=== PATIENT | female | born 1960 | race Caucasian/White ===

== ENCOUNTER → 2018-03-19 11:12 | Outpatient (CLI) | payer OTHER, SELFPAY ==
--- NOTE | 2018-03-19 11:16 | BI_ITS ---
MAMMOGRAPHY - BILATERAL SCREENING REASON FOR EXAM: Female, 57 years old. Routine annual screening examination. PERTINENT HISTORY: Sister with breast cancer. TECHNIQUE: Digital bilateral breast livia (3D mammographic acquisition) in the CC and MLO projections. 2-D mediolateral oblique (MLO) and craniocaudad (CC) views of both breasts were obtained. CAD: Full Field Digital Mammography with Computer Added Detection was performed. COMPARISON: Comparison is made with prior study dated January 26, 2017. FINDINGS: Breast Composition: The breasts are almost entirely fatty. There are no dominant masses or suspicious calcifications. No other significant abnormalities are identified. There has been no significant change since the prior study. BI/SCREENING MAMM (CAD), BILAT IMPRESSION: Stable bilateral screening mammogram. Yearly follow-up mammogram recommended. (A) ASSESSMENT CATEGORY: BIRADS Category 1: Negative. A letter regarding these results will be sent to the patient by the facility within 30 days. Approximately 10% of breast cancers are not detected by mammography. A normal mammogram should not delay biopsy of a clinically suspicious abnormality. [id number] Electronically Signed: Jose Calderon MD at 14:15 EDT Tel [phone], Service support ,
[2018-03-22 08:49] LABS: HPV APTIMA, High Risk Negative (Negative)
== END ==
PROVIDERS: Family Provider Family Medicine; PCP Family Medicine; Visit Provider Obstetrics & Gynecology
DX: Z12.31 Encounter for screening mammogram for malignant neoplasm of breast (principal); Z12.4 Encounter for screening for malignant neoplasm of cervix; Z80.3 Family history of malignant neoplasm of breast
CPT/HCPCS: 77063; 77067; 88175; G0145

== ENCOUNTER → 2021-04-25 10:16 | Outpatient (CLI) | payer OTHER, SELFPAY ==
[2021-04-25 09:36] VITALS: BMI 22.6
--- NOTE | 2021-04-25 10:18 | BI_ITS ---
MAMMOGRAPHY - BILATERAL SCREENING 3-D TOMOSYNTHESIS REASON FOR EXAM: Female, 61 years old. Annual screening. PERTINENT HISTORY: No significant family history. TECHNIQUE: 2-D mammograms and 3-D Tomosynthesis of the breast (s) were performed. CAD was performed. COMPARISON: 03/19/2018. FINDINGS: The breast composition is almost entirely fat. Scattered benign calcifications are seen. No dense spiculated masses or suspicious microcalcifications are identified. No architectural distortion is identified. There is no skin thickening or retraction. Normal lymph nodes in both axillae. There has been no significant change since the prior study. BI/SCRN MAMM (CAD)W/LIZBETH BILAT IMPRESSION: No mammographic signs of malignancy. Routine yearly mammograms recommended. ASSESSMENT CATEGORY: BIRADS Category 2: Benign. A letter regarding these results will be sent to the patient by the facility within 30 days. FOLLOW UP RECOMMENDATION: Yearly follow up mammogram recommended. (A) Approximately 10% of breast cancers are not detected by mammography. A normal mammogram should not delay biopsy of a clinically suspicious abnormality. Electronically Signed: Angel Aguayo MD at 10:58 EDT , Service support ,
[2021-04-27 22:04] LABS: HPV APTIMA, High Risk Negative (Negative)
== END ==
PROVIDERS: PCP Family Medicine; Referring Provider Obstetrics & Gynecology; Visit Provider Obstetrics & Gynecology
DX: Z12.31 Encounter for screening mammogram for malignant neoplasm of breast (principal); Z12.4 Encounter for screening for malignant neoplasm of cervix
CPT/HCPCS: 77063; 77067; 87624; 88175; G0145

== ENCOUNTER → 2023-04-26 | Outpatient (CLI) | payer MEDICARE, SELFPAY ==
--- NOTE | 2023-04-26 10:26 | BI_ITS ---
MAMMOGRAPHY - BILATERAL SCREENING REASON FOR EXAM: Female, 63 years old. Routine annual screening examination. PERTINENT HISTORY: Sister with breast cancer. TECHNIQUE: Digital bilateral breast lizbeth (3D mammographic acquisition) in the CC and MLO projections. 2-D mediolateral oblique (MLO) and craniocaudad (CC) views of both breasts were obtained. CAD: Full Field Digital Mammography with Computer Added Detection was performed. COMPARISON: Mammogram from 04/25/2021, 03/19/2018. FINDINGS: Breast Composition: There are scattered areas of fibroglandular density. There are no dominant masses or suspicious calcifications. Stable benign-appearing bilateral scattered calcifications. Stable small bilateral benign-appearing axillary lymph nodes. No other significant abnormalities are identified. There has been no significant change since the prior study. BI/SCRN MAMM (CAD)W/LIZBETH BILAT IMPRESSION: Stable bilateral screening mammogram. Yearly follow-up mammogram recommended. (A) ASSESSMENT CATEGORY: BIRADS Category 2: Benign. A letter regarding these results will be sent to the patient by the facility within 30 days. Approximately 10% of breast cancers are not detected by mammography. A normal mammogram should not delay biopsy of a clinically suspicious abnormality. Electronically Signed: Isaac Guevara DO at 8:41 EDT ,
== END | disposition home or self-care (01) ==
PROVIDERS: PCP Family Medicine; Referring Provider Nurse Practitioner Women's Health; Visit Provider Nurse Practitioner Women's Health
DX: Z12.31 Encounter for screening mammogram for malignant neoplasm of breast (principal); Z80.3 Family history of malignant neoplasm of breast
CPT/HCPCS: 77063; 77067

== ENCOUNTER → 2024-04-28 | Outpatient (CLI) | payer MEDICARE, SELFPAY ==
--- NOTE | 2024-04-28 08:11 | BI_ITS ---
MAMMOGRAPHY - BILATERAL SCREENING REASON FOR EXAM: Female, 64 years old. Routine annual screening examination. PERTINENT HISTORY: Sister with breast cancer. TECHNIQUE: Digital bilateral breast lizbeth (3D mammographic acquisition) in the CC and MLO projections. 2-D mediolateral oblique (MLO) and craniocaudad (CC) views of both breasts were obtained. CAD: Full Field Digital Mammography with Computer Added Detection was performed. COMPARISON: Comparison is made with prior study dated April 26, 2023 and April 25, 2021. FINDINGS: Breast Composition: The breasts are almost entirely fatty. There are no dominant masses or suspicious calcifications. No other significant abnormalities are identified. There has been no significant change since the prior study. BI/SCRN MAMM (CAD)W/LIZBETH BILAT IMPRESSION: Stable bilateral screening mammogram. Yearly follow-up mammogram recommended. (A) ASSESSMENT CATEGORY: BIRADS Category 1: Negative. A letter regarding these results will be sent to the patient by the facility within 30 days. Approximately 10% of breast cancers are not detected by mammography. A normal mammogram should not delay biopsy of a clinically suspicious abnormality. [id number] Electronically Signed: Jose Calderon MD at 9:33 EDT ,
== END | disposition home or self-care (01) ==
LOC: OPBI 08:11
PROVIDERS: PCP Family Medicine; Referring Provider Nurse Practitioner Women's Health; Visit Provider Nurse Practitioner Women's Health
DX: Z12.31 Encounter for screening mammogram for malignant neoplasm of breast (principal)
CPT/HCPCS: 77063; 77067

== ENCOUNTER → 2025-05-26 | Outpatient (CLI) | payer MEDICARE, SELFPAY ==
--- NOTE | 2025-05-26 12:21 | BI_ITS ---
EXAM: SCRN MAMM (CAD)W/LIZBETH BILAT DATE: 05/26/2025 CLINICAL HISTORY: F, Age 65 y/o , SCREENING FOR BREAST CANCER TECHNIQUE: SCRN MAMM (CAD)W/LIZBETH BILAT COMPARISON: Prior exam(s) were compared FINDINGS: TISSUE DENSITY: There are scattered areas of fibroglandular density. Bilateral Breast Mammographic Findings: No suspicious masses, calcifications or other abnormalities are identified. BI/SCRN MAMM (CAD)W/LIZBETH BILAT IMPRESSION: No mammographic evidence of malignancy in either breast OVERALL FINAL ASSESSMENT BI-RADS 1: NEGATIVE. RECOMMENDATION: Routine annual follow-up in 1 Year A letter with findings and recommendations will be mailed to the patient. Reading Location: [id number]
--- OUTSIDE RECORDS SUMMARY | 2025-05-26 20:34 | XMS RPT_ITS | CCD ---
Author Organization [facility] Inform ion Partnership [facility] Care Team Providers Care Inside Tester Name Role Phone Dr. Eduardo Shook Primary Care Provider Dr. Eduardo Shook Referring Provider [phone] Mau ALIGNER, RAMBOC Monie Attending Provider Eduardo Shook MD Unavailable Sanjay DOUGLAS, Carlota Dominique Unavailable Ángel COMPUTER SYSTEMS MANAGER, Nichol Unavailable Vishnu DOUGLAS, Abbe Gamboa Unavailable James SIMMONS, Rajani Villa Unavailable [phone] Beverly Pang Unavailable Unavailable Eliot SHAHN, Maru Unavailable Unavailable Nia GONZALEZ, Rajani Gamboa Unavailable Unavaila ble Angie GONZALEZ, Coco Sewell Unavailable Unavailable Josiah SIMMONS, Miriam Masters Unavailable Laura Proctor Unavailable Rea COMPUTER SYSTEMS MANAGER, Kimber Unavailable Unavailab le Vess COMPUTER SYSTEMS MANAGER, Carolyn L Unavailable Unavailable [place] COMPUTER SYSTEMS MANAGER, Pastora Unavailable Unavailabl maria Desir COMPUTER SYSTEMS MANAGER, Debra Lainez Unavailable Unavaila ble Unavailable Unavailable EDUARDO SHOOK MD Primary Care Physician [phone] EDUARDO SHOOK MD Primary Care Unavailable DOMINGA DOUGLAS, DR EDILBERTO Warren Admitting Pop CARTER MD, DR BILLINGS Consulting Unavailab jo CARTER MD, DR BILLINGS Attending Unavailab oj ADKINS MD, JANNIE PEACOCK Consulting Unavailable Dong COMPUTER SYSTEMS MANAGER, Eitan Unavailable Unavailable Young COMPUTER SYSTEMS MANAGER, Natalia Unavailable UnavailRadha Chow MA Unavailable Unavailable Abbott, Ne R Unavailable Unavailable AWA CARTER MD Primary Care Unavailable AWA CARTER MD Admitting Unavailable AWA CARTER MD Attending Unavailable WELDON, MIRIAM J Consulting Unavailable PROVIDER, UNKNOWN Consulting Unavailable AWA CARTER MD Attending Unavailable AWA CARTER MD Primary Care Unavailable AWA CARTER MD Admitting Unavailable WELDON, MIRIAM J Consulting Unavailable PROVIDER, UNKNOWN Consulting Unavailable JOSIAH, MIRIAM J Consulting Unavailable EDUARDO SHOOK Attending Unavailable EDUARDO SHOOK Primary Care Unavailable EDUARDO SHOOK Admitting Unavailable PROVIDER, UNKNOWN Consulting Unavailable AWA CARTER MD Attending Unavailable AWA CARTER MD Primary Care Unavailable AWA CARTER MD Admitting Unavailable WELDON, MIRIAM J Consulting Unavailable PROVIDER, UNKNOWN Consulting Unavailable AWA CARTER MD Attending Unavailable AWA CARTER MD Primary Care Unavailable AWA CARTER MD Admitting Unavailable WELDON, MIRIAM J Consulting Unavailable PROVIDER, UNKNOWN Consulting Unavailable Griselda Ward Attending Unavailable Eduardo Shook Referring Unavailable Eduardo Shook Primary Care Unavailable Eduardo Shook Primary Care Unavailable Griselda Ward Referring Unavailable Griselda Ward Attending Unavailable Boone DOUGLAS, Dr. Clark Primary Care Provider Dr. Griselda Ward MD Attending Provider Dr. Griselda Ward MD Referring Provider Dr. Eduardo Shook MD Referring Provider Allergies Allergy Classification Reported Allergen(s) Allergy Type Date of Onset Reaction(s) Facility Amoxicillin / Clavulanate (2 sources) Amoxicillin / Clavulanate Drug Allergy [facility], [employer] [facility], [employer]. (2 sources) Amoxicillin Drug Allergy 3 [facility] Comment on above: broke out in sweat (2 sources) Clavulanate Drug Allergy 3 [facility] Comment on above: broke out in sweat (20 sources) Amoxicillin / Clavulanate Drug Allergy [facility], [employer] (1 source) Amoxicillin / Clavulanate; Translations: [amoxicillin-cl avulanate] Drug Allergy [facility] (1 source) Amoxicillin Drug Allergy [address] [place] [address] Repository (1 source) Clavulanate Drug Allergy [facility] Repository Medications Current Medications Medication Drug Class(es) Dates Sig (Normalized) Sig (Original) aspirin 81 mg delayed release oral tablet (20 sources) Platelet Aggregation Inhibitor, Nonsteroidal Anti-inflammatory Drug Start: 02-06-2024 Aspirin (Adult Low Dose Aspirin) 81 mg tablet,delayed release (DR/EC) Active 81 mg PO DAILY April 28, 2024 12:00am Start: 04-25-2021 End: 04-26-2023 take 1 tablet by mouth once daily Aspirin 325 mg tablet Discontinued 325 mg PO DAILY April 25, 2021 12:00am April 26, 2023 9:53am atorvastatin 40 mg oral tablet (20 sources) HMG-CoA Reductase Inhibitor Start: 02-06-2024 take 1 tablet by mouth once daily Atorvastatin 40 mg tablet Active 40 mg PO DAILY April 28, 2024 12:00am 24 hr metoprolol succinate 25 mg extended release oral tablet (20 sources) beta-Adrenergic Dick Start: 04-28-2024 take 2 tablets by mouth once daily Metoprolol Succinate 25 mg tablet extended release 24 hr Active 12.5 mg PO DAILY April 28, 2024 12:00am Start: 02-06-2024 metoprolol suc cinate 25 mg oral TABLET extended release Dose : 12.5 mg = 0.5 tab(s), Oral, qDay, # 15 tab(s), 11 Refill(s), Pharmacy: [facility], 165.1, cm, 02/03/24 10:41:00 EDT, Height, kg, 02/03/24 10:41:00 EDT, Dosing Weight Start Date: 02/06/24 Status: Ordered Start: 02-06-2024 End: 02-06-2024 metoprolol succinate 25 mg o ral TABLET extended release Start: 02/06/24 8:00:00 AM EDT, Dose = 12.5 mg, = 0.5 tab(s), Oral, give with food, 0, 02/03/24 12:08:00 EDT Start Date: 02/06/24 Stop Date: 02/06/24 Status: Completed Start: 02-05-2024 End: 02-05-2024 metoprolol succinate 25 mg o ral TABLET extended release Start: 02/05/24 8:00:00 AM EDT, Dose = 12.5 mg, = 0.5 tab(s), Oral, give with food, 0, 02/03/24 12:08:00 EDT Start Date: 02/05/24 Stop Date: 02/05/24 Status: Completed Start: 02-04-2024 End: 02-04-2024 metoprolol succinate 25 mg o ral TABLET extended release Start: 02/04/24 8:00:00 AM EDT, Dose = 12.5 mg, = 0.5 tab(s), Oral, give with food, 0, 02/03/24 12:08:00 EDT Start Date: 02/04/24 Stop Date: 02/04/24 Status: Completed Toprol XL 25 mg tablet,extended release ; daily (25 mg) Comments: take half tab Comment on above: take half tab Multivitamin preparation (20 sources) Start: 03-19-2018 take 1 tablet by mouth once daily Multivitamin Active 1 TABLET PO daily March 19, 2018 12:00am take 1 tablet by mouth once meg y MULTIVITAMIN (PO Tab) ; 1 daily Status: Inactive take 1 tablet by mouth once meg y MULTIVITAMIN (PO Tab) ; 1 daily Completed/Discontinued Medications Medication Drug Class(es) Dates Sig (Normalized) Sig (Original) amoxicillin 875 mg / clavulanate 125 mg oral tablet (20 sources) Penicillin-class Antibacterial Start: 09-13-2020 End: 09-23-2020 take 1 tablet by mouth twice daily Amoxicillin-Pot Clavulanate 875-125 MG Oral Tablet ; 1 (one) Tablet bid for 10 days Quantity: 20 {Tablet} Refills: 0 Ordered: 13-Sep-2020 MD Eduardo Shook Start: 13-Sep-2020 End: 23-Sep-2020 Status: Inactive Comments: take w food Comment on above: take w food azithromycin 250 mg oral tablet (20 sources) Macrolide Antimicrobial Start: 03-09-2025 End: 03-14-2025 azithromycin 250 mg tablet ; 2 (two) tablet today then 1 qd x 4 days for 5 days Quantity: 6 {Tablet} Refills: 0 Ordered: 09-Mar-2025 MD Eduardo Shook Start: 09-Mar-2025 End: 14-Mar-2025 Status: Inactive Start: 11-14-2023 End: 11-19-2023 azithromycin 250 mg tablet ; 2 (two) tablet today then 1 qd x 4 days for 5 days Quantity: 6 {Tablet} Refills: 0 Ordered: 14-Nov-2023 MD Eduardo Shook Start: 14-Nov-2023 End: 19-Nov-2023 Status: Inactive Start: 01-01-2017 End: 02-08-2017 Zithromax Z-Gino 250 MG Oral Tablet ; 2 (two) Tabs day one, then one daily for 4 days for 0 days Quantity: 1 {Package} Refills: 0 Ordered: 08-Feb-2017 JENNIFER Wallis Pastora Start: 01-Jan-2017 End: 08-Feb-2017 Status: Inactive cephalexin 500 mg oral capsule (20 sources) Cephalosporin Antibacterial Start: 09-14-2020 End: 09-24-2020 take 2 capsules by mouth twice daily Cephalexin 500 MG Oral Capsule ; 2 (two) Capsule bid for 10 days Quantity: 40 {Capsule} Refills: 0 Ordered: 14-Sep-2020 MD Eduardo Shook Start: 14-Sep-2020 End: 24-Sep-2020 Status: Inactive estrogens, conjugated (chcf) 0.625 mg/ml vaginal cream (20 sources) Estrogen Start: 02-09-2017 End: 09-24-2023 Premarin 0.625 mg/gram vaginal cream ; 0.5 gram gram daily x 2 weeks and then twice a week for 0 days Quantity: 30 {Gram} Refills: 0 Ordered: 24-Sep-2023 JENNIFER Rincon Bernadette Recinos Start: 09-Feb-2017 End: 24-Sep-2023 Status: Inactive famciclovir 500 mg oral tablet (20 sources) Herpes Simplex Virus Nucleoside Analog DNA Polymerase Inhibitor Start: 12-11-2017 End: 12-18-2017 take 1 tablet by mouth every eight hours Famvir 500 MG Oral Tablet ; 1 (one) Tablet Every 8 hours for shingles for 7 days Quantity: 21 {Tablet} Refills: 0 Ordered: 11-Dec-2017 MD Eduardo Shook Start: 11-Dec-2017 End: 18-Dec-2017 Status: Inactive fluticasone propionate 0.05 mg/actuat metered dose nasal spray (20 sources) Corticosteroid Start: 06-17-2013 End: 02-03-2014 take 2 spray(s) nasal route once daily FLUTICASONE PROPIONATE, 50MCG/ACT (Nasal Suspension) ; 2 (two) spray(s) two puffs each nostril once daily for 0 days Quantity: 1 {bottle(s)} Refills: 2 Ordered: 03-Feb-2014 JENNIFER Neal Start: 17-Jun-2013 End: 03-Feb-2014 Status: Inactive gabapentin 300 mg oral capsule (20 sources) Anti-epileptic Agent Start: 12-11-2017 End: 09-24-2023 gabapentin 300 mg capsule ; 1 (one) Capsule Capsule tid prn for 0 days Quantity: 60 {Capsule} Refills: 2 Ordered: 24-Sep-2023 Mckenzie, JENNIFER Bernadette Recinos Start: 11-Dec-2017 End: 24-Sep-2023 Status: Inactive meclizine hydrochloride 25 mg oral tablet (20 sources) Antiemetic Start: 08-20-2019 End: 09-24-2023 meclizine 25 mg tablet ; 1 (one) Tablet q 6hrs prn vertigo for 0 days Quantity: 30 {Tablet} Refills: 0 Ordered: 24-Sep-2023 Rea, JENNIFER Bernadette Recinos Start: 20-Aug-2019 End: 24-Sep-2023 Status: Inactive Multivitamin tablet (1 source) Start: 03-19-2018 End: 04-28-2024 Multivitamin tablet Discontinued 1 {tbl} PO daily March 19, 2018 12:00am April 28, 2024 9:35am oxymetazoline hydrochloride 0.5 mg/ml nasal spray (20 sources) Start: 06-17-2013 End: 02-03-2014 take 1-2 spray(s) nasal route once daily at bedtime OXYMETAZOLINE HCL, 0.05% (Nasal Solution) ; 1-2 spray(s) each nostril daily at bedtime for 0 days Quantity: 1 {bottle(s)} Refills: 0 Ordered: 03-Feb-2014 JENNIFER Neal Start: 17-Jun-2013 End: 03-Feb-2014 Status: Inactive Comments: OTC Comment on above: OTC ticagrelor 90 mg oral tablet (20 sources) Start: 02-06-2024 End: 05-26-2025 take 1 tablet by mouth twice daily Ticagrelor (Brilinta) 90 mg tablet Discontinued 90 mg PO TWICE A DAY April 28, 2024 12:00am May 26, 2025 1:17pm Problems Active Problems Problem Classification Problem Date Documented Date Episodic/Chronic Acute myocardial infarction (20 sources) Non-ST elevation (NSTEMI) myocardial infarction; Translations: [Myocardial infarction] Chronic Chronic obstructive pulmonary disease and bronchiectasis (20 sources) Bronchitis; Translations: [Bronchitis, not specified as acute or chronic] 11-08-2023 Episodic Conditions associated with dizziness or vertigo (20 sources) Vertigo; Translations: [Dizziness and giddiness] 08-20-2019 Episodic Coronary atherosclerosis and other heart disease (20 sources) Coronary atherosclerosis; Translations: [Atherosclerotic heart disease of saxman coronary artery without angina pectoris] Onset: 08-27-2024 Chronic Comment on above: February 2024 2 stents Diabetes or abnormal glucose tolerance complicating ; childbirth; or the puerperium (20 sources) H/O: diabetes mellitus; Translations: [Personal history of gestational diabetes] 11-08-2023 Episodic Comment on above: late in second pregn abby Disorders of lipid metabolism (20 sources) Hyperlipidemia; Translations: [Hyperlipidemia, unspecified] 11-08-2023 Chronic Esophageal disorders (20 sources) Gastroesophageal reflux disease; Translations: [Gastro-esophageal reflux disease without esophagitis] 11-08-2023 Chronic Essential hypertension (20 sources) Hypertensive disorder; Translations: [Essential (primary) hypertension] 11-11-2024 Chronic Menopausal disorders (20 sources) Atrophic vaginitis; Translations: [Postmenopausal atrophic vaginitis] 11-08-2023 Chronic Other lower respiratory disease (20 sources) Cough; Translations: [Cough] 03-09-2025 Episodic Other screening for suspected conditions (not mental disorders or infectious disease) (20 sources) Special screening for malignant neoplasms of colon; Translations: [Patient encounter status] Onset: 05-22-2025 01-01-2017 Episodic Other skin disorders (20 sources) Skin lesion; Translations: [Disorder of the skin and subcutaneous tissue, unspecified] 11-08-2023 Episodic Other skin disorders (20 sources) Skin tag; Translations: [Other hypertrophic disorders of the skin] 11-08-2023 Episodic Other upper respiratory infections (20 sources) Sinusitis; Translations: [Chronic sinusitis, unspecified] 11-08-2023 Chronic Other upper respiratory infections (20 sources) Acute sinusitis, unspecified 01-01-2017 Episodic Otitis media and related conditions (20 sources) Dysfunction of Eustachian tube 06-17-2013 Episodic Niya-; endo-; and myocarditis; cardiomyopathy (except that caused by tuberculosis or sexually transmitted disease) (20 sources) Cardiomyopathy; Translations: [Cardiomyopathy, unspecified] 11-11-2024 Chronic Residual codes; unclassified (3 sources) Family history of breast cancer; Translations: [Family history of malignant neoplasm of breast] 04-26-2023 Episodic Comment on above: declines tino empo wer, family history of breast(sister) and ovarian(mother) cancer Residual codes; unclassified (1 source) Family history of malignant neoplasm of breast; Translations: [Family history of malignant neoplasm of breast] 04-26-2023 Episodic Residual codes; unclassified (20 sources) Body mass index 20-24 - normal; Translations: [Body mass index (BMI) 22.0-22.9, adult] 11-08-2023 Episodic Residual codes; unclassified (20 sources) Influenza vaccination declined; Translations: [Immunization not carried out because of patient refusal] 11-08-2023 Episodic Residual codes; unclassified (20 sources) Colon cancer screening declined; Translations: [Procedure and treatment not carried out because of patient's decision for unspecified reasons] 05-05-2024 Episodic Residual codes; unclassified (20 sources) Pneumococcal vaccination declined; Translations: [Immunization not carried out because of patient refusal] 05-05-2024 Episodic Residual codes; unclassified (2 sources) Patient encounter status; Translations: [Other specified personal risk factors, not elsewhere classified] 04-28-2024 Episodic Comment on above: family history ovari an and breast cancer, recommend annual exams. Unclassified (20 sources) Number of Children 02-09-2017 Comment on above: 2. Unclassified (20 sources) Number of Pregnancies 02-09-2017 Comment on above: 2. Unclassified (20 sources) Vaginal deliveries 02-09-2017 Comment on above: 2. Unclassified (15 sources) Follow up for multiple chronic conditions - The patient is here for follow-up of coronary artery disease, GERD and hyperlipidemia. The patient always takes the prescribed medications. No side effects noted. The patient engages in regular exercise program 3-5 times per week. The patient's out of office blood pressure checks occur rarely. The patient states that they do not have headaches. Note for Multiple chronic conditions follow-up: reviewed by [facility] 11-11-2024 Viral infection (20 sources) Herpes zoster; Translations: [Zoster without complications] 11-08-2023 Episodic Past or Other Problems Problem Classification Problem Date Documented Da te Episodic/Chronic Unclassified (20 sources) MCR Well Adult - In general the patient feels well with no complaints, has good energy level and is sleeping well. The patient has a balanced diet. The patient exercises 3 - 4 times per week (walk 5 x a week) and sleeps 7 (8) hours per night. The patient denies having trouble with bathing, dressing/grooming, toileting, preparing meals and ambulating. The patient denies having trouble with grocery shopping, driving, use of telephone, housework, laundry, preparing/taking medications and finances. The patient performs monthly self breast exam. The patient has a Healthcare Power of Button Broacher and a Living Will. Note for MCR Well Adult: pt had an eye exam within the last year reviewed by [facility] 11-08-2023 Unclassified (20 sources) Cold Symptoms - Symptoms include nasal congestion, ear pain (right side pressure) and facial pain, but do not include sneezing, runny nose, sore throat, dry cough, productive cough, fever, chills, general malaise or headache. The onset was sudden 6 day(s) ago. The symptoms occur constantly. The patient describes this as moderate in severity and worsening. Current treatment includes non-prescription cold medication. Note for Upper respiratory infection: reviewed by [facility] 09-13-2020 Unclassified (20 sources) Dizziness - The onset of the dizziness has been acute and has been occurring in an intermittent pattern for 2 days. The course has been recurrent. The dizziness is characterized as lightheadedness and spinning of the environment. The dizziness is precipitated by position change. There has been associated headache and ear pain (right ear painful last week.), while there has been no associated nausea. The dizziness is relieved by avoiding head movements. 08-20-2019 Unclassified (20 sources) Rash - The onset of the rash has been acute and has been occurring in a persistent pattern for 1 week. The course has been increasing. The rash is characterized as red. The rash was first seen on the trunk. There has been no progression. There has been associated itching and pain. Note for Rash: reviewed by [facility] 12-11-2017 Unclassified (20 sources) Well adult female - The patient feels well with no complaints, has good energy level and is sleeping well. The first day of the last menstrual period was : (2010). The current method of contraception is: tubal ligation. The patient has a balanced diet and takes supplemental vitamins. The patient does not exercise. The patient sleeps 8 hours per night. Note for Well adult female: Does labs yearly through her work - in the fall. 02-12-2017 Unclassified (20 sources) Cold Symptoms - Symptoms include sore throat (), dry cough and productive cough, but do not include nasal congestion, runny nose, ear pain, fever, chills or headache. The onset was gradual 4 day(s) ago. The symptoms occur constantly. The patient describes this as moderate in severity and worsening. Current treatment includes non-prescription cold medication (an expectorant). The patient has not been exposed to an individual with similar symptoms. Medical history includes tonsillectomy, but patient denies history of seasonal allergies, recurrent sinusitis, recurrent strep pharyngitis, asthma or recurrent ear infections. Note for Upper respiratory infection: alot of chest congestion. 01-01-2017 Unclassified (20 sources) Skin lesion - The skin lesion appeared gradually and has been occurring for 2 weeks. The lesion is characterized as red. The lesion is located on the trunk (the upper chest). Note for Skin lesion: no recent sun exposure 09-09-2015 Unclassified (20 sources) Well adult female - The patient feels well with minor complaints, has decreased energy level (some) and is sleeping well. The patient has a balanced diet and takes supplemental vitamins. The patient does not exercise. The patient sleeps 8 hours per night. Note for Well adult female: Reports that she has had worsened hot flashes and would like to discuss a medication to help with the hot flashes. 07-16-2015 Unclassified (20 sources) Well adult female - The patient feels well with no complaints, has good energy level and is sleeping well. The first day of the last menstrual period was : (2010). The patient takes supplemental vitamins. The patient does not exercise. The patient sleeps 7 hours per night. 03-16-2014 Unclassified (20 sources) Ear pain - The onset of the pain has been acute and has been occurring in an intermittent pattern for 1 week. The course has been increasing. The pain is described as a moderate plugged. The pain is described as being located in the inner ear. The pain is felt in both ears. The symptoms have been associated with decreased hearing. 06-17-2013 Unclassified (20 sources) Cold Symptoms - Symptoms include nasal congestion, runny nose, purulent discharge, ear fullness, productive cough (c/o chest discomfort at times), general malaise and headache, but do not include sneezing, ear pain, sore throat, scratchy throat, fever or chills. The onset was gradual 6 day(s) ago. The symptoms occur constantly. The patient describes this as moderate in severity and worsening. Current treatment includes non-prescription cold medication (mucinex). Risk factors do not include smoking. The patient has been exposed to an individual with an upper respiratory infection. Medical history includes tonsillectomy, but patient denies history of seasonal allergies, recurrent sinusitis, recurrent strep pharyngitis, asthma or recurrent ear infections. 12-25-2012 Unclassified (20 sources) Well Adult, female - The patient feels well with no complaints, has good energy level and is sleeping well. The first day of the last menstrual period was : (03/2011). The patient has a balanced diet and takes supplemental vitamins. The patient exercises weekly. Note for Well Adult, female: Patient has a skin tag under her left breast she would like checked and possibly removed. Patient declines a flu shot. 09-30-2012 Unclassified (20 sources) Cold Symptoms - Symptoms include nasal congestion, runny nose, ear pain, ear fullness, dry cough, general malaise, headache and facial pain. The onset was gradual 5 day(s) ago. The symptoms occur constantly. The patient describes this as mild and unchanged. Current treatment includes increased fluid intake and cough suppressants. Risk factors do not include child in daycare or smoking. The patient has been exposed to an individual with similar symptoms. Patient denies history of seasonal allergies, recurrent sinusitis, recurrent strep pharyngitis, asthma, tonsillectomy or recurrent ear infections. Note for Upper respiratory infection: reviewed by [facility] 11-14-2023 Unclassified (18 sources) Transition into care - The patient is transitioning into care from a hospital and a summary of care was reviewed. 02-13-2024 Unclassified (18 sources) [ADDITIONAL REASON] Follow up from hospital stay - Name of Hospital: [facility]. Date of Admission: 02/03/24. Date of Discharge: 02/06/24. The patient was hospitalized for Stent placement. New medications include Added to med list. Patient was discharged to home. Current Symptoms: no symptoms. Note for Follow up from hospital stay: reviewed by [facility] 02-13-2024 Unclassified (7 sources) Follow up from hospital stay - Name of Hospital: [facility]. Date of Admission: 02/03/24. Date of Discharge: 02/06/24. The patient was hospitalized for Stent placement. New medications include Added to med list. Patient was discharged to home. Current Symptoms: no symptoms. Note for Follow up from hospital stay: reviewed by [facility] 02-14-2024 Unclassified (7 sources) [ADDITIONAL REASON] Transition into care - The patient is transitioning into care from a hospital and a summary of care was reviewed. 02-14-2024 Unclassified (19 sources) MCR Well Adult - In general the patient feels well with no complaints, has good energy level and is sleeping well. The patient has a balanced diet and takes no supplemental vitamins & iron. The patient exercises 3 - 4 times per week (walks) and sleeps 8 hours per night. The patient denies having trouble with bathing, dressing/grooming, toileting, preparing meals and ambulating. The patient denies having trouble with grocery shopping, driving, use of telephone, housework, laundry, preparing/taking medications and finances. The patient performs monthly self breast exam (Last mammogram 04-28-24). The patient has a Healthcare Power of Button Broacher and a Living Will. 05-05-2024 Unclassified (11 sources) Cold Symptoms - Symptoms include nasal congestion, hoarseness, dry cough and general malaise, but do not include fever or headache. The onset was 5 day(s) ago. The patient is not currently being treated for this problem. Note for Upper respiratory infection: Spouse is also similarly ill 03-09-2025 Unclassified (5 sources) MCR Well Adult - In general the patient feels well with no complaints, has good energy level and is sleeping well. The patient has a balanced diet. The patient exercises 3 - 4 times per week and sleeps 7 (8) hours per night. The patient denies having trouble with bathing, dressing/grooming, toileting, preparing meals and ambulating. The patient denies having trouble with grocery shopping, driving, use of telephone, housework, laundry, preparing/taking medications and finances. The patient does not perform monthly breast self exam. The patient has a Healthcare Power of Button Broacher and a Living Will. Note for [facility] Well Adult: Metoprolol does make her tired sometimes reviewed by [facility] 04-21-2025 Results Test Name Value Interpretation Reference Range Facility LIPOPROTEIN (A) [CCL]on 05-05 Lipoprotein a [Mass/Vol] 82 mg/dL High <30 [facility] Comment on above: Result Comment: [facility] [address] [place] [address] Dakota Garcia III, M.D. [id number] Performed By: #### 2 50413 #### [address] [address] LIPID PROFILEon 05-13-2025 Cholesterol [Mass/Vol] 141 mg/dL Normal 0 - 240 [facility] Comment on above: Performed By: #### 2 12003 #### [facility],[address] [place] [address] Cholesterol in HDL [Mass/Vol] 59 mg/dL Normal 40 - 60 [facility] Comment on above: Performed By: #### 2 18988 #### [facility],[address] [place] [address] Cholesterol in LDL [Mass/Vol] 67 mg/dL Normal 0 - 129 [facility] Comment on above: Performed By: #### 2 47382 #### [facility],[address] [place] [address] Cholesterol.total/Cho lesterol in HDL [Mass ratio] 2.4 {ratio} Normal 0.0 - 5.0 [facility] Comment on above: Performed By: #### 2 77400 #### [address] [address] Lipid 1996 panel Normal [facility] Comment on above: Result Comment: LIPI D PROFILE Performed By: #### 2 39976 #### [facility],[address] [place] [address] Triglyceride [Mass/Vol] 74 mg/dL Normal 0 - 150 [facility] Comment on above: Performed By: #### 2 25325 #### [facility],[address] [place] [address] CMP with eGFRon 04-13-2025 AGE 65 years Normal [facility] Comment on above: Performed By: #### 2 85552 #### [address] [address] Albumin [Mass/Vol] 3.7 g/dL Normal 3.4 - 5.0 [facility], [facility].; [facility] Comment on above: Performed By: #### 2 75311 #### [facility],[address] [place] [address] Albumin/Globulin [Mass ratio] 1.1 {ratio} Normal 0.9 - 1.6 [facility] Comment on above: Performed By: #### 2 31766 #### [facility],[address] [place] [address] ALK PHOS 97 U/L Normal 46 - 116 [facility] Comment on above: Performed By: #### 2 59579 #### [address] [address] ALT [Catalytic activity/Vol] 39 U/L Normal 16 - 63 [facility] Comment on above: Performed By: #### 2 26545 #### [facility],[address] [place] [address] Anion gap [Moles/Vol] 11 mmol/L Normal 10 - 20 [facility].; [facility] Comment on above: Performed By: #### 2 81513 #### [place] [id number] AST [Catalytic activity/Vol] 20 U/L Normal 13 - 39 [facility], [facility] Comment on above: Performed By: #### 2 48311 #### [place] [address] B/C RATIO 18 ratio Normal 0 - 30 [facility] Comment on above: Performed By: #### 2 56878 #### [place] [id number] Bilirubin [Mass/Vol] 0.4 mg/dL Normal 0.2 - 1.0 [facility].; [facility], [facility] Comment on above: Performed By: #### 2 85316 #### [address] [address] Calcium [Mass/Vol] 9.0 mg/dL Normal 8.5 - 10.1 [facility]; [facility] Comment on above: Performed By: #### 2 13871 #### [address] [address] Chloride [Moles/Vol] 104 mmol/L Normal 98 - 107 [facility]; [facility] Comment on above: Performed By: #### 2 77139 #### [address] [address] CMP with eGFR Normal [facility] Comment on above: Result Comment: COMP REHENSIVE METABOLIC PANEL Performed By: #### 2 80259 #### [address] [address] CO2 [Moles/Vol] 31.5 mmol/L Normal 21.0 - 32.0 [facility], [facility].; [facility], [employer]. Comment on above: Performed By: #### 2 51001 #### [place] [address] Creatinine [Mass/Vol] 0.79 mg/dL Normal 0.55 - 1.02 [facility], [facility].; [facility], [employer]. Comment on above: Performed By: #### 2 11267 #### [place] [address] GFR/1.73 sq M.predicted among non-blacks MDRD (S/P/Bld) [Vol rate/Area] mL/min/{1.73_m2} Normal 60 - 999 [facility] Comment on above: Performed By: #### 2 19345 #### [place] [address] Result Comment: ACCO RDING TO THE NATIONAL KIDNEY DISEASE EDUCATION PROGRAM(NKDE), A NORMAL eGFR IS A VALUE GREATER THAN OR EQUAL TO 60 ML/MIN/1.73 SQ METERS. CHRONIC KIDNEY DISEASE: <60mL/MIN/1.73 SQ METERS KIDNEY FAILURE: <15mL/MIN/1.73 SQ METERS THIS TEST SHOULD ONLY BE USED FOR PATIENTS 18 YEARS OF AGE AND OLDER. Globulin (S) [Mass/Vol] 3.4 g/dL Normal 1.5 - 3.8 [facility], [facility].; [facility], [employer]. Comment on above: Performed By: #### 2 18036 #### [place] [id number] Glucose [Mass/Vol] 103 mg/dL Normal 74 - 106 [facility], [facility].; [facility] [place] [facility], [employer]. Comment on above: Performed By: #### 2 55073 #### [place] [id number] Potassium [Moles/Vol] 4.0 mmol/L Normal 3.5 - 5.1 [facility].; [facility] Comment on above: Performed By: #### 2 92987 #### [place] [address] Protein [Mass/Vol] 7.1 g/dL Normal 6.4 - 8.2 [facility], [facility].; [facility]. Comment on above: Performed By: #### 2 09009 #### [place] [address] Sodium [Moles/Vol] 142 mmol/L Normal 136 - 145 [facility], [employer]. Comment on above: Performed By: #### 2 23603 #### [place] [address] Urea nitrogen [Mass/Vol] 14 mg/dL Normal 7 - 18 [facility] Comment on above: Performed By: #### 2 58858 #### [place] [id number] HEMOGLOBIN A1C (POM)on 04-13 Glucose [Mass/Vol] 119.8 mg/dL High 0.0 - 0.0 [facility] Comment on above: Result Comment: Do HEMOGLOBIN A1C REFERENCE RANGESBLDo Suggested Diagnosis HbA1c(%) HbA1C (mmol/mol Diabetic >/=6.5 >/=48 Prediabetes 5.7 - 6.4 39 - 47 Normal <5.7 <39 Performed By: #### 2 61773 #### [place] [id number] HbA1c (Bld) [Mass fraction] 5.8 % Normal 0.0 - 6.5 [facility].; [place] [facility]. Comment on above: Performed By: #### 2 26698 #### [place] [id number] LIPID PROFILEon 04-13-2025 Cholesterol [Mass/Vol] 118 mg/dL Normal 0 - 240 [facility].; [place] [facility]. Comment on above: Performed By: #### 2 02324 #### [facility],[address] [place] [address] Cholesterol in HDL [Mass/Vol] 53 mg/dL Normal 40 - 60 [facility] Comment on above: Performed By: #### 2 77302 #### [facility],[address] [place] [address] Cholesterol in LDL [Mass/Vol] 57 mg/dL Normal 0 - 129 [facility], [facility]. Comment on above: Performed By: #### 2 40791 #### [address] [address] Cholesterol.total/Cho lesterol in HDL [Mass ratio] 2.2 {ratio} Normal 0.0 - 5.0 [facility], [facility].; [facility] Comment on above: Performed By: #### 2 07388 #### [address] [address] Lipid 1996 panel Normal [facility] Comment on above: Result Comment: LIPI D PROFILE Performed By: #### 2 76028 #### [address] [address] Triglyceride [Mass/Vol] 39 mg/dL Normal 0 - 150 [facility], [employer]. Comment on above: Performed By: #### 2 61655 #### [address] [address] Laboratory - Chemistry and C hemistry - challengeon 04-13-2025 Albumin [Mass/Vol] 1.1 g/dL Normal 0.9 - 1.6 [facility], [facility].; [facility] ALP [Catalytic activity/Vol] 97 U/L Normal 46 - 116 U/L [facility], [facility].; [facility], [facility]. Average glucose Estimated from glycated hemoglobin (Bld) [Mass/Vol] 119.8 mg/dL Abnormal 0.0 - 0.0 mg/dL [facility].; [facility], [facility]. Cholesterol in HDL [Mass or moles/Vol] 53 mg/dL Normal 40 - 60 mg/dL [facility].; [facility], [facility]. Comprehensive metabolic 2000 panel CMP with eGFR Normal [facility]; [facility] GFR/1.73 sq M.predicted among blacks MDRD (S/P/Bld) [Vol rate/Area] mL/min/{1.73_m2} Normal 60 - 999 {ML/MINUTE} [facility], [facility]. GFR/1.73 sq M.predicted MDRD (S/P/Bld) [Vol rate/Area] mL/min/{1.73_m2} Normal 60 - 999 {ML/MINUTE} [facility], [facility]. Lipid 1996 panel LIPID PROFILE Normal [facility]; [facility] Urea nitrogen/Creatinine [Mass ratio] 18 {ratio} Normal 0 - 30 {ratio} [facility], [facility] No Panel Informationon 04-13 AGE 65 {years} Normal [facility]; [facility] CV ECHO COMPLETEon CV ECHO COMPLETE [place] [address] Patient: LAWSONCARMENREINALDO Phone#: : 1960 Age: 64 Gender: F Pt. Type: Out Account: [id number] Location: Ordering: [facility] Exam Date: 09/15/2024/11:55 Family Phys: Charge Code: [id number] Physician: Stanislaus Order #: [id number] Dose#: PROCEDURE: ECHOCARDIOGRAM WITH DOPPLER AND COLOR FLOW HISTORY: Coronary disease INDICATIONS: CAD COMPARISON: None. TECHNIQUE: A 2-D ultrasound, color spectral Doppler and M-mode evaluation of the heart and great vessels. PATIENT MEASUREMENTS: Height (in.): 65 BSA: 1.58 Weight (lbs.): 118 BP: 149/90 Real Estate Agent/Broker: JOHANA M MODE 2D MEASUREMENTS AND CALCULATIONS: LVIDd: 3.17 cm LVIDs: 2.30 cm IVSd: 1.07 cm LVPWd: 0.98 cm LVOT diam: 1.94 cm FS: 27.50 % Ao Root diam: 2.62 cm LA diam: LA Volume Index: LA A4 Area: 14.40 cm2 RA A4 Area: RVDd: TAPSE: DOPPLER MEASUREMENTS AND CALCULATIONS MITRAL MV E MAX fabián: 0.78 m/s MV A MAX fabián: 0.55 m/s MV E-A ratio: 1.41 MVA VTI 2.43 cm2 MV V2 max: 0.88 m/s MV max P.10 mm[Hg] MV V2 mean: 0.51 m/s Continued Report - Page 2 of 3 Patient: REINALDO MIRANDA Phone#: : 1960 Age: 64 Gender: F Pt. Type: Out Account: [id number] Location: Ordering: [facility] Exam Date: 09/15/2024/11:55 Family Phys: Charge Code: [id number] Physician: Stanislaus Order #: [id number] Dose#: MV mean P.18 mm[Hg] MV V2 VTI: 24.48 cm MV PHT: 78.30 ms MVA PHT 2.81 cm2 ERO: Reg Vol Lat Peak E' Fabián Septal Peak E' FABIÁN AORTIC Ao V2 max: 1.20 m/s Ao max P.79 mm[Hg] Ao V2 mean: 0.95 m/s Ao mean P.84 mm[Hg] Ao V2 VTI: 29.96 cm KARINE (V Max): 2.12 cm2 KARINE (VTI): 1.98 cm2 AI max fabián AI max PG AI dec Kimball AI PHT LV V1 Max 0.86 m/s LV V1 Max PG 2.96 mm[Hg] LV V1 Mean PG 1.59 mm[Hg] LV V1 mean 0.59 m/s LV V1 VTI 20.02 cm PULMONIC PA V2 Max 0.85 m/s PA Max PG 2.90 mm[Hg] TRICUSPID TR Max Fabián 2.36 m/s TR max PG 22.36 mm[Hg] RVSP 2D/M-MODE AND COLOR FLOW LEFT VENTRICLE: Normal left ventricular systolic function. There is mild left ventricular hypertrophy. The estimated left ventricular ejection fraction is 55-60%. There appears to be normal diastolic function WALL MOTION: 1 - Basal anterior: Normal. 7 - Mid anterior: Normal. 13 - Apical anterior: Normal. 2 - Basal anteroseptal: Normal. 8 - Mid anteroseptal: Normal. 14 - Apical septal: Normal. 3 - Basal inferoseptal: Normal. 9 - Mid inferoseptal: Normal. 15 - Apical inferior: Normal. 4 - Basal inferior: Normal. 10-Mid inferior: Normal. 16 - Apical lateral: Normal. Continued Report - Page 3 of 3 Patient: REINALDO MIRANDA Phone#: : 1960 Age: 64 Gender: F Pt. Type: Out Account: [id number] Location: Ordering: [facility] Exam Date: 09/15/2024/11:55 Family Phys: Charge Code: [id number] Physician: Stanislaus Order #: [id number] Dose#: 5 - Basal inferolateral: Normal. 11-Mid inferolateral: Normal. 6 - Basal anterolateral: Normal. 12-Mid anterolateral: Normal. RIGHT VENTRICLE: Normal right ventricular size and systolic function LEFT ATRIUM: Mild left atrial enlargement RIGHT ATRIUM: Grossly normal size ATRIAL SEPTUM: Intact MITRAL VALVE: Zbfh-[id number] mitral annular calcification. There is mild mitral regurgitation TRICUSPID VALVE: Short structurally normal. Mild tricuspid regurgitation AORTIC VALVE: Aortic valve appears to be sclerotic. There is trivial aortic insufficiency PULMONIC VALVE: There is mild pulmonic insufficiency AORTIC ROOT: Grossly normal size AORTIC ARCH: DESC THORACIC AORTA: IVC/SVC: IVC normal with greater than 50% decrease in diameter with respiratory cycle PULMONARY ARTERY: PULMONARY VEINS: PERICARDIUM: No pericardial effusion PLEURA: CONCLUSION: 1. Normal left ventricular size and systolic function. There is mild left ventricular hypertrophy. The estimated left ventricular ejection fraction is 55-60% 2. Aortic valve sclerosis. There is trivial aortic insufficiency. 3. Utsq-tv-ohmjplwy mitral annular calcification 4. Mild mitral regurgitation 5. Mild tricuspid regurgitation 6. Mild pulmonic insufficiency 7. Mild left atrial enlargement Dictated by: Elliott Thrasher MD on 09/16/2024 at 16:57 Approved by: Elliott Thrasher MD on 09/16/2024 at 17:18 Normal [facility] LIPID PROFILEon 08-27-2024 Cholesterol [Mass/Vol] 133 mg/dL Normal 0 - 240 [facility] Comment on above: Performed By: #### 2 68029 #### [facility],[address] [place] [address] Cholesterol in HDL [Mass/Vol] 59 mg/dL Normal 40 - 60 [facility] Comment on above: Performed By: #### 2 01604 #### [facility],[address] [place] [address] Cholesterol in LDL [Mass/Vol] 55 mg/dL Normal 0 - 129 [facility] Comment on above: Performed By: #### 2 51290 #### [facility],[address] [place] [address] Cholesterol.total/Cho lesterol in HDL [Mass ratio] 2.3 {ratio} Normal 0.0 - 5.0 [facility] Comment on above: Performed By: #### 2 31439 #### [facility],[address] [place] [address] Lipid 1996 panel Normal [facility] Comment on above: Result Comment: LIPI D PROFILE Performed By: #### 2 99351 #### [facility],[address] [place] [address] Triglyceride [Mass/Vol] 94 mg/dL Normal 0 - 150 [facility] Comment on above: Performed By: #### 2 80026 #### [facility],[address] [place] [address] COMPREHENSIVE METABOLIC PANE [place] 05-01-2024 Albumin [Mass/Vol] 4.7 g/dL Normal 3.6-5.1 [facility] Comment on above: Performed By: #### 1 1721, 8160 #### [facility] [address], [address] [place] [id number] [employer]ister Winder: Cosmo Childers MD Albumin/Globulin [Mass ratio] 2.0 {ratio} Normal 1.0-2.5 [facility] Comment on above: Performed By: #### 1 023, 7600 #### [facility] of [place] [address] [employer] Twister Winder: Cosmo Childers MD ALP [Catalytic activity/Vol] 103 U/L Normal 37-153 [facility] Comment on above: Performed By: #### 1 230, 7600 #### [facility] of [address], [address] [place] [address] [employer]ister Winder: Cosmo Childers MD ALT [Catalytic activity/Vol] 31 U/L High 6-29 [facility] Comment on above: Performed By: #### 1 023, 7600 #### [facility] [place] [address] [employer] Twister Winder: Cosmo Childers MD AST [Catalytic activity/Vol] 25 U/L Normal 10-35 [facility] Comment on above: Performed By: #### 1 230, 7600 #### [facility] of [place] [address] [employer] Twister Winder: Cosmo Childers MD Bilirubin [Mass/Vol] 0.6 mg/dL Normal 0.2-1.2 [facility] Comment on above: Performed By: #### 1 230, 7600 #### [facility] of [place] [address] [employer]ister Winder: Cosmo Childers MD BUN/CREATININE RATIO SEE NOTE: Normal 6-22 [facility] Comment on above: Result Comment: Not Reported: BUN and Creatinine are within reference range. Performed By: #### 1 023, 7600 #### [facility] of [place] [address] [employer]ister Winder: Cosmo Childers MD Calcium [Mass/Vol] 9.8 mg/dL Normal 8.6-10.4 [facility] Comment on above: Performed By: #### 1 023, 7600 #### [facility] of [address], [address] [place] [address] [employer]ister Winder: Cosmo Childers MD Chloride [Moles/Vol] 103 mmol/L Normal 98-110 [facility] Comment on above: Performed By: #### 1 0231, 7600 #### [facility] of [address], [address] [place] [address] [employer]ister Winder: Cosmo Childers MD CO2 [Moles/Vol] 29 mmol/L Normal 20-32 [facility] Comment on above: Performed By: #### 1 0231, 7600 #### [facility] of [place] [address] [employer] Twister Winder: Cosmo Childers MD Creatinine [Mass/Vol] 0.72 mg/dL Normal 0.50-1.[address] [facility] Comment on above: Performed By: #### 1 023, 7600 #### [facility] [place] [address] [employer]ister Winder: Cosmo Childers MD GFR/1.73 sq M.predicted among non-blacks MDRD (S/P/Bld) [Vol rate/Area] 92 mL/min/{1.73_m2} Normal > OR = 60 [facility] Comment on above: Performed By: #### 1 0231, 7600 #### [facility] [place] [address] [employer] Winder: Cosmo Childers MD Globulin (S) [Mass/Vol] 2.4 g/dL Normal 1.9-3.7 [facility] Comment on above: Performed By: #### 1 0231, 7600 #### [facility] of [place] [address] [employer] Twister Winder: Cosmo Childers MD Glucose [Mass/Vol] 111 mg/dL High 65-99 [facility] Comment on above: Result Comment: Fasting reference interval For someone without known diabetes, a glucose value between 100 and 125 mg/dL is consistent with prediabetes and should be confirmed with a follow-up test. Performed By: #### 1 0231, 7600 #### [facility] of [address], [address] [place] [address] [employer] Winder: Cosmo Childers MD Potassium [Moles/Vol] 4.7 mmol/L Normal 3.5-5.[address] [facility] Comment on above: Performed By: #### 1 0231, 7600 #### [facility] of [address], [address] [place] [address] [employer]ister Winder: Cosmo Childers MD Protein [Mass/Vol] 7.1 g/dL Normal 6.1-8.1 [facility] Comment on above: Performed By: #### 1 0231, 7600 #### [facility] of [address], [address] [place] [address] [employer]ister Winder: Cosmo Childers MD Sodium [Moles/Vol] 141 mmol/L Normal 135-146 [facility] Comment on above: Performed By: #### 1 0231, 7600 #### [facility] of [address], [address] [place] [address] [employer]ister Winder: Cosmo Childers MD Urea nitrogen [Mass/Vol] 10 mg/dL Normal 7-25 [facility] Comment on above: Performed By: #### 1 0231, 7600 #### [facility] of [address], [address] [place] [address] [employer]ister Winder: Cosmo Childers MD LIPID PANEL, [facility] 04-06 Cholesterol [Mass/Vol] 124 mg/dL Normal <200 [facility] Comment on above: Performed By: #### 1 0231, 7600 #### [facility] of [address], [address] [place] [address] [employer]ister Winder: Cosmo Childers MD Cholesterol in HDL [Mass/Vol] 46 mg/dL Low > OR = 50 [facility] Comment on above: Performed By: #### 1 0231, 7600 #### [facility] of [address], [address] [place] [address] [employer] Twister Winder: Cosmo Childers MD Cholesterol in LDL [Mass/Vol] 61 mg/dL Normal [facility] Comment on above: Result Comment: Refe rence range: <100 Desirable range <100 mg/dL for primary prevention; <70 mg/dL for patients with CHD or diabetic patients with > or = 2 CHD risk factors. LDL-C is now calculated using the Wes calculation, which is a validated novel method providing better accuracy than the Friedewald equation in the estimation of LDL-C. Efrain SS et al. VIVIANA. 2013;310(19): 1422-0811 (http://education.authorSTREAM.com/faq/OKF925) Performed By: #### 1 0231, 7190 #### [facility] [place] [address] [employer] Winder: Cosmo Childers MD Cholesterol.total/Cho lesterol in HDL [Mass ratio] 2.7 {ratio} Normal <5.0 [facility] Comment on above: Performed By: #### 1 023, 0 #### [facility] [place] [address] [employer]ister Winder: Cosmo Childers MD NON HDL CHOLESTEROL 78 mg/dL (calc) Normal <130 [facility] Comment on above: Result Comment: For patients with diabetes plus 1 major ASCVD risk factor, treating to a non-HDL-C goal of <100 mg/dL (LDL-C of <70 mg/dL) is considered a therapeutic option. Performed By: #### 1 023, 1170 #### [facility] [place] [address] [employer] Winder: Cosmo Childers MD Triglyceride [Mass/Vol] 91 mg/dL Normal <150 [facility] Comment on above: Performed By: #### 1 0231, 8640 #### [facility] [place] [address] [employer] Winder: Cosmo Childers MD Laboratory - Chemistry and C hemistry - challengeon 04-30-2024 Albumin [Mass/Vol] 4.7 g/dL Normal 3.6 - 5.1 g/dL [facility], [facility]. Albumin/Globulin [Mass ratio] 2.0 {ratio} Normal 1.0 - 2.5 [facility], [facility]. ALP [Catalytic activity/Vol] 103 U/L Normal 37 - 153 U/L [facility], [facility].; [facility], [facility]. ALT [Catalytic activity/Vol] 31 U/L Abnormal 6 - 29 U/L [facility], [facility]. AST [Catalytic activity/Vol] 25 U/L Normal 10 - 35 U/L [facility], [facility].; [facility], [facility]. Bilirubin [Mass/Vol] 0.6 mg/dL Normal 0.2 - 1 .2 mg/dL [facility], [facility].; [facility], [facility]. Calcium [Mass/Vol] 9.8 mg/dL Normal 8.6 - 10. 4 mg/dL [facility], [facility].; [facility], [facility]. Chloride [Moles/Vol] 103 mmol/L Normal 98 - 11 0 mmol/L [facility], [facility]. Cholesterol [Mass/Vol] 124 mg/dL Normal [facility], [facility].; [facility], [facility]. Cholesterol in HDL [Mass/Vol] 46 mg/dL Abnormal [facility], [facility]. Cholesterol in LDL [Mass/Vol] 61 mg/dL Normal [facility], [facility].; [facility], [facility]. CO2 [Moles/Vol] 29 mmol/L Normal 20 - 32 mmol/L [facility] [facility].; [place] [employer] [facility], [facility]. Creatinine [Mass/Vol] 0.72 mg/dL Normal 0.50 - 1.05 mg/dL [facility], [facility].; [place] [employer] [facility], [facility]. GFR/1.73 sq M.predicted among non-blacks MDRD (S/P/Bld) [Vol rate/Area] 92 mL/min/{1.73_m2} Normal [facility], [facility].; [place] [employer] Glucose [Mass/Vol] 111 mg/dL Abnormal 65 - 99 mg/dL [facility].; [place] [employer] [facility], [facility]. Potassium [Moles/Vol] 4.7 mmol/L Normal 3.5 - 5.3 mmol/L [facility].; [place] [facility] [employer] [facility], [facility]. Protein [Mass/Vol] 7.1 g/dL Normal 6.1 - 8.1 g/dL [facility] [place] [facility], [facility].; [place] [employer]. Sodium [Moles/Vol] 141 mmol/L Normal 135 - 146 mmol/L [facility].; [place] [employer], [facility]. Triglyceride [Mass/Vol] 91 mg/dL Normal [facility].; [place] [employer], [facility]. Urea nitrogen [Mass/Vol] 10 mg/dL Normal 7 - 25 mg/dL [facility].; [place] [employer] [facility], [facility]. No Panel Informationon 04-30 BUN/CREATININE RATIO SEE NOTE: Normal 6 - 22 [facility].; [place] [employer]. CHOL/HDLC RATIO 2.7 Normal [facility].; [place] [employer]. GLOBULIN 2.4 Normal 1.9 - 3.7 [facility].; [place] [employer]. NON HDL CHOLESTEROL 78 Normal [facility].; [place] [employer]. .Auto Diffon 02-06-2024 Basophil, Absolute 0.0 10 3/mcL Normal 0.0-0.3 [facility] ([place] Comment on above: Performed By: #### A CARL, ADIFF, CBC, GFR, BMP, MG #### [address] [address] Basophils/100 WBC (Bld) 0.6 % Normal 0.0-2.5 [facility] ([place] Comment on above: Performed By: #### A CARL, ADIFF, CBC, GFR, BMP, MG #### [address] [address] Eosinophil, Absolute 0.1 10 3/mcL Normal 0.0-0.7 [facility] ([place]) Comment on above: Performed By: #### A CARL, ADIFF, CBC, GFR, BMP, MG #### [address] [address] Eosinophils/100 WBC (Bld) 2.1 % Normal 0.0-6.0 [facility] ([place] Comment on above: Performed By: #### A CARL, ADIFF, CBC, GFR, BMP, MG #### [address] [address] Lymphocyte, Absolute 1.1 10 3/mcL Normal 0.9-4.3 [facility] ([place] Comment on above: Performed By: #### A CARL, ADIFF, CBC, GFR, BMP, MG #### [address] [address] Lymphocytes/100 WBC (Bld) 16.0 % Low 20.0-40.0 [facility] ([place] Comment on above: Performed By: #### A CARL, ADIFF, CBC, GFR, BMP, MG #### [address] [address] Monocyte, Absolute 0.6 10 3/mcL Normal 0.1-1.4 [facility] ([place] Comment on above: Performed By: #### A CARL, ADIFF, CBC, GFR, BMP, MG #### [address] [address] Monocytes/100 WBC (Bld) 8.3 % Normal 2.0-13.0 [facility] ([place] Comment on above: Performed By: #### A CARL, ADIFF, CBC, GFR, BMP, MG #### [address] [address] Neutrophils/100 WBC (Bld) 73.0 % Normal 50.0-75.0 [facility] ([place] Comment on above: Performed By: #### A CARL, ADIFF, CBC, GFR, BMP, MG #### [address] [address] .GFRon 02-06-2024 GFR >60 Normal [facility] ([place] Comment on above: Result Comment: GFR Population mean for , Non- Americans Ages 20-29 = 116 mL/min/1.73 sq.m. Ages 30-39 = 107 mL/min/1.73 sq.m. Ages 40-49 = 99 mL/min/1.73 sq.m. Ages 50-59 = 93 mL/min/1.73 sq.m. Ages 60-69 = 85 mL/min/1.73 sq.m. Ages 70+ = 75 mL/min/1.73 sq.m. Chronic Kidney Disease: Less than 60 mL/min/1.73 square meters End Stage Renal Disease: Less than 15 mL/min/1.73 square meters Performed By: #### A CARL, ADIFF, CBC, GFR, BMP, MG #### [address] [address] GFR Non- >60 Normal [facility] ([place] Comment on above: Result Comment: GFR Population mean for , Non- Americans Ages 20-29 = 116 mL/min/1.73 sq.m. Ages 30-39 = 107 mL/min/1.73 sq.m. Ages 40-49 = 99 mL/min/1.73 sq.m. Ages 50-59 = 93 mL/min/1.73 sq.m. Ages 60-69 = 85 mL/min/1.73 sq.m. Ages 70+ = 75 mL/min/1.73 sq.m. Chronic Kidney Disease: Less than 60 mL/min/1.73 square meters End Stage Renal Disease: Less than 15 mL/min/1.73 square meters Performed By: #### A CARL, ADIFF, CBC, GFR, BMP, MG #### [address] [address] .NEUABSon 02-06-2024 Neutrophil, Absolute 5.1 10 3/mcL Normal 2.3-8.1 [facility] ([place] Comment on above: Performed By: #### A CARL, ADIFF, CBC, GFR, BMP, MG #### [address] [address] APTTon 02-06-2024 aPTT Coag (Bld) [Time] 49.1 s High 25.0-35.0 [facility] ([place] Comment on above: Result Comment: For Heparin anticoagulation therapy, the recommended therapeutic range is: 54-77 seconds (APTT Correlation with Anti-Xa therapeutic range of 0.3-0.7 units/ml). PLEASE REFERENCE THE PHARMACY PROTOCOL FOR DOSING. Performed By: #### A CARL, ADIFF, CBC, GFR, BMP, MG #### [address] [address] Heparin dose (APTT) Heparin IV Normal [facility] ([place] Comment on above: Performed By: #### A CARL, ADIFF, CBC, GFR, BMP, MG #### [address] [address] BMPon 02-06-2024 BUN/Creatinine Ratio 15.6 ratio Normal 10.0-22.0 [facility] ([place] Comment on above: Performed By: #### A CARL, ADIFF, CBC, GFR, BMP, MG #### [place] [address] Calcium [Mass/Vol] 9.0 mg/dL Normal 8.7-10.4 [facility], [facility] ([place] Comment on above: Performed By: #### A CARL, ADIFF, CBC, GFR, BMP, MG #### [place] [address] Chloride [Moles/Vol] 104 mmol/L Normal 98-110 [facility] ([place] Comment on above: Performed By: #### A CARL, ADIFF, CBC, GFR, BMP, MG #### [place] [address] CO2 [Moles/Vol] 28 mmol/L Normal 22-32 [facility] ([place] Comment on above: Performed By: #### A CARL, ADIFF, CBC, GFR, BMP, MG #### [place] [address] Creatinine [Mass/Vol] 0.64 mg/dL Normal 0.50-1.20 [facility] ([place]) Comment on above: Performed By: #### A CARL, ADIFF, CBC, GFR, BMP, MG #### [place] [id number] Electrolyte Balance 6.0 mEq/L Normal 4.0-15.0 [facility] ([place] Comment on above: Performed By: #### A CARL, ADIFF, CBC, GFR, BMP, MG #### [place] [id number] Glucose [Mass/Vol] 175 mg/dL High 82-115 [facility], [facility] ([place] Comment on above: Performed By: #### A CARL, ADIFF, CBC, GFR, BMP, MG #### [place] [id number] Potassium [Moles/Vol] 3.6 mmol/L Normal 3.5-5.0 [facility] ([place] Comment on above: Performed By: #### A CARL, ADIFF, CBC, GFR, BMP, MG #### [place] [id number] Sodium [Moles/Vol] 138 mmol/L Normal 136-145 [facility], [facility] ([place] Comment on above: Performed By: #### A CARL, ADIFF, CBC, GFR, BMP, MG #### [place] [address] Urea nitrogen [Mass/Vol] 10.0 mg/dL Normal 8.0-22.0 [facility] ([place] Comment on above: Performed By: #### A CARL, ADIFF, CBC, GFR, BMP, MG #### [place] [address] CBCon 02-06-2024 Erythrocyte distribution width (RBC) [Ratio] 12.5 % Normal 11.5-15.5 [facility] ([place] Comment on above: Performed By: #### A CARL, ADIFF, CBC, GFR, BMP, MG #### [place] [address] Hematocrit (Bld) [Volume fraction] 37.7 % Normal 34.0-46.0 [facility] ([place] Comment on above: Performed By: #### A CARL, ADIFF, CBC, GFR, BMP, MG #### [place] [address] Hgb 13.2 G/dL Normal 12.0-16.0 [facility] ([place] Comment on above: Performed By: #### A CARL, ADIFF, CBC, GFR, BMP, MG #### [place] [address] MCH (RBC) [Entitic mass] 30.2 pg Normal 27.0-33.0 [facility] ([place] Comment on above: Performed By: #### A CARL, ADIFF, CBC, GFR, BMP, MG #### [place] [address] MCHC 35.1 G/dL Normal 32.0-36.0 [facility] ([place] Comment on above: Performed By: #### A CARL, ADIFF, CBC, GFR, BMP, MG #### [place] [address] MCV (RBC) [Entitic vol] 86.1 fL Normal 80.0-99.0 [facility] ([place] Comment on above: Performed By: #### A CARL, ADIFF, CBC, GFR, BMP, MG #### [place] [address] Platelet 267 10 3/mcL Normal 150-450 [facility] ([place] Comment on above: Performed By: #### A CARL, ADIFF, CBC, GFR, BMP, MG #### [place] [address] Platelet mean volume (Bld) [Entitic vol] 7.4 fL Normal 6.6-10.5 [facility] ([place] Comment on above: Performed By: #### A CARL, ADIFF, CBC, GFR, BMP, MG #### [place] [address] RBC 4.38 10 6/mcL Normal 4.10-5.30 [facility] ([place] Comment on above: Performed By: #### A CARL, ADIFF, CBC, GFR, BMP, MG #### [place] [address] WBC 7.0 10 3/mcL Normal 4.5-10.8 [facility] ([place] Comment on above: Performed By: #### A CARL, ADIFF, CBC, GFR, BMP, MG #### [place] [address] LABORATORYOrdered By: Jonny Tomlin on 02-06-2024 aPTT Coag (Bld) [Time] 49.1 s High 25.0 - 35.0 seconds AH [facility] SS Comment on above: Interpretive Data: F or Heparin anticoagulation therapy, the recommended therapeutic range is: 54-77 seconds (APTT Correlation with Anti-Xa therapeutic range of 0.3-0.7 units/ml). PLEASE REFERENCE THE PHARMACY PROTOCOL FOR DOSING. Heparin dose (APTT) Heparin IV (02/06/24 4:05 AM) Normal AH Coagulation S LABORATORYOrdered By: SYSTEM SYSTEM on 02-06-2024 Basophils (Bld) [#/Vol] 0.0 103/mcL Normal 0.0 - 0.3 10^3/mcL AH Workflow SS Basophils/100 WBC (Bld) 0.6 % Normal 0.0 - 2.5 % AH Workflow SS Calcium [Mass/Vol] 9.0 mg/dL Normal 8.7 - 10. 4 mg/dL AH ADM SS Chloride [Moles/Vol] 104 mmol/L Normal 98 - 11 0 mEq/L AH ADM SS CO2 [Moles/Vol] 28 mmol/L Normal 22 - 32 mEq/L AH ADM SS Creatinine [Mass/Vol] 0.64 mg/dL Normal 0.50 - 1.20 mg/dL AH ADM SS Electrolyte Balance 6.0 mEq/L Normal 4.0 - 15 .0 mEq/L AH ADM SS Eosinophils (Bld) [#/Vol] 0.1 103/mcL Normal 0.0 - 0.7 10^3/mcL AH Workflow SS Eosinophils/100 WBC (Bld) 2.1 % Normal 0.0 - 6.0 % AH Workflow SS Erythrocyte distribution width (RBC) [Ratio] 12.5 % Normal 11.5 - 15.5 % AH Workflow SS GFR/1.73 sq M.predicted among blacks MDRD (S/P/Bld) [Vol rate/Area] ml/min/1.73sqm Invalid Interpretation Code AH ADM SS Comment on above: Interpretive Data: GFR Population mean for , Non- Americans Ages 20-29 = 116 mL/min/1.73 sq.m. Ages 30-39 = 107 mL/min/1.73 sq.m. Ages 40-49 = 99 mL/min/1.73 sq.m. Ages 50-59 = 93 mL/min/1.73 sq.m. Ages 60-69 = 85 mL/min/1.73 sq.m. Ages 70+ = 75 mL/min/1.73 sq.m. Chronic Kidney Disease: Less than 60 mL/min/1.73 square meters End Stage Renal Disease: Less than 15 mL/min/1.73 square meters GFR/1.73 sq M.predicted among non-blacks MDRD (S/P/Bld) [Vol rate/Area] ml/min/1.73sqm Invalid Interpretation Code ADM SS Comment on above: Interpretive Data: GFR Population mean for , Non- Americans Ages 20-29 = 116 mL/min/1.73 sq.m. Ages 30-39 = 107 mL/min/1.73 sq.m. Ages 40-49 = 99 mL/min/1.73 sq.m. Ages 50-59 = 93 mL/min/1.73 sq.m. Ages 60-69 = 85 mL/min/1.73 sq.m. Ages 70+ = 75 mL/min/1.73 sq.m. Chronic Kidney Disease: Less than 60 mL/min/1.73 square meters End Stage Renal Disease: Less than 15 mL/min/1.73 square meters Glucose [Mass/Vol] 175 mg/dL High 82 - 115 mg/dL ADM SS Hematocrit (Bld) [Volume fraction] 37.7 % Normal 34.0 - 46.0 % AH Workflow SS Hemoglobin (Bld) [Mass/Vol] 13.2 G/dL Normal 12.0 - 16.0 G/dL AH Workflow SS Lymphocytes (Bld) [#/Vol] 1.1 103/mcL Normal 0.9 - 4.3 10^3/mcL Workflow SS Lymphocytes/100 WBC (Bld) 16.0 % Low 20.0 - 40.0 % Workflow SS Magnesium [Mass/Vol] 1.8 mg/dL Normal 1.6 - 2 .4 mg/dL ADM SS MCH (RBC) [Entitic mass] 30.2 pg Normal 27.0 - 33.0 pg Workflow SS MCHC 35.1 G/dL Normal 32.0 - 36.0 G/dL AH Workflow SS MCV (RBC) [Entitic vol] 86.1 fL Normal 80.0 - 99.0 fL AH Workflow SS Monocytes (Bld) [#/Vol] 0.6 103/mcL Normal 0.1 - 1.4 10^3/mcL AH Workflow SS Monocytes/100 WBC (Bld) 8.3 % Normal 2.0 - 13.0 % AH Workflow SS Neutrophils (Bld) [#/Vol] 5.1 103/mcL Normal 2.3 - 8.1 10^3/mcL AH Workflow SS Neutrophils/100 WBC (Bld) 73.0 % Normal 50.0 - 75.0 % AH Workflow SS Platelet mean volume (Bld) [Entitic vol] 7.4 fL Normal 6.6 - 10.5 fL AH Workflow SS Platelets (Bld) [#/Vol] 267 103/mcL Normal 150 - 450 10^3/mcL AH Workflow SS Potassium [Moles/Vol] 3.6 mmol/L Normal 3.5 - 5.0 mEq/L AH ADM SS RBC (Bld) [#/Vol] 4.38 106/mcL Normal 4.10 - 5.3 0 10^6/mcL AH Workflow SS Sodium [Moles/Vol] 138 mmol/L Normal 136 - 145 mEq/L AH ADM SS Urea nitrogen [Mass/Vol] 10.0 mg/dL Normal 8.0 - 22.0 mg/dL AH ADM SS Urea nitrogen/Creatinine [Mass ratio] 15.6 ratio Normal 10.0 - 22.0 ratio AH ADM SS WBC (Bld) [#/Vol] 7.0 103/mcL Normal 4.5 - 10.8 10^3/mcL AH Workflow SS MGon 02-06-2024 Magnesium [Mass/Vol] 1.8 mg/dL Normal 1.6-2.4 [facility] ([place] Comment on above: Performed By: #### A CARL, ADIFF, CBC, GFR, BMP, MG #### [address] [address] .Auto Diffon 02-05-2024 Basophil, Absolute 0.1 10 3/mcL Normal 0.0-0.3 [facility] ([place] Comment on above: Performed By: #### A CARL, ADIFF, CBC, GFR, BMP, MG #### [address] [address] Basophils/100 WBC (Bld) 0.7 % Normal 0.0-2.5 [facility] ([place] Comment on above: Performed By: #### A CARL, ADIFF, CBC, GFR, BMP, MG #### [address] [address] Eosinophil, Absolute 0.2 10 3/mcL Normal 0.0-0.7 [facility] ([place] Comment on above: Performed By: #### A CARL, ADIFF, CBC, GFR, BMP, MG #### [address] [address] Eosinophils/100 WBC (Bld) 2.4 % Normal 0.0-6.0 [facility] ([place] Comment on above: Performed By: #### A CARL, ADIFF, CBC, GFR, BMP, MG #### [address] [address] Lymphocyte, Absolute 1.7 10 3/mcL Normal 0.9-4.3 [facility] ([place] Comment on above: Performed By: #### A CARL, ADIFF, CBC, GFR, BMP, MG #### [address] [address] Lymphocytes/100 WBC (Bld) 22.8 % Normal 20.0-40.0 [facility] ([place] Comment on above: Performed By: #### A CARL, ADIFF, CBC, GFR, BMP, MG #### [address] [address] Monocyte, Absolute 0.7 10 3/mcL Normal 0.1-1.4 [facility] ([place] Comment on above: Performed By: #### A CARL, ADIFF, CBC, GFR, BMP, MG #### [address] [address] Monocytes/100 WBC (Bld) 9.4 % Normal 2.0-13.0 [facility] ([place] Comment on above: Performed By: #### A CARL, ADIFF, CBC, GFR, BMP, MG #### [address] [address] Neutrophils/100 WBC (Bld) 64.7 % Normal 50.0-75.0 [facility] ([place] Comment on above: Performed By: #### A CARL, ADIFF, CBC, GFR, BMP, MG #### [address] [address] .GFRon 02-05-2024 GFR Non- >60 Normal [facility] ([place] Comment on above: Result Comment: GFR Population mean for , Non- Americans Ages 20-29 = 116 mL/min/1.73 sq.m. Ages 30-39 = 107 mL/min/1.73 sq.m. Ages 40-49 = 99 mL/min/1.73 sq.m. Ages 50-59 = 93 mL/min/1.73 sq.m. Ages 60-69 = 85 mL/min/1.73 sq.m. Ages 70+ = 75 mL/min/1.73 sq.m. Chronic Kidney Disease: Less than 60 mL/min/1.73 square meters End Stage Renal Disease: Less than 15 mL/min/1.73 square meters Performed By: #### A CARL, ADIFF, CBC, GFR, BMP, MG #### [address] [address] GFR >60 Normal [facility] ([place] Comment on above: Result Comment: GFR Population mean for , Non- Americans Ages 20-29 = 116 mL/min/1.73 sq.m. Ages 30-39 = 107 mL/min/1.73 sq.m. Ages 40-49 = 99 mL/min/1.73 sq.m. Ages 50-59 = 93 mL/min/1.73 sq.m. Ages 60-69 = 85 mL/min/1.73 sq.m. Ages 70+ = 75 mL/min/1.73 sq.m. Chronic Kidney Disease: Less than 60 mL/min/1.73 square meters End Stage Renal Disease: Less than 15 mL/min/1.73 square meters Performed By: #### A CARL, ADIFF, CBC, GFR, BMP, MG #### [address] [address] .NEUABSon 02-05-2024 Neutrophil, Absolute 4.8 10 3/mcL Normal 2.3-8.1 [facility] ([place] Comment on above: Performed By: #### A CARL, ADIFF, CBC, GFR, BMP, MG #### [address] [address] APTTon 02-05-2024 aPTT Coag (Bld) [Time] 51.6 s High 25.0-35.0 [facility] ([place] Comment on above: Result Comment: For Heparin anticoagulation therapy, the recommended therapeutic range is: 54-77 seconds (APTT Correlation with Anti-Xa therapeutic range of 0.3-0.7 units/ml). PLEASE REFERENCE THE PHARMACY PROTOCOL FOR DOSING. Heparin dose (APTT) Heparin IV Normal [facility] ([place]) aPTT Coag (Bld) [Time] 57.0 s High 25.0-35.0 [facility] ([place] Comment on above: Result Comment: For Heparin anticoagulation therapy, the recommended therapeutic range is: 54-77 seconds (APTT Correlation with Anti-Xa therapeutic range of 0.3-0.7 units/ml). PLEASE REFERENCE THE PHARMACY PROTOCOL FOR DOSING. Heparin dose (APTT) Heparin IV Normal [facility] ([place]) BMPon 02-05-2024 BUN/Creatinine Ratio 20.6 ratio Normal 10.0-22.0 [facility] ([place] Comment on above: Performed By: #### A CARL, ADIFF, CBC, GFR, BMP, MG #### [address] [address] Calcium [Mass/Vol] 9.1 mg/dL Normal 8.7-10.4 [facility] ([place] Comment on above: Performed By: #### A CARL, ADIFF, CBC, GFR, BMP, MG #### [address] [address] Chloride [Moles/Vol] 107 mmol/L Normal 98-110 [facility] ([place] Comment on above: Performed By: #### A CARL, ADIFF, CBC, GFR, BMP, MG #### [address] [address] CO2 [Moles/Vol] 18 mmol/L Low 22-32 [facility] ([place] Comment on above: Performed By: #### A CARL, ADIFF, CBC, GFR, BMP, MG #### [place] [id number] Creatinine [Mass/Vol] 0.68 mg/dL Normal 0.50-1.20 [facility] ([place] Comment on above: Performed By: #### A CARL, ADIFF, CBC, GFR, BMP, MG #### [place] [id number] Electrolyte Balance 15.0 mEq/L Normal 4.0-15.0 [facility] ([place] Comment on above: Performed By: #### A CARL, ADIFF, CBC, GFR, BMP, MG #### [place] [address] Glucose [Mass/Vol] 121 mg/dL High 82-115 [facility] ([place] Comment on above: Performed By: #### A CARL, ADIFF, CBC, GFR, BMP, MG #### [place] [address] Potassium [Moles/Vol] 4.2 mmol/L Normal 3.5-5.0 [facility] ([place] Comment on above: Performed By: #### A CARL, ADIFF, CBC, GFR, BMP, MG #### [place] [id number] Sodium [Moles/Vol] 140 mmol/L Normal 136-145 [facility] ([place] Comment on above: Performed By: #### A CARL, ADIFF, CBC, GFR, BMP, MG #### [place] [address] Urea nitrogen [Mass/Vol] 14.0 mg/dL Normal 8.0-22.0 [facility] ([place] Comment on above: Performed By: #### A CARL, ADIFF, CBC, GFR, BMP, MG #### [address] [address] CBCon 02-05-2024 Erythrocyte distribution width (RBC) [Ratio] 12.1 % Normal 11.5-15.5 [facility] ([place] Comment on above: Performed By: #### A CARL, ADIFF, CBC, GFR, BMP, MG #### [place] [address] Hematocrit (Bld) [Volume fraction] 40.4 % Normal 34.0-46.0 [facility] ([place] Comment on above: Performed By: #### A CARL, ADIFF, CBC, GFR, BMP, MG #### [place] [address] Hgb 14.0 G/dL Normal 12.0-16.0 [facility] ([place] Comment on above: Performed By: #### A CARL, ADIFF, CBC, GFR, BMP, MG #### [place] [address] MCH (RBC) [Entitic mass] 29.7 pg Normal 27.0-33.0 [facility] ([place] Comment on above: Performed By: #### A CARL, ADIFF, CBC, GFR, BMP, MG #### [place] [address] MCHC 34.6 G/dL Normal 32.0-36.0 [facility] ([place] Comment on above: Performed By: #### A CARL, ADIFF, CBC, GFR, BMP, MG #### [place] [address] MCV (RBC) [Entitic vol] 85.7 fL Normal 80.0-99.0 [facility] ([place] Comment on above: Performed By: #### A CARL, ADIFF, CBC, GFR, BMP, MG #### [place] [address] Platelet 277 10 3/mcL Normal 150-450 [facility] ([place] Comment on above: Performed By: #### A CARL, ADIFF, CBC, GFR, BMP, MG #### [place] [address] Platelet mean volume (Bld) [Entitic vol] 7.2 fL Normal 6.6-10.5 [facility] ([place]) Comment on above: Performed By: #### A CARL, ADIFF, CBC, GFR, BMP, MG #### [address] [address] RBC 4.71 10 6/mcL Normal 4.10-5.30 [facility] ([place] Comment on above: Performed By: #### A CARL, ADIFF, CBC, GFR, BMP, MG #### [address] [address] WBC 7.4 10 3/mcL Normal 4.5-10.8 [facility] ([place] Comment on above: Performed By: #### A CARL, ADIFF, CBC, GFR, BMP, MG #### [address] [address] LABORATORYOrdered By: Patsy Rowley on 02-05-2024 aPTT Coag (Bld) [Time] 51.6 s High 25.0 - 35.0 seconds [facility] SS Comment on above: Interpretive Data: F or Heparin anticoagulation therapy, the recommended therapeutic range is: 54-77 seconds (APTT Correlation with Anti-Xa therapeutic range of 0.3-0.7 units/ml). PLEASE REFERENCE THE PHARMACY PROTOCOL FOR DOSING. Heparin dose (APTT) Heparin IV (02/05/24 8:24 AM) Normal AH Coagulation S LABORATORYOrdered By: Jessica Lowery on 02-05-2024 aPTT Coag (Bld) [Time] 57.0 s High 25.0 - 35.0 seconds [facility] SS Comment on above: Interpretive Data: F or Heparin anticoagulation therapy, the recommended therapeutic range is: 54-77 seconds (APTT Correlation with Anti-Xa therapeutic range of 0.3-0.7 units/ml). PLEASE REFERENCE THE PHARMACY PROTOCOL FOR DOSING. Heparin dose (APTT) Heparin IV (02/05/24 2:22 AM) Normal AH Coagulation S LABORATORYOrdered By: SYSTEM SYSTEM on 02-05-2024 Basophils (Bld) [#/Vol] 0.1 103/mcL Normal 0.0 - 0.3 10^3/mcL AH Workflow SS Basophils/100 WBC (Bld) 0.7 % Normal 0.0 - 2.5 % AH Workflow SS Calcium [Mass/Vol] 9.1 mg/dL Normal 8.7 - 10. 4 mg/dL AH ADM SS Chloride [Moles/Vol] 107 mmol/L Normal 98 - 11 0 mEq/L AH ADM SS CO2 [Moles/Vol] 18 mmol/L Low 22 - 32 mEq/L AH ADM SS Creatinine [Mass/Vol] 0.68 mg/dL Normal 0.50 - 1.20 mg/dL AH ADM SS Electrolyte Balance 15.0 mEq/L Normal 4.0 - 15 .0 mEq/L ADM SS Eosinophils (Bld) [#/Vol] 0.2 103/mcL Normal 0.0 - 0.7 10^3/mcL Workflow SS Eosinophils/100 WBC (Bld) 2.4 % Normal 0.0 - 6.0 % Workflow SS Erythrocyte distribution width (RBC) [Ratio] 12.1 % Normal 11.5 - 15.5 % Workflow SS GFR/1.73 sq M.predicted among blacks MDRD (S/P/Bld) [Vol rate/Area] ml/min/1.73sqm Invalid Interpretation Code ADM SS Comment on above: Interpretive Data: GFR Population mean for , Non- Americans Ages 20-29 = 116 mL/min/1.73 sq.m. Ages 30-39 = 107 mL/min/1.73 sq.m. Ages 40-49 = 99 mL/min/1.73 sq.m. Ages 50-59 = 93 mL/min/1.73 sq.m. Ages 60-69 = 85 mL/min/1.73 sq.m. Ages 70+ = 75 mL/min/1.73 sq.m. Chronic Kidney Disease: Less than 60 mL/min/1.73 square meters End Stage Renal Disease: Less than 15 mL/min/1.73 square meters GFR/1.73 sq M.predicted among non-blacks MDRD (S/P/Bld) [Vol rate/Area] ml/min/1.73sqm Invalid Interpretation Code AH ADM SS Comment on above: Interpretive Data: GFR Population mean for , Non- Americans Ages 20-29 = 116 mL/min/1.73 sq.m. Ages 30-39 = 107 mL/min/1.73 sq.m. Ages 40-49 = 99 mL/min/1.73 sq.m. Ages 50-59 = 93 mL/min/1.73 sq.m. Ages 60-69 = 85 mL/min/1.73 sq.m. Ages 70+ = 75 mL/min/1.73 sq.m. Chronic Kidney Disease: Less than 60 mL/min/1.73 square meters End Stage Renal Disease: Less than 15 mL/min/1.73 square meters Glucose [Mass/Vol] 121 mg/dL High 82 - 115 mg/dL AH ADM SS Hematocrit (Bld) [Volume fraction] 40.4 % Normal 34.0 - 46.0 % AH Workflow SS Hemoglobin (Bld) [Mass/Vol] 14.0 G/dL Normal 12.0 - 16.0 G/dL AH Workflow SS Lymphocytes (Bld) [#/Vol] 1.7 103/mcL Normal 0.9 - 4.3 10^3/mcL AH Workflow SS Lymphocytes/100 WBC (Bld) 22.8 % Normal 20.0 - 40.0 % AH Workflow SS Magnesium [Mass/Vol] 2.0 mg/dL Normal 1.6 - 2 .4 mg/dL AH ADM SS MCH (RBC) [Entitic mass] 29.7 pg Normal 27.0 - 33.0 pg AH Workflow SS MCHC 34.6 G/dL Normal 32.0 - 36.0 G/dL AH Workflow SS MCV (RBC) [Entitic vol] 85.7 fL Normal 80.0 - 99.0 fL AH Workflow SS Monocytes (Bld) [#/Vol] 0.7 103/mcL Normal 0.1 - 1.4 10^3/mcL AH Workflow SS Monocytes/100 WBC (Bld) 9.4 % Normal 2.0 - 13.0 % AH Workflow SS Neutrophils (Bld) [#/Vol] 4.8 103/mcL Normal 2.3 - 8.1 10^3/mcL AH Workflow SS Neutrophils/100 WBC (Bld) 64.7 % Normal 50.0 - 75.0 % AH Workflow SS Platelet mean volume (Bld) [Entitic vol] 7.2 fL Normal 6.6 - 10.5 fL AH Workflow SS Platelets (Bld) [#/Vol] 277 103/mcL Normal 150 - 450 10^3/mcL AH Workflow SS Potassium [Moles/Vol] 4.2 mmol/L Normal 3.5 - 5.0 mEq/L AH ADM SS RBC (Bld) [#/Vol] 4.71 106/mcL Normal 4.10 - 5.3 0 10^6/mcL AH Workflow SS Sodium [Moles/Vol] 140 mmol/L Normal 136 - 145 mEq/L AH ADM SS Urea nitrogen [Mass/Vol] 14.0 mg/dL Normal 8.0 - 22.0 mg/dL AH ADM SS Urea nitrogen/Creatinine [Mass ratio] 20.6 ratio Normal 10.0 - 22.0 ratio AH ADM SS WBC (Bld) [#/Vol] 7.4 103/mcL Normal 4.5 - 10.8 10^3/mcL Workflow SS MGon 02-05-2024 Magnesium [Mass/Vol] 2.0 mg/dL Normal 1.6-2.4 [facility] ([place] Comment on above: Performed By: #### A CARL, ADIFF, CBC, GFR, BMP, MG #### [address] [address] .Auto Diffon 02-04-2024 Basophil, Absolute 0.1 10 3/mcL Normal 0.0-0.3 [facility] ([place] Comment on above: Performed By: #### B MP, CBC, ANEU, GFR, A1C, MG, ADIFF, LIPID #### [address] [address] Basophils/100 WBC (Bld) 0.7 % Normal 0.0-2.5 [facility] ([place]) Comment on above: Performed By: #### B MP, CBC, ANEU, GFR, A1C, MG, ADIFF, LIPID #### [address] [address] Eosinophil, Absolute 0.2 10 3/mcL Normal 0.0-0.7 [facility] ([place]) Comment on above: Performed By: #### B MP, CBC, ANEU, GFR, A1C, MG, ADIFF, LIPID #### [address] [address] Eosinophils/100 WBC (Bld) 2.5 % Normal 0.0-6.0 [facility] ([place] Comment on above: Performed By: #### B MP, CBC, ANEU, GFR, A1C, MG, ADIFF, LIPID #### [address] [address] Lymphocyte, Absolute 1.9 10 3/mcL Normal 0.9-4.3 [facility] ([place] Comment on above: Performed By: #### B MP, CBC, ANEU, GFR, A1C, MG, ADIFF, LIPID #### [address] [address] Lymphocytes/100 WBC (Bld) 22.7 % Normal 20.0-40.0 [facility] ([place] Comment on above: Performed By: #### B MP, CBC, ANEU, GFR, A1C, MG, ADIFF, LIPID #### [address] [address] Monocyte, Absolute 0.6 10 3/mcL Normal 0.1-1.4 [facility] ([place] Comment on above: Performed By: #### B MP, CBC, ANEU, GFR, A1C, MG, ADIFF, LIPID #### [address] [address] Monocytes/100 WBC (Bld) 7.5 % Normal 2.0-13.0 [facility] ([place] Comment on above: Performed By: #### B MP, CBC, ANEU, GFR, A1C, MG, ADIFF, LIPID #### [address] [address] Neutrophils/100 WBC (Bld) 66.6 % Normal 50.0-75.0 [facility] ([place] Comment on above: Performed By: #### B MP, CBC, ANEU, GFR, A1C, MG, ADIFF, LIPID #### [address] [address] .GFRon 02-04-2024 GFR Non- >60 Normal [facility] ([place] Comment on above: Result Comment: GFR Population mean for , Non- Americans Ages 20-29 = 116 mL/min/1.73 sq.m. Ages 30-39 = 107 mL/min/1.73 sq.m. Ages 40-49 = 99 mL/min/1.73 sq.m. Ages 50-59 = 93 mL/min/1.73 sq.m. Ages 60-69 = 85 mL/min/1.73 sq.m. Ages 70+ = 75 mL/min/1.73 sq.m. Chronic Kidney Disease: Less than 60 mL/min/1.73 square meters End Stage Renal Disease: Less than 15 mL/min/1.73 square meters Performed By: #### T HARI #### [address] [address] GFR >60 Normal [facility] ([place] Comment on above: Result Comment: GFR Population mean for , Non- Americans Ages 20-29 = 116 mL/min/1.73 sq.m. Ages 30-39 = 107 mL/min/1.73 sq.m. Ages 40-49 = 99 mL/min/1.73 sq.m. Ages 50-59 = 93 mL/min/1.73 sq.m. Ages 60-69 = 85 mL/min/1.73 sq.m. Ages 70+ = 75 mL/min/1.73 sq.m. Chronic Kidney Disease: Less than 60 mL/min/1.73 square meters End Stage Renal Disease: Less than 15 mL/min/1.73 square meters Performed By: #### T HARI #### [address] [address] .NEUABSon 02-04-2024 Neutrophil, Absolute 5.4 10 3/mcL Normal 2.3-8.1 [facility] ([place] Comment on above: Performed By: #### T HARI #### [address] [address] A1Con 02-04-2024 HbA1c (Bld) [Mass fraction] 5.4 % Normal 4.0-6.0 [facility] ([place] Comment on above: Performed By: #### T HARI #### [address] [address] APTTon 02-04-2024 aPTT Coag (Bld) [Time] 62.9 s High 25.0-35.0 [facility] ([place] Comment on above: Result Comment: For Heparin anticoagulation therapy, the recommended therapeutic range is: 54-77 seconds (APTT Correlation with Anti-Xa therapeutic range of 0.3-0.7 units/ml). PLEASE REFERENCE THE PHARMACY PROTOCOL FOR DOSING. Heparin dose (APTT) Heparin IV Normal [facility] ([place] aPTT Coag (Bld) [Time] 66.8 s High 25.0-35.0 [facility] ([place] Comment on above: Result Comment: For Heparin anticoagulation therapy, the recommended therapeutic range is: 54-77 seconds (APTT Correlation with Anti-Xa therapeutic range of 0.3-0.7 units/ml). PLEASE REFERENCE THE PHARMACY PROTOCOL FOR DOSING. Heparin dose (APTT) Heparin IV Normal [facility] ([place]) BMPon 02-04-2024 BUN/Creatinine Ratio 16.9 ratio Normal 10.0-22.0 [facility] ([place] Comment on above: Performed By: #### T HARI #### [address] [address] Calcium [Mass/Vol] 9.2 mg/dL Normal 8.7-10.4 [facility] ([place] Comment on above: Performed By: #### T HARI #### [address] [address] Chloride [Moles/Vol] 105 mmol/L Normal 98-110 [facility] ([place] Comment on above: Performed By: #### T HARI #### [address] [address] CO2 [Moles/Vol] 27 mmol/L Normal 22-32 [facility] ([place] Comment on above: Performed By: #### T HARI #### [address] [address] Creatinine [Mass/Vol] 0.65 mg/dL Normal 0.50-1.20 [facility] ([place]) Comment on above: Performed By: #### T HARI #### [address] [address] Electrolyte Balance 5.0 mEq/L Normal 4.0-15.0 [facility] ([place] Comment on above: Performed By: #### T HARI #### [address] [address] Glucose [Mass/Vol] 117 mg/dL High 82-115 [facility] ([place] Comment on above: Performed By: #### T HARI #### [address] [address] Potassium [Moles/Vol] 3.7 mmol/L Normal 3.5-5.0 [facility] ([place] Comment on above: Performed By: #### T HARI #### [address] [address] Sodium [Moles/Vol] 137 mmol/L Normal 136-145 [facility] ([place] Comment on above: Performed By: #### T HARI #### [place] [address] Urea nitrogen [Mass/Vol] 11.0 mg/dL Normal 8.0-22.0 [facility] ([place] Comment on above: Performed By: #### T HARI #### [address] [address] CBCon 02-04-2024 Erythrocyte distribution width (RBC) [Ratio] 12.5 % Normal 11.5-15.5 [facility] ([place] Comment on above: Performed By: #### B MP, CBC, ANEU, GFR, A1C, MG, ADIFF, LIPID #### [address] [address] Hematocrit (Bld) [Volume fraction] 40.7 % Normal 34.0-46.0 [facility] ([place] Comment on above: Performed By: #### B MP, CBC, ANEU, GFR, A1C, MG, ADIFF, LIPID #### [address] [address] Hgb 14.3 G/dL Normal 12.0-16.0 [facility] ([place] Comment on above: Performed By: #### B MP, CBC, ANEU, GFR, A1C, MG, ADIFF, LIPID #### [place] [id number] MCH (RBC) [Entitic mass] 29.8 pg Normal 27.0-33.0 [facility] ([place] Comment on above: Performed By: #### B MP, CBC, ANEU, GFR, A1C, MG, ADIFF, LIPID #### [place] [address] MCHC 35.1 G/dL Normal 32.0-36.0 [facility] ([place] Comment on above: Performed By: #### B MP, CBC, ANEU, GFR, A1C, MG, ADIFF, LIPID #### [place] [address] MCV (RBC) [Entitic vol] 84.9 fL Normal 80.0-99.0 [facility] ([place] Comment on above: Performed By: #### B MP, CBC, ANEU, GFR, A1C, MG, ADIFF, LIPID #### [place] [address] Platelet 267 10 3/mcL Normal 150-450 [facility] ([place]) Comment on above: Performed By: #### B MP, CBC, ANEU, GFR, A1C, MG, ADIFF, LIPID #### [place] [address] Platelet mean volume (Bld) [Entitic vol] 7.6 fL Normal 6.6-10.5 [facility] ([place] Comment on above: Performed By: #### B MP, CBC, ANEU, GFR, A1C, MG, ADIFF, LIPID #### [place] [address] RBC 4.79 10 6/mcL Normal 4.10-5.30 [facility] ([place] Comment on above: Performed By: #### B MP, CBC, ANEU, GFR, A1C, MG, ADIFF, LIPID #### [place] [address] WBC 8.2 10 3/mcL Normal 4.5-10.8 [facility] ([place] Comment on above: Performed By: #### B MP, CBC, ANEU, GFR, A1C, MG, ADIFF, LIPID #### [place] [address] LABORATORYOrdered By: SYSTEM SYSTEM on 02-04-2024 Basophils (Bld) [#/Vol] 0.1 103/mcL Normal 0.0 - 0.3 10^3/mcL AH Workflow SS Basophils/100 WBC (Bld) 0.7 % Normal 0.0 - 2.5 % AH Workflow SS Calcium [Mass/Vol] 9.2 mg/dL Normal 8.7 - 10. 4 mg/dL AH ADM SS Chloride [Moles/Vol] 105 mmol/L Normal 98 - 11 0 mEq/L AH ADM SS CO2 [Moles/Vol] 27 mmol/L Normal 22 - 32 mEq/L AH ADM SS Creatinine [Mass/Vol] 0.65 mg/dL Normal 0.50 - 1.20 mg/dL AH ADM SS Electrolyte Balance 5.0 mEq/L Normal 4.0 - 15 .0 mEq/L AH ADM SS Eosinophils (Bld) [#/Vol] 0.2 103/mcL Normal 0.0 - 0.7 10^3/mcL AH Workflow SS Eosinophils/100 WBC (Bld) 2.5 % Normal 0.0 - 6.0 % AH Workflow SS Erythrocyte distribution width (RBC) [Ratio] 12.5 % Normal 11.5 - 15.5 % AH Workflow SS GFR/1.73 sq M.predicted among blacks MDRD (S/P/Bld) [Vol rate/Area] ml/min/1.73sqm Invalid Interpretation Code ADM SS Comment on above: Interpretive Data: GFR Population mean for , Non- Americans Ages 20-29 = 116 mL/min/1.73 sq.m. Ages 30-39 = 107 mL/min/1.73 sq.m. Ages 40-49 = 99 mL/min/1.73 sq.m. Ages 50-59 = 93 mL/min/1.73 sq.m. Ages 60-69 = 85 mL/min/1.73 sq.m. Ages 70+ = 75 mL/min/1.73 sq.m. Chronic Kidney Disease: Less than 60 mL/min/1.73 square meters End Stage Renal Disease: Less than 15 mL/min/1.73 square meters GFR/1.73 sq M.predicted among non-blacks MDRD (S/P/Bld) [Vol rate/Area] ml/min/1.73sqm Invalid Interpretation Code ADM SS Comment on above: Interpretive Data: GFR Population mean for , Non- Americans Ages 20-29 = 116 mL/min/1.73 sq.m. Ages 30-39 = 107 mL/min/1.73 sq.m. Ages 40-49 = 99 mL/min/1.73 sq.m. Ages 50-59 = 93 mL/min/1.73 sq.m. Ages 60-69 = 85 mL/min/1.73 sq.m. Ages 70+ = 75 mL/min/1.73 sq.m. Chronic Kidney Disease: Less than 60 mL/min/1.73 square meters End Stage Renal Disease: Less than 15 mL/min/1.73 square meters Glucose [Mass/Vol] 117 mg/dL High 82 - 115 mg/dL ADM SS HbA1c (Bld) [Mass fraction] 5.4 % Normal 4.0 - 6.0 % Auto Chem SS Hematocrit (Bld) [Volume fraction] 40.7 % Normal 34.0 - 46.0 % Workflow SS Hemoglobin (Bld) [Mass/Vol] 14.3 G/dL Normal 12.0 - 16.0 G/dL AH Workflow SS Lymphocytes (Bld) [#/Vol] 1.9 103/mcL Normal 0.9 - 4.3 10^3/mcL AH Workflow SS Lymphocytes/100 WBC (Bld) 22.7 % Normal 20.0 - 40.0 % AH Workflow SS Magnesium [Mass/Vol] 2.0 mg/dL Normal 1.6 - 2 .4 mg/dL ADM SS MCH (RBC) [Entitic mass] 29.8 pg Normal 27.0 - 33.0 pg AH Workflow SS MCHC 35.1 G/dL Normal 32.0 - 36.0 G/dL AH Workflow SS MCV (RBC) [Entitic vol] 84.9 fL Normal 80.0 - 99.0 fL AH Workflow SS Monocytes (Bld) [#/Vol] 0.6 103/mcL Normal 0.1 - 1.4 10^3/mcL AH Workflow SS Monocytes/100 WBC (Bld) 7.5 % Normal 2.0 - 13.0 % AH Workflow SS Neutrophils (Bld) [#/Vol] 5.4 103/mcL Normal 2.3 - 8.1 10^3/mcL AH Workflow SS Neutrophils/100 WBC (Bld) 66.6 % Normal 50.0 - 75.0 % AH Workflow SS Platelet mean volume (Bld) [Entitic vol] 7.6 fL Normal 6.6 - 10.5 fL AH Workflow SS Platelets (Bld) [#/Vol] 267 103/mcL Normal 150 - 450 10^3/mcL AH Workflow SS Potassium [Moles/Vol] 3.7 mmol/L Normal 3.5 - 5.0 mEq/L AH ADM SS RBC (Bld) [#/Vol] 4.79 106/mcL Normal 4.10 - 5.3 0 10^6/mcL AH Workflow SS Sodium [Moles/Vol] 137 mmol/L Normal 136 - 145 mEq/L AH ADM SS Urea nitrogen [Mass/Vol] 11.0 mg/dL Normal 8.0 - 22.0 mg/dL AH ADM SS Urea nitrogen/Creatinine [Mass ratio] 16.9 ratio Normal 10.0 - 22.0 ratio AH ADM SS WBC (Bld) [#/Vol] 8.2 103/mcL Normal 4.5 - 10.8 10^3/mcL AH Workflow SS LABORATORYOrdered By: Rosa Bedoya on 02-04-2024 Cholesterol [Mass/Vol] 252 mg/dL High 50 - 199 mg/dL ADM SS Comment on above: Interpretive Data: C holesterol Reference Interval: Less than 200 Desirable 200-239 Borderline high risk 240 and above High risk Cholesterol in HDL [Mass/Vol] 54 mg/dL Normal 40 - 59 mg/dL AH ADM SS Cholesterol in LDL [Mass/Vol] 175 mg/dL High 0 - 129 mg/dL AH ADM SS Triglyceride [Mass/Vol] 114 mg/dL Normal 3 - 149 mg/dL AH ADM SS LIPIDon 02-04-2024 Cholesterol [Mass/Vol] 252 mg/dL High 50-199 [facility] ([place] Comment on above: Result Comment: Chol esterol Reference Interval: Less than 200 Desirable 200-239 Borderline high risk 240 and above High risk Performed By: #### T [facility] #### [place] [address] Cholesterol in HDL [Mass/Vol] 54 mg/dL Normal 40-59 [facility] ([place] Comment on above: Performed By: #### T HARI #### [address] [address] Cholesterol in LDL [Mass/Vol] 175 mg/dL High 0-129 [facility] ([place] Comment on above: Performed By: #### T HARI #### [address] [address] Triglyceride [Mass/Vol] 114 mg/dL Normal 3-149 [facility] ([place] Comment on above: Performed By: #### T HARI #### [address] [address] MGon 02-04-2024 Magnesium [Mass/Vol] 2.0 mg/dL Normal 1.6-2.4 [facility] ([place] Comment on above: Performed By: #### T HARI #### [address] [address] .Auto Diffon 02-03-2024 Basophil, Absolute 0.1 10 3/mcL Normal 0.0-0.3 [facility] ([place] Comment on above: Performed By: #### A CARL, ADIFF, CBC, GFR, BMP, MG #### [address] [address] Basophils/100 WBC (Bld) 1.0 % Normal 0.0-2.5 [facility] ([place] Comment on above: Performed By: #### A CARL, ADIFF, CBC, GFR, BMP, MG #### [address] [address] Eosinophil, Absolute 0.1 10 3/mcL Normal 0.0-0.7 [facility] ([place] Comment on above: Performed By: #### A CARL, ADIFF, CBC, GFR, BMP, MG #### [address] [address] Eosinophils/100 WBC (Bld) 1.8 % Normal 0.0-6.0 [facility] ([place] Comment on above: Performed By: #### A CARL, ADIFF, CBC, GFR, BMP, MG #### [address] [address] Lymphocyte, Absolute 2.0 10 3/mcL Normal 0.9-4.3 [facility] ([place] Comment on above: Performed By: #### A CARL, ADIFF, CBC, GFR, BMP, MG #### [address] [address] Lymphocytes/100 WBC (Bld) 25.6 % Normal 20.0-40.0 [facility] ([place] Comment on above: Performed By: #### A CARL, ADIFF, CBC, GFR, BMP, MG #### [address] [address] Monocyte, Absolute 0.6 10 3/mcL Normal 0.1-1.4 [facility] ([place] Comment on above: Performed By: #### A CARL, ADIFF, CBC, GFR, BMP, MG #### [address] [address] Monocytes/100 WBC (Bld) 7.6 % Normal 2.0-13.0 [facility] ([place] Comment on above: Performed By: #### A CARL, ADIFF, CBC, GFR, BMP, MG #### [address] [address] Neutrophils/100 WBC (Bld) 64.0 % Normal 50.0-75.0 [facility] ([place] Comment on above: Performed By: #### A CARL, ADIFF, CBC, GFR, BMP, MG #### [address] [address] .GFRon 02-03-2024 GFR >60 Normal [facility] ([place] Comment on above: Result Comment: GFR Population mean for , Non- Americans Ages 20-29 = 116 mL/min/1.73 sq.m. Ages 30-39 = 107 mL/min/1.73 sq.m. Ages 40-49 = 99 mL/min/1.73 sq.m. Ages 50-59 = 93 mL/min/1.73 sq.m. Ages 60-69 = 85 mL/min/1.73 sq.m. Ages 70+ = 75 mL/min/1.73 sq.m. Chronic Kidney Disease: Less than 60 mL/min/1.73 square meters End Stage Renal Disease: Less than 15 mL/min/1.73 square meters Performed By: #### T TOMI #### [address] [address] GFR Non- >60 Normal [facility] ([place] Comment on above: Result Comment: GFR Population mean for , Non- Americans Ages 20-29 = 116 mL/min/1.73 sq.m. Ages 30-39 = 107 mL/min/1.73 sq.m. Ages 40-49 = 99 mL/min/1.73 sq.m. Ages 50-59 = 93 mL/min/1.73 sq.m. Ages 60-69 = 85 mL/min/1.73 sq.m. Ages 70+ = 75 mL/min/1.73 sq.m. Chronic Kidney Disease: Less than 60 mL/min/1.73 square meters End Stage Renal Disease: Less than 15 mL/min/1.73 square meters Performed By: #### T [facility] #### [address] [address] .NEUABSon 02-03-2024 Neutrophil, Absolute 5.1 10 3/mcL Normal 2.3-8.1 [facility] ([place] Comment on above: Performed By: #### A CARL, ADIFF, CBC, GFR, BMP, MG #### [address] [address] APTTon 02-03-2024 aPTT Coag (Bld) [Time] 53.1 s High 25.0-35.0 [facility] ([place] Comment on above: Result Comment: For Heparin anticoagulation therapy, the recommended therapeutic range is: 54-77 seconds (APTT Correlation with Anti-Xa therapeutic range of 0.3-0.7 units/ml). PLEASE REFERENCE THE PHARMACY PROTOCOL FOR DOSING. Heparin dose (APTT) Heparin IV Normal [facility] ([place]) aPTT Coag (Bld) [Time] 35.8 s High 25.0-35.0 [facility] ([place] Comment on above: Result Comment: For Heparin anticoagulation therapy, the recommended therapeutic range is: 54-77 seconds (APTT Correlation with Anti-Xa therapeutic range of 0.3-0.7 units/ml). PLEASE REFERENCE THE PHARMACY PROTOCOL FOR DOSING. Performed By: #### A CARL, ADIFF, CBC, GFR, BMP, MG #### [place] [id number] Heparin dose (APTT) Heparin IV Normal [facility] ([place] Comment on above: Performed By: #### A CARL, ADIFF, CBC, GFR, BMP, MG #### [address] [address] CBCon 02-03-2024 Erythrocyte distribution width (RBC) [Ratio] 12.4 % Normal 11.5-15.5 [facility] ([place] Comment on above: Performed By: #### T HARI #### [place] [address] Hematocrit (Bld) [Volume fraction] 42.3 % Normal 34.0-46.0 [facility] ([place] Comment on above: Performed By: #### T HARI #### [place] [id number] Hgb 14.6 G/dL Normal 12.0-16.0 [facility] ([place] Comment on above: Performed By: #### T HARI #### [place] [address] MCH (RBC) [Entitic mass] 29.8 pg Normal 27.0-33.0 [facility] ([place] Comment on above: Performed By: #### T HARI #### [place] [id number] MCHC 34.6 G/dL Normal 32.0-36.0 [facility] ([place] Comment on above: Performed By: #### T HARI #### [place] [id number] MCV (RBC) [Entitic vol] 86.1 fL Normal 80.0-99.0 [facility] ([place] Comment on above: Performed By: #### T HARI #### [place] [id number] Platelet 303 10 3/mcL Normal 150-450 [facility] ([place] Comment on above: Performed By: #### T HARI #### [place] [id number] Platelet mean volume (Bld) [Entitic vol] 7.3 fL Normal 6.6-10.5 [facility] ([place] Comment on above: Performed By: #### T HARI #### [place] [id number] RBC 4.91 10 6/mcL Normal 4.10-5.30 [facility] ([place] Comment on above: Performed By: #### T HARI #### [place] [id number] WBC 8.0 10 3/mcL Normal 4.5-10.8 [facility] ([place] Comment on above: Performed By: #### T HARI #### [place] [address] CMPon 02-03-2024 Albumin Level 4.0 G/dL Normal 3.2-4.8 [facility] ([place] Comment on above: Performed By: #### T HARI #### [place] [id number] ALT [Catalytic activity/Vol] 17 U/L Normal 10-49 [facility] ([place] Comment on above: Performed By: #### T HARI #### [place] [address] Bili Total 0.60 mg/dL Normal 0.20-1.20 [facility] ([place] Comment on above: Result Comment: Use of this assay is not recommended for patients undergoing treatment with eltrombopag due to the potential for falsely elevated results. Performed By: #### T HARI #### [place] [id number] BUN/Creatinine Ratio 15.1 ratio Normal 10.0-22.0 [facility] ([place] Comment on above: Performed By: #### T HARI #### [address] [address] Calcium [Mass/Vol] 9.3 mg/dL Normal 8.7-10.4 [facility] ([place] Comment on above: Performed By: #### T HARI #### [address] [address] Chloride [Moles/Vol] 103 mmol/L Normal 98-110 [facility] ([place] Comment on above: Performed By: #### T HARI #### [address] [address] CO2 [Moles/Vol] 31 mmol/L Normal 22-32 [facility] ([place] Comment on above: Performed By: #### T HARI #### [address] [address] Creatinine [Mass/Vol] 0.73 mg/dL Normal 0.50-1.20 [facility] ([place] Comment on above: Performed By: #### T HARI #### [address] [address] Electrolyte Balance 0.0 mEq/L Low 4.0-15.0 [facility] ([place] Comment on above: Performed By: #### T HARI #### [address] [address] Glucose [Mass/Vol] 130 mg/dL High 82-115 [facility] ([place] Comment on above: Performed By: #### T HARI #### [address] [address] Potassium [Moles/Vol] 4.0 mmol/L Normal 3.5-5.0 [facility] ([place] Comment on above: Performed By: #### T HARI #### [address] [address] Sodium [Moles/Vol] 134 mmol/L Low 136-145 [facility] ([place] Comment on above: Performed By: #### T HARI #### [place] [id number] Total Protein 7.3 G/dL Normal 5.7-8.2 [facility] ([place] Comment on above: Result Comment: No te - New Reference Range in effect 20 Performed By: #### T HARI #### [place] [address] Urea nitrogen [Mass/Vol] 11.0 mg/dL Normal 8.0-22.0 [facility] ([place] Comment on above: Performed By: #### T HARI #### [place] [address] CMPOrdered By: SYSTEM SYSTEM on 02-03-2024 Albumin/Globulin [Mass ratio] 1.2 {ratio} Normal 0.9-1.6 AH ADM SS Comment on above: Performed By: #### T HARI #### [place] [address] ALP [Catalytic activity/Vol] 76 U/L Normal 38-126 AH ADM SS Comment on above: Performed By: #### T HARI #### [place] [address] AST [Catalytic activity/Vol] 51 U/L High 8-34 AH ADM SS Comment on above: Performed By: #### T HARI #### [place] [address] Globulin 3.3 G/dL Normal 1.5-3.8 AH ADM SS Comment on above: Performed By: #### T HARI #### [place] [address] LABORATORYOrdered By: Rachel Glass on 02-03-2024 Appearance (U) Clear (02/03/24 6:47 PM) Normal Clear AH Auto Urine SS Bilirubin Ql (U) Negative (02/03/24 6:47 PM) Normal Neg-Trace AH Auto Urine SS Color (U) Yellow (02/03/24 6:47 PM) Normal AH Auto Urine SS Glucose Test strip (U) [Mass/Vol] Negative Normal Negative AH Auto Urine SS Hemoglobin Auto test strip (U) [Mass/Vol] Negative (02/03/24 6:47 PM) Normal Neg-Trace AH Auto Urine SS Ketones Ql (U) 15 mg/dL Invalid Interpretation Code Neg-Trace AH Auto Urine SS UA Leuk Est Negative (02/03/24 6:47 PM) Normal Negative AH Auto Urine SS UA Nitrite Negative (02/03/24 6:47 PM) Normal Negative AH Auto Urine SS UA pH 8.0 (02/03/24 6:47 PM) Normal 5.0 - 8.0 AH Auto Urine SS UA Protein Negative Normal Negative AH Auto Urine SS UA Spec Grav 1.010 (02/03/24 6:47 PM) Normal 1.006-1.029 AH Auto Urine SS UA Specimen Type Not Given (02/03/24 6:47 PM) Normal Auto Urine SS UA Urobilinogen 0.2 E.U./dL Normal 0.2-1.0 AH Auto Urine SS LABORATORYOrdered By: SYSTEM SYSTEM on 02-03-2024 Albumin BCP dye [Mass/Vol] 4.0 G/dL Normal 3.2 - 4.8 G/dL ADM SS ALT No additional P-5'-P [Catalytic activity/Vol] 17 U/L Normal 10 - 49 U/L ADM SS Bilirubin [Mass/Vol] 0.60 mg/dL Normal 0.20 - 1.20 mg/dL ADM Comment on above: Interpretive Data: U se of this assay is not recommended for patients undergoing treatment with eltrombopag due to the potential for falsely elevated results. Protein [Mass/Vol] 7.3 G/dL Normal 5.7 - 8.2 G/dL ADM Comment on above: Interpretive Data: * *Note - New Reference Range in effect 20 Troponin I.cardiac DL <= 0.01 ng/mL [Mass/Vol] 5247 ng/L High 0 - 34 ng/L ADM Comment on above: Interpretive Data: High Sensitive Troponin I Reference Ranges: Female: 0-34 ng/L Male: 0-54 ng/L Testing performed on [facility] IM analyzer using direct chemiluminescent technology. Troponin I.cardiac DL <= 0.01 ng/mL [Mass/Vol] 4493 ng/L High 0 - 34 ng/L ADM Comment on above: Interpretive Data: High Sensitive Troponin I Reference Ranges: Female: 0-34 ng/L Male: 0-54 ng/L Testing performed on [employer] IM analyzer using direct chemiluminescent technology. Troponin I.cardiac DL <= 0.01 ng/mL [Mass/Vol] 5666 ng/L High 0 - 34 ng/L ADM SS Comment on above: Interpretive Data: High Sensitive Troponin I Reference Ranges: Female: 0-34 ng/L Male: 0-54 ng/L Testing performed on [employer] IM analyzer using direct chemiluminescent technology. TSH Qn 1.709 mIU/mL Normal 0.550 - 4.780 mIU/mL ADM SS Comment on above: Interpretive Data: * *Note - New Reference Range in effect 20 LABORATORYOrdered By: Ramone Meeks on 02-03-2024 Natriuretic peptide.B prohormone N-Terminal [Mass/Vol] 2518 pg/mL High 0 - 900 pg/mL Auto Chem SS Comment on above: Interpretive Data: N T-proBNP results of less than 300 pg/mL effectively rules out acute congestive heart failure with 99% negative predictive value. LABORATORYOrdered By: Patsy Rowley on 02-03-2024 PT Coag (PPP) [Time] 13.1 s Normal 9.0 - 1 4.2 seconds [facility] Comment on above: Interpretive Data: E ffective 05/19/08, Protime results may be affected by some antibiotics (i.e. Ciprofloxacin, Azithromycin, Bactrim) which may potentiate the action of oral anticoagulants, with further increases in Protime/INR. PT International Ratio 1.2 ratio Invalid Interpretation Code [facility] Comment on above: Interpretive Data: T katian [employer] [place] [employer] (CHEST, 1991, 102:312S-25S) recommended therapeutic range for oral anticoagulant therapy is: LOW RISK: Prophylaxis of venous thrombosis INR: 2.0-3.0 Treatment of pulmonary embolism 2.0-3.0 Prevention of systemic embolism 2.0-3.0 HIGH RISK: Mechanical prosthetic valves 2.5-3.5 MGon 02-03-2024 Magnesium [Mass/Vol] 2.0 mg/dL Normal 1.6-2.4 [facility] ([place] Comment on above: Performed By: #### A CARL, ADIFF, CBC, GFR, BMP, MG #### [place] [address] PBNPon 02-03-2024 Natriuretic peptide B (Bld) [Mass/Vol] 2518 pg/mL High 0-900 [facility] ([place]) Comment on above: Result Comment: NT-p roBNP results of less than 300 pg/mL effectively rules out acute congestive heart failure with 99% negative predictive value. Performed By: #### A CARL, ADIFF, CBC, GFR, BMP, MG #### [place] [address] PROon 02-03-2024 INR Coag (PPP) [Relative time] 1.2 {INR} Normal [facility] ([place] Comment on above: Result Comment: The [employer] [place] [employer] (CHEST, 1992, 102:312S-25S) recommended therapeutic range for oral anticoagulant therapy is: LOW RISK: Prophylaxis of venous thrombosis INR: 2.0-3.0 Treatment of pulmonary embolism 2.0-3.0 Prevention of systemic embolism 2.0-3.0 HIGH RISK: Mechanical prosthetic valves 2.5-3.5 Performed By: #### A CARL, ADIFF, CBC, GFR, BMP, MG #### [place] [address] PT Coag (PPP) [Time] 13.1 s Normal 9.0-14.2 [facility] ([place] Comment on above: Result Comment: Effe ctive 05/19/08, Protime results may be affected by some antibiotics (i.e. Ciprofloxacin, Azithromycin, Bactrim) which may potentiate the action of oral anticoagulants, with further increases in Protime/INR. Performed By: #### A CARL, ADIFF, CBC, GFR, BMP, MG #### [place] [id number] TROPHSon 02-03-2024 High Sensitivity Troponin I 5247 ng/L High 0-34 [facility] ([place] Comment on above: Result Comment: High Sensitive Troponin I Reference Ranges: Female: 0-34 ng/L Male: 0-54 ng/L Testing performed on [employer] analyzer using direct chemiluminescent technology. Performed By: #### T ROP #### [place] [address] High Sensitivity Troponin I 4493 ng/L High 0-34 [facility] ([place] Comment on above: Result Comment: High Sensitive Troponin I Reference Ranges: Female: 0-34 ng/L Male: 0-54 ng/L Testing performed on [facility] IM analyzer using direct chemiluminescent technology. Performed By: #### T [facility] #### [address] [address] High Sensitivity Troponin I 5666 ng/L High 0-34 [facility] ([place] Comment on above: Result Comment: High Sensitive Troponin I Reference Ranges: Female: 0-34 ng/L Male: 0-54 ng/L Testing performed on [facility] IM analyzer using direct chemiluminescent technology. Performed By: #### A CARL, ADIFF, CBC, GFR, BMP, MG #### [address] [address] TSHon 02-03-2024 TSH 1.709 mIU/mL Normal 0.550-4.780 [facility] ([place]) Comment on above: Result Comment: No te - New Reference Range in effect 20 Performed By: #### A CARL, ADIFF, CBC, GFR, BMP, MG #### [address] [address] UAon 02-03-2024 Color (U) Yellow Normal [facility] ([place] Comment on above: Order Comment: No sp ecimen rec'd 02/03/2024 17:57:25 EDT Performed By: #### A CARL, ADIFF, CBC, GFR, BMP, MG #### [address] [address] Glucose (U) [Mass/Vol] Negative Normal Negative [facility] ([place] Comment on above: Order Comment: No sp ecimen rec'd 02/03/2024 17:57:25 EDT Performed By: #### A CARL, ADIFF, CBC, GFR, BMP, MG #### [address] [address] Ketones Ql (U) 15 mg/dL Abnormal Neg-Trace [facility] ([place]) Comment on above: Order Comment: No sp ecimen rec'd 02/03/2024 17:57:25 EDT Performed By: #### A CARL, ADIFF, CBC, GFR, BMP, MG #### [address] [address] UA Appear Clear Normal Clear [facility] ([place] Comment on above: Order Comment: No sp ecimen rec'd 02/03/2024 17:57:25 EDT Performed By: #### A CARL, ADIFF, CBC, GFR, BMP, MG #### [address] [address] UA Blood Negative Normal Neg-Trace [facility] ([place] Comment on above: Order Comment: No sp ecimen rec'd 02/03/2024 17:57:25 EDT Performed By: #### A CARL, ADIFF, CBC, GFR, BMP, MG #### [address] [address] UA Leuk Est Negative Normal Negative [facility] ([place]) Comment on above: Order Comment: No sp ecimen rec'd 02/03/2024 17:57:25 EDT Performed By: #### A CARL, ADIFF, CBC, GFR, BMP, MG #### [address] [address] UA Nitrite Negative Normal Negative [facility] ([place] Comment on above: Order Comment: No sp ecimen rec'd 02/03/2024 17:57:25 EDT Performed By: #### A CARL, ADIFF, CBC, GFR, BMP, MG #### [address] [address] UA pH 8.0 Normal 5.0 - 8.0 [facility] ([place] Comment on above: Order Comment: No sp ecimen rec'd 02/03/2024 17:57:25 EDT Performed By: #### A CARL, ADIFF, CBC, GFR, BMP, MG #### [address] [address] UA Protein Negative Normal Negative [facility] ([place] Comment on above: Order Comment: No sp ecimen rec'd 02/03/2024 17:57:25 EDT Performed By: #### A CARL, ADIFF, CBC, GFR, BMP, MG #### [address] [address] UA Spec Grav 1.010 Normal 1.006-1.029 [facility] ([place] Comment on above: Order Comment: No sp ecimen rec'd 02/03/2024 17:57:25 EDT Performed By: #### A CARL, ADIFF, CBC, GFR, BMP, MG #### [address] [address] UA Specimen Type Not Given Normal [facility] ([place] Comment on above: Order Comment: No sp ecimen rec'd 02/03/2024 17:57:25 EDT Performed By: #### A CARL, ADIFF, CBC, GFR, BMP, MG #### [address] [address] UA Urobilinogen 0.2 E.U./dL Normal 0.2-1.0 [facility] ([place] Comment on above: Order Comment: No sp ecimen rec'd 02/03/2024 17:57:25 EDT Performed By: #### A CARL, ADIFF, CBC, GFR, BMP, MG #### [address] [address] Urobilinogen (U) [Mass/Vol] Negative Normal Neg-Trace [facility] ([place] Comment on above: Order Comment: No sp ecimen rec'd 02/03/2024 17:57:25 EDT Performed By: #### A CARL, ADIFF, CBC, GFR, BMP, MG #### [address] [address] COMPREHENSIVE METABOLIC PANE [facility] 10-09-2023 Albumin [Mass/Vol] 4.6 g/dL Normal 3.6-5.1 [facility] Comment on above: Performed By: #### 1 0231, 7600 #### [facility] [address], [address] [place] [id number] [employer]: Cosmo Childers MD Albumin/Globulin [Mass ratio] 1.9 {ratio} Normal 1.0-2.5 [facility] Comment on above: Performed By: #### 1 230, 7600 #### [facility] of [place] [address] [employer] W[employer]: Cosmo Childers MD ALP [Catalytic activity/Vol] 70 U/L Normal 37-153 [facility] Comment on above: Performed By: #### 1 230, 7600 #### [facility] of [address], [address] [place] [address] [employer]: Cosmo Childers MD ALT [Catalytic activity/Vol] 13 U/L Normal 6-29 [facility] Comment on above: Performed By: #### 1 230, 7600 #### [facility] [place] [address] [employer]: Cosmo Childers MD AST [Catalytic activity/Vol] 18 U/L Normal 10-35 [facility] Comment on above: Performed By: #### 1 230, 7600 #### [facility] of [address], [address] [place] [address] [employer]: Cosmo Childers MD Bilirubin [Mass/Vol] 0.6 mg/dL Normal 0.2-1.2 [facility] Comment on above: Performed By: #### 1 230, 7600 #### [facility] [place] [address] [employer] W[employer]: Cosmo Childers MD BUN/CREATININE RATIO SEE NOTE: Normal 6-22 [facility] Comment on above: Result Comment: Not Reported: BUN and Creatinine are within reference range. Performed By: #### 1 023, 7600 #### [facility] of [place] [address] [employer]: Cosmo Childers MD Calcium [Mass/Vol] 9.6 mg/dL Normal 8.6-10.4 [facility] Comment on above: Performed By: #### 1 023, 7600 #### [facility] of [address], [address] [place] [address] [employer]: Cosmo Childers MD Chloride [Moles/Vol] 99 mmol/L Normal 98-110 [facility] Comment on above: Performed By: #### 1 0231, 7600 #### [facility] of [address], [address] [place] [address] [employer]: Cosmo Childers MD CO2 [Moles/Vol] 28 mmol/L Normal 20-32 [facility] Comment on above: Performed By: #### 1 023, 7600 #### [facility] of [place] [address] [employer]: Cosmo Childers MD Creatinine [Mass/Vol] 0.81 mg/dL Normal 0.50-1.[address] [facility] Comment on above: Performed By: #### 1 023, 7600 #### [facility] [address], [address] [place] [address] [employer]: Cosmo Childers MD GFR/1.73 sq M.predicted among non-blacks MDRD (S/P/Bld) [Vol rate/Area] 81 mL/min/{1.73_m2} Normal > OR = 60 [facility] Comment on above: Performed By: #### 1 023, 7600 #### [facility] [place] [address] [employer]: Cosmo Childers MD Globulin (S) [Mass/Vol] 2.4 g/dL Normal 1.9-3.7 [facility] Comment on above: Performed By: #### 1 0231, 7600 #### [facility] of [place] [address] [employer] W[employer]: Cosmo Childers MD Glucose [Mass/Vol] 103 mg/dL High 65-99 [facility] Comment on above: Result Comment: Fasting reference interval For someone without known diabetes, a glucose value between 100 and 125 mg/dL is consistent with prediabetes and should be confirmed with a follow-up test. Performed By: #### 1 0231, 7600 #### [facility] of [address], [address] [place] [address] [employer]: Cosmo Childers MD Potassium [Moles/Vol] 4.4 mmol/L Normal 3.5-5.[address] [facility] [address] [facility] Comment on above: Performed By: #### 1 0231, 7600 #### [facility] of [address], [address] [place] [address] [employer]: Cosmo Childers MD Protein [Mass/Vol] 7.0 g/dL Normal 6.1-8.1 [facility] Comment on above: Performed By: #### 1 0231, 7600 #### [facility] of [address], [address] [place] [address] [employer]: Cosmo Childers MD Sodium [Moles/Vol] 136 mmol/L Normal 135-146 [facility] Comment on above: Performed By: #### 1 023, 7600 #### [facility] of [address], [address] [place] [address] [employer]: Cosmo Childers MD Urea nitrogen [Mass/Vol] 14 mg/dL Normal 7-25 [facility] Comment on above: Performed By: #### 1 0231, 7600 #### [facility] of [address], [address] [place] [address] [employer]: Cosmo Childers MD LIPID PANEL, [facility] 12-0 Cholesterol [Mass/Vol] 265 mg/dL High <200 [facility] Comment on above: Performed By: #### 1 0231, 7600 #### [facility] of [address], [address] [place] [address] [employer]: Cosmo Childers MD Cholesterol in HDL [Mass/Vol] 66 mg/dL Normal > OR = 50 [facility] Comment on above: Performed By: #### 1 0231, 7600 #### [facility] of [address], [address] [place] [address] [employer]: Cosmo Childers MD Cholesterol in LDL [Mass/Vol] 176 mg/dL High [facility] Comment on above: Result Comment: Refe rence range: <100 Desirable range <100 mg/dL for primary prevention; <70 mg/dL for patients with CHD or diabetic patients with > or = 2 CHD risk factors. LDL-C is now calculated using the Wes calculation, which is a validated novel method providing better accuracy than the Friedewald equation in the estimation of LDL-C. Efrain SS et al. VIVIANA. 2013;310(19): 2338-3720 (http://education.[employer].Kur[employer]/faq/SUR630) Performed By: #### 1 0231, 3360 #### [facility] [address], [address] [place] [address] [employer]: Cosmo Childers MD Cholesterol.total/Cho lesterol in HDL [Mass ratio] 4.0 {ratio} Normal <5.0 [facility] Comment on above: Performed By: #### 1 023, 0 #### [facility] [address], [address] [place] [address] [employer]: Cosmo Childers MD NON HDL CHOLESTEROL 199 mg/dL (calc) High <130 [facility] Comment on above: Result Comment: For patients with diabetes plus 1 major ASCVD risk factor, treating to a non-HDL-C goal of <100 mg/dL (LDL-C of <70 mg/dL) is considered a therapeutic option. Performed By: #### 1 023, 0 #### [facility] [address], [address] [place] [address] [employer]: Cosmo Childers MD Triglyceride [Mass/Vol] 107 mg/dL Normal <150 [facility] Comment on above: Performed By: #### 1 0231, 6590 #### [facility] [place] [address] [employer]: Cosmo Childers MD Laboratory - Chemistry and C hemistry - challengeon 10-08-2023 Albumin [Mass/Vol] 4.6 g/dL Normal 3.6 - 5.1 g/dL [facility], [facility].; [place] [employer] [facility], [facility]. Albumin/Globulin [Mass ratio] 1.9 {ratio} Normal 1.0 - 2.5 [facility].; [facility], [facility]. ALP [Catalytic activity/Vol] 70 U/L Normal 37 - 153 U/L [facility], [facility].; [facility], [facility]. ALT [Catalytic activity/Vol] 13 U/L Normal 6 - 29 U/L [facility], [facility].; [facility] AST [Catalytic activity/Vol] 18 U/L Normal 10 - 35 U/L [facility], [facility].; [place] [facility], [facility]. Bilirubin [Mass/Vol] 0.6 mg/dL Normal 0.2 - 1 .2 mg/dL [facility], [facility].; [place] [facility], [facility]. Calcium [Mass/Vol] 9.6 mg/dL Normal 8.6 - 10. 4 mg/dL [facility], [facility].; [place] [facility], [facility]. Chloride [Moles/Vol] 99 mmol/L Normal 98 - 11 0 mmol/L [facility], [facility].; [place] [employer], [facility]. Cholesterol [Mass/Vol] 265 mg/dL Abnormal [facility].; [place] [facility], [facility]. Cholesterol in HDL [Mass/Vol] 66 mg/dL Normal [facility], [facility].; [place] [employer] Cholesterol in LDL [Mass/Vol] 176 mg/dL Abnormal [facility], [facility].; [place] [employer], [facility]. CO2 [Moles/Vol] 28 mmol/L Normal 20 - 32 mmol/L [facility], [facility].; [place] [employer] Creatinine [Mass/Vol] 0.81 mg/dL Normal 0.50 - 1.05 mg/dL [facility], [facility].; [place] [employer], [facility]. GFR/1.73 sq M.predicted among non-blacks MDRD (S/P/Bld) [Vol rate/Area] 81 mL/min/{1.73_m2} Normal [facility], [facility].; [place] [employer] Glucose [Mass/Vol] 103 mg/dL Abnormal 65 - 99 mg/dL [facility].; [employer] Potassium [Moles/Vol] 4.4 mmol/L Normal 3.5 - 5.3 mmol/L [employer], [employer]. Protein [Mass/Vol] 7.0 g/dL Normal 6.1 - 8.1 g/dL [employer], [employer].; [employer], [employer]. Sodium [Moles/Vol] 136 mmol/L Normal 135 - 146 mmol/L [employer], [employer]. Triglyceride [Mass/Vol] 107 mg/dL Normal [employer].; [employer], [employer]. Urea nitrogen [Mass/Vol] 14 mg/dL Normal 7 - 25 mg/dL [employer].; [employer], [employer]. No Panel Informationon 10-08 BUN/CREATININE RATIO SEE NOTE: Normal 6 - 22 [facility] [employer].; [employer], [employer]. CHOL/HDLC RATIO 4.0 Normal [facility], [employer].; [employer], [employer]. GLOBULIN 2.4 Normal 1.9 - 3.7 [employer] [employer], [employer]. NON HDL CHOLESTEROL 199 Abnormal [facility] [employer].; [employer]. .GFRon 08-27-2019 GFR >60 Normal [facility] ([place]) Comment on above: Result Comment: GFR Population mean for , Non- Americans Ages 20-29 = 116 mL/min/1.73 sq.m. Ages 30-39 = 107 mL/min/1.73 sq.m. Ages 40-49 = 99 mL/min/1.73 sq.m. Ages 50-59 = 93 mL/min/1.73 sq.m. Ages 60-69 = 85 mL/min/1.73 sq.m. Ages 70+ = 75 mL/min/1.73 sq.m. Chronic Kidney Disease: Less than 60 mL/min/1.73 square meters End Stage Renal Disease: Less than 15 mL/min/1.73 square meters Performed By: #### C MP, GFR, LIPID #### [place] [address] GFR Non- >60 Normal [facility] ([place] Comment on above: Result Comment: GFR Population mean for , Non- Americans Ages 20-29 = 116 mL/min/1.73 sq.m. Ages 30-39 = 107 mL/min/1.73 sq.m. Ages 40-49 = 99 mL/min/1.73 sq.m. Ages 50-59 = 93 mL/min/1.73 sq.m. Ages 60-69 = 85 mL/min/1.73 sq.m. Ages 70+ = 75 mL/min/1.73 sq.m. Chronic Kidney Disease: Less than 60 mL/min/1.73 square meters End Stage Renal Disease: Less than 15 mL/min/1.73 square meters Performed By: #### C MP, GFR, LIPID #### [address] [address] CMPon 08-27-2019 Albumin/Globulin [Mass ratio] 1.4 {ratio} Normal 0.9-1.6 [facility] ([place] Comment on above: Performed By: #### C MP, GFR, LIPID #### [address] [address] ALP [Catalytic activity/Vol] 88 U/L Normal 38-126 [facility] ([place] Comment on above: Performed By: #### C MP, GFR, LIPID #### [address] [address] ALT [Catalytic activity/Vol] 25 U/L Normal 10-49 [facility] ([place] Comment on above: Performed By: #### C MP, GFR, LIPID #### [address] [address] AST [Catalytic activity/Vol] 23 U/L Normal 8-34 [facility] ([place] Comment on above: Performed By: #### C MP, GFR, LIPID #### [address] [address] Bili Total 0.5 mg/dL Normal 0.2-1.2 [facility] ([place] Comment on above: Performed By: #### C MP, GFR, LIPID #### [address] [address] Creatinine [Mass/Vol] 0.69 mg/dL Normal 0.50-1.20 [facility] ([place]) Comment on above: Performed By: #### C MP, GFR, LIPID #### [address] [address] Globulin (S) [Mass/Vol] 3.1 G/dL Normal 1.5-3.8 [facility] ([place] Comment on above: Performed By: #### C MP, GFR, LIPID #### [address] [address] Protein [Mass/Vol] 7.5 G/dL Normal 6.0-8.5 [facility], [facility] ([place]) Comment on above: Performed By: #### C MP, GFR, LIPID #### [address] [address] Urea nitrogen/Creatinine [Mass ratio] 18.8 ratio Normal 10.0-22.0 [facility] ([place] Comment on above: Performed By: #### C MP, GFR, LIPID #### [address] [address] Albumin [Mass/Vol] 4.4 G/dL Normal 3.2-4.8 [facility], [facility] ([place] Comment on above: Performed By: #### C MP, GFR, LIPID #### [address] [address] Calcium [Mass/Vol] 9.9 mg/dL Normal 8.4-10.1 [facility], [facility] ([place] Comment on above: Performed By: #### C MP, GFR, LIPID #### [address] [address] Chloride [Moles/Vol] 101 mmol/L Normal 98-110 [facility] ([place] Comment on above: Performed By: #### C MP, GFR, LIPID #### [address] [address] CO2 [Moles/Vol] 30 mmol/L Normal 22-32 [facility] ([place]) Comment on above: Performed By: #### C MP, GFR, LIPID #### [address] [address] Electrolyte Balance 4.0 mEq/L Normal 4.0-15.0 [facility] ([place] Comment on above: Performed By: #### C MP, GFR, LIPID #### [address] [address] Glucose [Mass/Vol] 106 mg/dL Normal 82-115 [facility], [facility] ([place]) Comment on above: Performed By: #### C MP, GFR, LIPID #### [address] [address] Potassium [Moles/Vol] 4.5 mmol/L Normal 3.5-5.0 [facility] ([place] Comment on above: Performed By: #### C MP, GFR, LIPID #### [address] [address] Sodium [Moles/Vol] 135 mmol/L Low 136-145 [facility], [facility] ([place] Comment on above: Performed By: #### C MP, GFR, LIPID #### [address] [address] Urea nitrogen [Mass/Vol] 13.0 mg/dL Normal 8.0-22.0 [facility] ([place] Comment on above: Performed By: #### C MP, GFR, LIPID #### [address] [address] LIPIDon 08-27-2019 Cholesterol [Mass/Vol] 262 mg/dL High 50-199 [facility] ([place] Comment on above: Result Comment: Chol esterol Reference Interval: Less than 200 Desirable 200-239 Borderline high risk 240 and above High risk Performed By: #### C MP, GFR, LIPID #### [address] [address] Cholesterol in HDL [Mass/Vol] 55 mg/dL Normal 40-59 [facility] ([place] Comment on above: Result Comment: HDL Reference Interval: Less than 40 Low - high risk 60 or above Optimal/lowers risk Performed By: #### C MP, GFR, LIPID #### [address] [address] Cholesterol in LDL [Mass/Vol] 172 mg/dL High 0-129 [facility] ([place] Comment on above: Result Comment: LDL is a calculated result and requires a 12- hr fast. LDL Reference Interval: Less than 100 Optimal 100-129 Near or above optimal 130-159 Borderline high risk 160-189 High risk 190 and above Very high risk Performed By: #### C MP, GFR, LIPID #### [place] [id number] [address] [place] [address] Triglyceride [Mass/Vol] 176 mg/dL High 3-149 [facility] ([place] Comment on above: Result Comment: Trig lyceride Reference Interval: Less than 150 Normal 150-199 Borderline high risk 200-499 High risk 500 or higher Very high risk Performed By: #### C MP, GFR, LIPID #### [address] [address] Laboratory - Chemistry and C hemistry - challengeon 09-23-2013 Albumin [Mass/Vol] 4.7 g/dL Normal 3.5 - 5.0 g/dL [employer], [employer].; [employer]. Albumin/Globulin [Mass ratio] 1.5 {ratio} Normal [employer] [facility].; [employer], [employer]. ALP [Catalytic activity/Vol] 99 U/L Normal 50 - 136 U/L [employer] [facility].; [employer], [employer]. ALT [Catalytic activity/Vol] 29 mmol/L Normal 12 - 49 mmol/L [employer], [employer].; [employer], [employer]. AST [Catalytic activity/Vol] 20 U/L Normal 15 - 37 U/L [employer], [facility].; [employer], [employer]. Bilirubin [Mass/Vol] 0.4 mg/dL Normal 0.3 - 1 .0 mg/dL [employer], [employer].; [employer], [employer]. Calcium [Mass/Vol] 9.5 mg/dL Normal 8.4 - 10. 6 mg/dL [employer], [employer].; [employer], [employer]. Chloride [Moles/Vol] 101 mmol/L Normal 98 - 11 0 mmol/L [employer], [employer].; [employer], [employer] [employer]. Cholesterol [Mass/Vol] 250 mg/dL Abnormal 0 - 200 mg/dL [facility], [facility]. Cholesterol in HDL [Mass/Vol] 53 mg/dL Normal 40 - 60 mg/dL [facility], [facility]. Cholesterol in LDL [Mass/Vol] 172 mg/dL Abnormal 50.0 - 130.0 mg/dL [facility], [facility].; [facility], [facility]. Cholesterol in VLDL [Mass/Vol] - Normal [facility], [facility]. Cholesterol.total/Cho lesterol in HDL [Mass ratio] - Normal 0 - 5.0 [facility], [facility]. CO2 [Moles/Vol] 31 {tory/L} Normal 22.0 - 32.0 {tory/L} [facility], [facility].; [facility], [facility]. Creatinine [Mass/Vol] 0.82 mg/dL Normal 0.6 - 1.4 mg/dL [facility], [facility].; [facility], [facility]. Globulin (S) [Mass/Vol] 3.1 g/dL Normal 1.5 - 3.8 g/dL [facility], [facility]. Glucose [Mass/Vol] 110 mg/dL Abnormal 75 - 105 mg/dL [facility], [facility].; [facility], [facility]. Potassium [Moles/Vol] 4.2 mmol/L Normal 3.50 - 5.00 meq/L [facility], [facility].; [facility], [facility]. Protein [Mass/Vol] 7.8 g/dL Normal 6.4 - 8.2 g/dL [facility], [facility].; [facility], [facility]. Sodium [Moles/Vol] 140 mmol/L Normal 136 - 145 mmol/L [facility], [facility].; [facility], [facility]. Triglyceride [Mass/Vol] 126 mg/dL Normal 40 - 150 mg/dL [facility], [facility].; [facility], [facility]. Urea nitrogen [Mass/Vol] 16.0 mg/dL Normal 7.0 - 20.0 mg/dL [facility], [facility].; [facility], [facility]. Urea nitrogen/Creatinine [Mass ratio] 19.5 mg/mg Normal 0 - 30 [facility] [employer] No Panel Informationon 09-23 GFR >60 Normal [facility] [employer] [facility].; [employer] GFR2 >60 Normal [place] [facility] [employer] Laboratory - Cytologyon 09-06 Microscopic observation Cyto stain Nom (Cvx) SEE NOTE Normal [place] [employer]. Laboratory - Chemistry and C hemistry - challengeon 09-20-2012 Albumin [Mass/Vol] 4.4 g/dL Normal 3.6 - 5.1 g/dL [facility].; [employer], [employer]. Albumin/Globulin [Mass ratio] 1.7 {ratio} Normal 1.0 - 2.1 [facility].; [employer], [employer]. ALP [Catalytic activity/Vol] 71 U/L Normal 33 - 130 U/L [place] [facility].; [employer], [employer]. ALT [Catalytic activity/Vol] 15 U/L Normal 6 - 40 U/L [place] [employer] [facility].; [employer], [employer]. AST [Catalytic activity/Vol] 19 U/L Normal 10 - 35 U/L [place] [employer], [employer]. Bilirubin [Mass/Vol] 0.5 mg/dL Normal 0.2 - 1 .2 mg/dL [place] [facility].; [employer], [facility]. Calcium [Mass/Vol] 9.5 mg/dL Normal 8.6 - 10. 4 mg/dL [place] [facility].; [employer], [employer]. Chloride [Moles/Vol] 104 mmol/L Normal 98 - 11 0 mmol/L [place] [facility].; [employer], [employer]. Cholesterol [Mass/Vol] 231 mg/dL Abnormal 125 - 200 mg/dL [place] [employer] [facility].; [employer], [facility]. Cholesterol in HDL [Mass/Vol] 49 mg/dL Normal [place] [employer], [facility].; [employer], [employer]. Cholesterol in LDL [Mass/Vol] 163 mg/dL Abnormal [employer] [facility].; [employer], [employer]. Cholesterol non HDL [Mass/Vol] 182 mg/dL Abnormal [facility] Cholesterol.total/Cho lesterol in HDL [Mass ratio] 4.7 {ratio} Normal [facility], [facility] CO2 [Moles/Vol] 32 mmol/L Normal 21 - 33 mmol/L [facility], [facility]. Creatinine [Mass/Vol] 0.87 mg/dL Normal 0.50 - 1.05 mg/dL [facility], [facility]. GFR/1.73 sq M.predicted among blacks MDRD (S/P/Bld) [Vol rate/Area] 88 {ML/MIN/1.73M2} Normal [facility], [facility]. GFR/1.73 sq M.predicted MDRD (S/P/Bld) [Vol rate/Area] 76 {ML/MIN/1.73M2} Normal [facility], [facility].; [facility], [facility]. Globulin (S) [Mass/Vol] 2.5 g/dL Normal 2.2 - 3.9 g/dL [facility], [facility]. Glucose [Mass/Vol] 105 mg/dL Abnormal 65 - 99 mg/dL [facility].; [facility], [facility]. Potassium [Moles/Vol] 4.4 mmol/L Normal 3.5 - 5.3 mmol/L [facility], [facility]. Protein [Mass/Vol] 6.9 g/dL Normal 6.2 - 8.3 g/dL [facility], [facility]. Sodium [Moles/Vol] 140 mmol/L Normal 135 - 146 mmol/L [facility], [facility].; [facility], [facility]. Triglyceride [Mass/Vol] 97 mg/dL Normal [facility], [facility]. Urea nitrogen [Mass/Vol] 20 mg/dL Normal 7 - 25 mg/dL [facility], [facility].; [facility], [facility]. Urea nitrogen/Creatinine [Mass ratio] 22.6 mg/mg Abnormal 6 - 22 [facility] Laboratory - Chemistry and C hemistry - challengeon 09-13-2011 Albumin [Mass/Vol] 4.8 g/dL Normal 3.5 - 5.0 g/dL [facility]; [facility] Albumin/Globulin [Mass ratio] 1.9 {ratio} Abnormal [facility].; [facility] ALP [Catalytic activity/Vol] 76 U/L Normal 50 - 136 U/L [facility].; [facility]. ALT [Catalytic activity/Vol] 19 mmol/L Normal 12 - 49 mmol/L [facility]; [facility]. AST [Catalytic activity/Vol] 25 U/L Normal 15 - 37 U/L [facility].; [place] [facility] Bilirubin [Mass/Vol] 0.5 mg/dL Normal 0.3 - 1 .0 mg/dL [facility].; [place] [facility] Calcium [Mass/Vol] 10.1 mg/dL Normal 8.4 - 10. 6 mg/dL [facility].; [place] [employer] [facility] Chloride [Moles/Vol] 103 mmol/L Normal 98 - 11 0 mmol/L [facility].; [place] [facility] [employer] [facility]. Cholesterol [Mass/Vol] 224 mg/dL Abnormal 0 - 200 mg/dL [facility].; [facility] Cholesterol in HDL [Mass/Vol] 52 mg/dL Normal 40 - 60 mg/dL [facility].; [facility]. Cholesterol in LDL [Mass/Vol] 147 mg/dL Abnormal 50.0 - 130.0 mg/dL [facility].; [place] [facility] Cholesterol.total/Cho lesterol in HDL [Mass ratio] 4.3 {ratio} Normal 0 - 5.0 [facility].; [facility] CO2 [Moles/Vol] 33.0 {tory/L} Abnormal 22.0 - 32.0 {tory/L} [facility].; [place] [employer] [facility] Creatinine [Mass/Vol] 0.8 mg/dL Normal 0.6 - 1.4 mg/dL [facility]. Globulin (S) [Mass/Vol] 1.9 g/dL Normal 1.5 - 3.8 g/dL [facility], [facility]. Glucose [Mass/Vol] 99 mg/dL Normal 75 - 105 mg/dL [facility], [facility] Potassium [Moles/Vol] 4.3 mmol/L Normal 3.50 - 5.00 meq/L [facility], [facility] Protein [Mass/Vol] 7.3 g/dL Normal 6.4 - 8.2 g/dL [facility]; [facility], [facility] Sodium [Moles/Vol] 140 mmol/L Normal 136 - 145 mmol/L [facility], [facility] Triglyceride [Mass/Vol] 125 mg/dL Normal 40 - 150 mg/dL [facility], [facility] Urea nitrogen [Mass/Vol] 12 mg/dL Normal 7.0 - 20.0 mg/dL [facility], [facility] Urea nitrogen/Creatinine [Mass ratio] 15 mg/mg Normal 0 - 30 [facility]; [facility], [facility] Laboratory - Chemistry and C hemistry - challengeon 09-09-2010 Albumin [Mass/Vol] 4.7 g/dL Normal 3.5 - 5.0 g/dL [facility], [facility] Albumin/Globulin [Mass ratio] 1.7 {ratio} Abnormal [facility]; [facility], [facility] ALP [Catalytic activity/Vol] 64 U/L Normal 50 - 136 U/L [facility], [facility]. ALT [Catalytic activity/Vol] 19 mmol/L Normal 12 - 49 mmol/L [facility], [facility]. AST [Catalytic activity/Vol] 20 U/L Normal 15 - 37 U/L [facility], [facility].; [facility], [facility]. Bilirubin [Mass/Vol] 0.6 mg/dL Normal 0.3 - 1 .0 mg/dL [facility], [facility]. Calcium [Mass/Vol] 9.9 mg/dL Normal 8.4 - 10. 6 mg/dL [facility], [facility]. Chloride [Moles/Vol] 100 mmol/L Normal 98 - 11 0 mmol/L [facility], [facility].; [facility], [facility]. Cholesterol [Mass/Vol] 253 mg/dL Abnormal 0 - 200 mg/dL [facility], [facility]. Cholesterol in HDL [Mass/Vol] 52 mg/dL Normal 40 - 60 mg/dL [facility], [facility]. Cholesterol in LDL [Mass/Vol] 176 mg/dL Abnormal 50.0 - 130.0 mg/dL [facility], [facility]. Cholesterol.total/Cho lesterol in HDL [Mass ratio] 4.9 {ratio} Normal 0 - 5.0 [facility], [facility]. CO2 [Moles/Vol] 33.0 {tory/L} Abnormal 22.0 - 32.0 {tory/L} [facility], [facility].; [facility], [facility]. Creatinine [Mass/Vol] 0.9 mg/dL Normal 0.6 - 1.4 mg/dL [facility], [facility].; [facility], [facility]. Globulin (S) [Mass/Vol] 2.8 g/dL Normal 1.5 - 3.8 g/dL [facility], [facility]. Glucose [Mass/Vol] 116 mg/dL Abnormal 75 - 105 mg/dL [facility], [facility].; [facility], [facility]. Potassium [Moles/Vol] 5.6 mmol/L Abnormal 3.50 - 5.00 meq/L [facility].; [facility], [facility]. Protein [Mass/Vol] 7.5 g/dL Normal 6.4 - 8.2 g/dL [facility], [facility].; [facility], [facility]. Sodium [Moles/Vol] 138 mmol/L Normal 136 - 145 mmol/L [facility].; [facility]. Triglyceride [Mass/Vol] 126 mg/dL Normal 40 - 150 mg/dL [facility], [facility].; [facility], [facility]. Urea nitrogen [Mass/Vol] 22 mg/dL Abnormal 7.0 - 20.0 mg/dL [facility], [facility].; [facility], [facility] Urea nitrogen/Creatinine [Mass ratio] 24 mg/mg Normal 0 - 30 [facility], [facility].; [facility], [facility] Vital Signs Date Time Vital Sign Value Performing Clinician Facility 05-26-2025 13:16-0400 Body height 165.[address] Eduardo Shook MD Work Phone: [facility] 05-26-2025 13:16-0400 Body mass index (BMI) [Ratio] 19.6 kg/m2 Dr. Eduardo Shook MD Work Phone: [facility] 05-26-2025 13:16-0400 Body weight 53.[address] Eduardo Shook MD Work Phone: [facility] 05-26-2025 13:16-0400 Diastolic blood pressure 78 mm[Hg] Dr. Eduardo Shook MD Work Phone: [phone] [place] [address] 05-26-2025 13:16-0400 Systolic blood pressure 122 mm[Hg] Dr. Eduardo Shook MD Work Phone: [facility] 04-21-2025 09:08-0400 Body height 165.1 cm Maru Mccabe LPN [facility], [facility]. 04-21-2025 09:08-0400 Body mass index (BMI) [Ratio] 19.64 kg/m2 Maru Mccabe LPN [facility], [facility].; [facility], [facility]. 04-21-2025 09:08-0400 Body surface area Derived from formula 1.58 m2 Maru Mccabe LPN [facility], [facility].; [facility], [facility]. 04-21-2025 09:08-0400 Body weight 53.52 kg Maru Mccabe LPN [facility], [facility].; [facility], [facility]. 04-21-2025 09:08-0400 Diastolic blood pressure 67 mm[Hg] Maru Mccbae LPN [facility], [facility].; [facility], [facility]. Comment on above: Patient Position: Sitting; Cuff Location : Left Arm; Cuff Size: Standard 04-21-2025 09:08-0400 Heart rate 66 /min Maru Mccabe JENNIFER [facility], [facility].; [facility] Comment on above: Pattern: Regular 04-21-2025 09:08-0400 Systolic blood pressure 108 mm[Hg] Maru Mccabe [employer] [facility], [facility].; [facility], [facility]. Comment on above: Patient Position: Sitting; Cuff Location : Left Arm; Cuff Size: Standard 03-09-2025 13:39-0400 Body height 165.1 cm Eitan Umana [employer]ER [employer] MA[employer]GER [facility], [facility].; [facility], [facility]. 03-09-2025 13:39-0400 Body mass index (BMI) [Ratio] 19.8 kg/m2 Eitan Umana [facility], [facility].; [facility], [facility]. 03-09-2025 13:39-0400 Body surface area Derived from formula 1.59 m2 Eitan Umana [facility], [facility].; [facility], [facility]. 03-09-2025 13:39-0400 Body temperature 98.3 [degF] Eitanpatricia Umana [facility], [facility].; [place] [facility], [facility]. 03-09-2025 13:39-0400 Body weight 53.98 kg Eitan Umana [employer]ER [employer]S MANAGER [facility], [facility].; [facility], [facility]. 03-09-2025 13:39-0400 Diastolic blood pressure 70 mm[Hg] Eitan Umana [employer]ER [employer] MANAGER [facility], [facility].; [facility], [facility]. Comment on above: Patient Position: Sitting; Cuff Location : Left Arm; Cuff Size: Standard 03-09-2025 13:39-0400 Heart rate 68 /min Eitanpatricia Umana [employer]ER [employer] MANAGER [facility], [facility].; [place] [facility] Comment on above: Pattern: Regular 03-09-2025 13:39-0400 Inhaled oxygen concentration 21 % Eitanpatricia Umana [facility], [facility].; [facility] Comment on above: Room air 03-09-2025 13:39-0400 SaO2% (BldA) [Mass fraction] 96 % Eitan Umana JENNIFER [facility], [facility].; [facility] 03-09-2025 13:39-0400 Systolic blood pressure 120 mm[Hg] Eitan Umana [employer]ER [employer]S MANAGER [facility] [place] [facility], [employer]. Comment on above: Patient Position: Sitting; Cuff Location : Left Arm; Cuff Size: Standard 11-11-2024 07:59-0500 Body height 165.1 cm Eitan Umana COM[employer]ER SYSTEMS MANAGER [facility], [facility]. 11-11-2024 07:59-0500 Body mass index (BMI) [Ratio] 19.97 kg/m2 Eitan Umana [employer] MA[employer] [facility], [facility].; [facility], [facility]. 11-11-2024 07:59-0500 Body surface area Derived from formula 1.59 m2 Eitanpatricia Umana [employer]ER [employer]S MANAGER [facility], [facility].; [facility], [facility]. 11-11-2024 07:59-0500 Body weight 54.43 kg Eitan Umana [facility], [facility].; [facility], [facility]. 11-11-2024 07:59-0500 Diastolic blood pressure 72 mm[Hg] Eitan Umana [employer]ER [employer]S MANAGER [facility], [facility].; [facility], [employer]. Comment on above: Patient Position: Sitting; Cuff Location : Left Arm; Cuff Size: Standard 11-11-2024 07:59-0500 Heart rate 66 /min Eitan Umana [employer]ER [employer]S MANAGER [facility], [facility].; [place] [employer] [facility], [employer]. Comment on above: Pattern: Regular 11-11-2024 07:59-0500 Systolic blood pressure 118 mm[Hg] Eitan Umana [employer]ER [employer] MANAGER [facility], [facility].; [place] [employer] [facility], [employer]. Comment on above: Patient Position: Sitting; Cuff Location : Left Arm; Cuff Size: Standard 05-05-2024 08:05-0400 Body height 165.1 cm Bernadette Rincon [facility], [facility].; [place] [employer] [facility], [employer]. 05-05-2024 08:05-0400 Body mass index (BMI) [Ratio] 19.97 kg/m2 Bernadette Rincon LPN [facility] 05-05-2024 08:05-0400 Body surface area Derived from formula 1.59 m2 Bernadette Rincon COMPUTER [employer]S MANAGER [facility] 05-05-2024 08:05-0400 Body weight 54.43 kg Bernadette Rincon COMPUTER SYSTEMS MANAGER [facility] 05-05-2024 08:05-0400 Diastolic blood pressure 80 mm[Hg] Bernadette Rincon [facility] [employer] [facility] Comment on above: Patient Position: Sitting; Cuff Location : Left Arm; Cuff Size: Large 05-05-2024 08:05-0400 Heart rate 66 /min Bernadette Rincon COMPUTER SYSTEMS MANAGER [facility] [employer] [facility] Comment on above: Pattern: Regular 05-05-2024 08:05-0400 Systolic blood pressure 121 mm[Hg] Bernadette Rincon COMPUTER SYSTEMS MANAGER [facility] [employer] [facility] Comment on above: Patient Position: Sitting; Cuff Location : Left Arm; Cuff Size: Large 02-13-2024 10:06-0400 Body height 165.1 cm Eitan Umana LPN [facility] [employer] [facility] 02-13-2024 10:06-0400 Body mass index (BMI) [Ratio] 20.97 kg/m2 Eitan Umana LPN [facility] [employer] [facility] 02-13-2024 [id number] Body surface area Derived from formula 1.63 m2 Eitan Umana COMPUTER SYSTEMS MANAGER [facility] [employer] [facility], [facility]. 02-13-2024 10:06-0400 Body weight 57.15 kg Eitan Umana COMPUTER SYSTEMS MANAGER [facility] [employer] 02-13-2024 10:06-0400 Diastolic blood pressure 76 mm[Hg] Eitan Umana LPN [facility] Comment on above: Patient Position: Sitting; Cuff Location : Left Arm; Cuff Size: Standard 02-13-2024 10:06-0400 Heart rate 73 /min Eitan Umana LPN [facility], [facility].; [facility], [facility]. Comment on above: Pattern: Regular 02-13-2024 10:06-0400 Systolic blood pressure 116 mm[Hg] Eitan Umana LPN [facility], [facility]. Comment on above: Patient Position: Sitting; Cuff Location : Left Arm; Cuff Size: Standard 02-06-2024 11:06-0400 Heart rate 89 /min DR EDILBERTO ORR MD [address] [place], [place] [id number] 02-06-2024 11:06-0400 Reason For Taking VItal Signs DR EDILBERTO ORR MD [address] [place] [address] 02-06-2024 11:01-[address] Cuff Size DR EDILBERTO ORR MD [address] [place] [address] 02-06-2024 11:01-[address] EDILBERTO ORR MD [address] [place] [address] 02-06-2024 11:01-[address] EDILBERTO ORR MD [address] 02-06-2024 11:01-0400 Body temperature 97.88 [degF] DR EDILBERTO ORR MD [address] 02-06-2024 11:01-0400 Diastolic Blood Pressure Non-Invasive 72 mm[Hg] DR EDILBERTO ORR MD [address] 02-06-2024 11:01-0400 Heart rate 72 /min DR EDILBERTO ORR MD [address] [place] [address] 02-06-2024 11:01-0400 Reason For Taking VItal Signs DR EDILBERTO ORR MD [address] [place] [address] 02-06-2024 11:01-0400 Respiratory rate 16 /min DR EDILBERTO ORR MD [address] [place] [address] 02-06-2024 11:01-0400 Systolic Blood Pressure Non-Invasive 110 mm[Hg] DR EDILBERTO ORR MD [address] [place] [address] 02-06-2024 07:51-0400 Heart rate 97 /min DR EDILBERTO ORR MD [address] [place] [address] 02-06-2024 07:32-[address] EDILBERTO ORR MD [address] [place] [address] 02-06-2024 07:32-[address] EDILBERTO ORR MD [address] [place] [address] 02-06-2024 07:32-0400 Body temperature 97.7 [degF] DR EDILBERTO ORR MD [address] [place] [address] 02-06-2024 07:32-0400 Diastolic Blood Pressure Non-Invasive 78 mm[Hg] DR EDILBERTO ORR MD [address] [place] [address] 02-06-2024 07:32-0400 Heart rate 96 /min DR EDILBERTO ORR MD [address] [place] [address] 02-06-2024 07:32-0400 Reason For Taking VItal Signs DR EDILBERTO ORR MD [address] [place] [address] 02-06-2024 07:32-0400 Respiratory rate 18 /min DR EDILBERTO ORR MD [address] [place] [address] 02-06-2024 07:32-0400 Systolic Blood Pressure Non-Invasive 110 mm[Hg] DR EDILBERTO ORR MD [address] [place] [address] 02-06-2024 05:03-[address] EDILBERTO ORR MD [address] [place] [address] 02-06-2024 05:03-[address] EDILBERTO ORR MD [address] [place] [address] 02-06-2024 05:03-0400 Body temperature 97.52 [degF] DR EDILBERTO ORR MD [address] [place] [address] 02-06-2024 05:03-0400 Diastolic Blood Pressure Non-Invasive 69 mm[Hg] DR EDILBERTO ORR MD [address] [place] [address] 02-06-2024 05:03-0400 Respiratory rate 18 /min DR EDILBERTO ORR MD [address] [place] [address] 02-06-2024 05:03-0400 Systolic Blood Pressure Non-Invasive 138 mm[Hg] DR EDILBERTO ORR MD [address] [place] [address] 02-05-2024 23:15-0400 Mean blood pressure 83 mm[Hg] DR EDILBERTO ORR MD [address] [place] [address] 02-05-2024 21:59-0400 Mean blood pressure 110 mm[Hg] DR EDILBERTO ORR MD [address] [place] [address] 02-05-2024 20:00-0400 Mean blood pressure 98 mm[Hg] DR EDILBERTO ORR MD [address] [place] [address] 02-05-2024 11:28-04[address] Blood [address] Cuff Size DR EDILBERTO ORR MD [address] [place] [address] 02-05-2024 08:18-0400 Heart rate 81 /min DR EDILBERTO ORR MD [address] [place] [address] 02-04-2024 07:28-0400 Heart rate 88 /min DR EDILBERTO ORR MD [address] [place] [address] 02-03-2024 10:41-0400 Body height 165.[address] EDILBERTO ROR MD [address] [place] [address] 02-03-2024 10:41-0400 Body weight 58.[address] EDILBERTO ORR MD [address] [place] [address] 02-03-2024 10:41-0400 Body weight 21.42 kg/m2 DR EDILBERTO ORR MD [facility] 11-14-2023 10:50-0500 Body height 165.1 cm Radha Vipin LOPEZ [facility] [employer]. 11-14-2023 10:50-0500 Body mass index (BMI) [Ratio] 21.71 kg/m2 Radha [facility] [employer]. 11-14-2023 10:50-0500 Body surface area Derived from formula 1.65 m2 Radha Lew [facility].; [employer]. 11-14-2023 10:50-0500 Body temperature 97.2 [degF] Radhaterry Lew JOHN [employer]. 11-14-2023 10:50-0500 Body weight 59.17 kg Radha Lew MA [employer]. 11-14-2023 10:50-0500 Diastolic blood pressure 90 mm[Hg] Radha Lew [facility] [employer]. Comment on above: Patient Position: Sitting; Cuff Location : Left Arm; Cuff Size: Standard 11-14-2023 10:50-0500 Heart rate 79 /min Radhaterry Lew [facility] [employer]. Comment on above: Pattern: Regular 11-14-2023 10:50-0500 Inhaled oxygen concentration 20 % Eduardo Shook MD Work Phone: [employer]. Comment on above: Room air 11-14-2023 10:50-0500 Inhaled oxygen concentration 21 % Radha Lew [facility] [employer]. Comment on above: Room air 11-14-2023 10:50-0500 SaO2% (BldA) [Mass fraction] 98 % Radha Lew MA [employer]. 11-14-2023 10:50-0500 Systolic blood pressure 150 mm[Hg] Radha Lew MA [facility] Comment on above: Patient Position: Sitting; Cuff Location : Left Arm; Cuff Size: Standard 11-08-2023 13:07-0500 Body height 165.1 cm Maru Mccabe LPN [facility], [facility].; [facility] 11-08-2023 13:07-0500 Body mass index (BMI) [Ratio] 21.97 kg/m2 Maru Mccabe LPN [facility] 11-08-2023 13:07-0500 Body surface area Derived from formula 1.66 m2 Maru Mccabe LPN [facility] 11-08-2023 13:07-0500 Body weight 59.88 kg Maru Mccabe LPN [facility] 11-08-2023 13:07-0500 Diastolic blood pressure 77 mm[Hg] Maru Mccabe LPN [facility] Comment on above: Patient Position: Sitting; Cuff Location : Left Arm; Cuff Size: Standard 11-08-2023 13:07-0500 Heart rate 80 /min Maru Mccabe LPN [facility], [facility]. Comment on above: Pattern: Regular 11-08-2023 13:07-0500 Systolic blood pressure 145 mm[Hg] Maru Mccabe LPN [facility], [facility]. Comment on above: Patient Position: Sitting; Cuff Location : Left Arm; Cuff Size: Standard 04-26-2023 09:54-0400 Body height 165.[address] Eduardo Shook Work Phone: [facility] 04-26-2023 09:41-0400 Body mass index (BMI) [Ratio] 21.2 kg/m2 Dr. Eduardo Shook Work Phone: [facility] 04-26-2023 09:41-0400 Body weight 57.[address] Eduardo Shook Work Phone: [facility] 04-26-2023 09:41-0400 Diastolic blood pressure 82 mm[Hg] Dr. Eduardo Shook Work Phone: [facility] 04-26-2023 09:41-0400 Systolic blood pressure 130 mm[Hg] Dr. Eduardo Shook Work Phone: [facility] 09-13-2020 11:19-0500 Body height 165.1 cm Kimber Rea [facility], [facility] [employer]. 09-13-2020 11:19-0500 Body temperature 99.5 [degF] [facility] [employer]. Comment on above: Method: Tympanic 09-13-2020 11:19-0500 Inhaled oxygen concentration 20 % [facility] [employer]. Comment on above: Room air 09-13-2020 11:19-0500 Inhaled oxygen concentration 21 % [facility] Rea [facility], [employer]. Comment on above: Room air 09-13-2020 11:19-0500 SaO2% (BldA) [Mass fraction] 99 % [facility], [facility].; [employer] 08-20-2019 08:20-0400 Body height 165.1 cm [facility], [facility] [employer]. 08-20-2019 08:20-0400 Body mass index (BMI) [Ratio] 23.3 kg/m2 [facility], [employer]. 08-20-2019 08:20-0400 Body surface area Derived from formula 1.7 m2 [facility], [employer].; [employer] 08-20-2019 08:20-0400 Body temperature 98.4 [degF] [facility] Rea [facility], [employer].; [employer]. Comment on above: Method: Tympanic 08-20-2019 08:20-0400 Body weight 63.5 kg Bernadette Rincon LPN [facility], Inc.; [employer] 08-20-2019 08:20-0400 Diastolic blood pressure 85 mm[Hg] Bernadette Rincon LPN [facility], Inc[employer] Comment on above: Patient Position: Sitting; Cuff Location : Left Arm; Cuff Size: Large 08-20-2019 08:20-0400 Heart rate 79 /min Bernadette Rincon [facility], Inc.; [employer] Comment on above: Pattern: Regular 08-20-2019 08:20-0400 Systolic blood pressure 141 mm[Hg] Bernadette Rincon LPN [facility], Inc[employer] Comment on above: Patient Position: Sitting; Cuff Location : Left Arm; Cuff Size: Large 12-11-2017 09:49-0500 Body height 165.1 cm Bernadette Rincon COMPUTER SYSTEMS MANAGER [facility], Inc[employer] 12-11-2017 09:49-0500 Body mass index (BMI) [Ratio] 22.96 kg/m2 Bernadette Rincon [facility], [facility].; [employer] 12-11-2017 09:49-0500 Body surface area Derived from formula 1.69 m2 Bernadette Rincon COMPUTER SYSTEMS MANAGER [facility], Inc.; [employer] 12-11-2017 09:49-0500 Body weight 62.6 kg Bernadette Rincon LPN [facility], Inc.; [employer] 12-11-2017 09:49-0500 Diastolic blood pressure 90 mm[Hg] Bernadette Rincon COMPUTER SYSTEMS MANAGER [facility], Inc.; [employer] Comment on above: Patient Position: Sitting; Cuff Location : Left Arm; Cuff Size: Large 12-11-2017 09:49-0500 Heart rate 90 /min Bernadette Rincon LPN [employer] [facility], Inc.; [employer] Comment on above: Pattern: Regular 12-11-2017 09:49-0500 Systolic blood pressure 154 mm[Hg] Bernadette Rincon JENNIFER [facility], Inc.; [employer] Comment on above: Patient Position: Sitting; Cuff Location : Left Arm; Cuff Size: Large 02-09-2017 10:28-0400 Body height 165.1 cm Psatora Guzmanmagen RODRIGUEZ [facility], Inc.; [employer] 02-09-2017 10:28-0400 Body mass index (BMI) [Ratio] 24.3 kg/m2 Pastora Wemagen [facility], Inc.; [employer] 02-09-2017 10:28-0400 Body surface area Derived from formula 1.73 m2 Pastora Wemagen RODRIGUEZ [facility], Inc.; [place] [employer] 02-09-2017 10:28-0400 Body weight 66.23 kg Pastora Wemagen [facility], Inc.; [place] [employer] 02-09-2017 10:28-0400 Diastolic blood pressure 86 mm[Hg] Pastora Wemagen [facility], Inc.; [employer] Comment on above: Patient Position: Sitting; Cuff Location : Left Arm; Cuff Size: Standard 02-09-2017 10:28-0400 Heart rate 71 /min Pastora Wemagen RODRIGUEZ [facility], Inc.; [employer] Comment on above: Pattern: Regular 02-09-2017 10:28-0400 Systolic blood pressure 119 mm[Hg] Pastora Guzmanmagen RODRIGUEZ [facility], Inc.; [employer] Comment on above: Patient Position: Sitting; Cuff Location : Left Arm; Cuff Size: Standard 01-01-2017 09:50-0500 Body height 165.1 cm Pastora Wemagen RODRIGUEZ [place] [employer] [facility], Inc.; [place] [employer] 01-01-2017 09:50-0500 Body mass index (BMI) [Ratio] 23.63 kg/m2 Pastora Wemagen RODRIGUEZ [facility], Inc.; [place] [employer] 01-01-2017 09:50-0500 Body surface area Derived from formula 1.71 m2 Pastora Wallis LPN [place] [employer] [facility], Inc.; [employer] 01-01-2017 09:50-0500 Body temperature 99.4 [degF] Pastora Bimal [facility], Inc.; [employer] Comment on above: Method: Tympanic 01-01-2017 09:50-0500 Body weight 64.41 kg Pastora Wallis LPN [place] [employer] [facility], Inc.; [employer] 01-01-2017 09:50-0500 Diastolic blood pressure 87 mm[Hg] [facility]arla [facility]is [facility], Inc.; [employer] Comment on above: Patient Position: Sitting; Cuff Location : Left Arm; Cuff Size: Standard 01-01-2017 09:50-0500 Heart rate 80 /min Pastora Wallis LPN [facility], Inc.; [employer] Comment on above: Pattern: Regular 01-01-2017 09:50-0500 Inhaled oxygen concentration 20 % Pastora Wallis LPN [place] [facility], Inc.; [employer]. Comment on above: Room air 01-01-2017 09:50-0500 Inhaled oxygen concentration 21 % Pastora Wallis LPN [place] [employer] [facility], Inc.; [employer] Comment on above: Room air 01-01-2017 09:50-0500 SaO2% (BldA) [Mass fraction] 98 % Pastora Wallis COMPUTER SYSTEMS MANAGER [place] [facility], Inc.; [employer] 01-01-2017 09:50-0500 Systolic blood pressure 148 mm[Hg] [facility], [employer], [employer]. Comment on above: Patient Position: Sitting; Cuff Location : Left Arm; Cuff Size: Standard 09-09-2015 17:48-0500 Body height 165.1 cm Nichol Neal JENNIFER Work Phone: [place] [facility].; [employer]. 09-09-2015 17:48-0500 Body mass index (BMI) [Ratio] 24.46 kg/m2 Nichol Neal LPN Work Phone: [employer].; [employer]. 09-09-2015 17:48-0500 Body surface area Derived from formula 1.74 m2 Nichol Neal LPN Work Phone: [employer].; [employer]. 09-09-2015 17:48-0500 Body weight 66.68 kg Nichol Neal LPN Work Phone: [employer].; [employer]. 09-09-2015 17:48-0500 Diastolic blood pressure 87 mm[Hg] Nichol Neal LPN Work Phone: [employer]; [employer]. Comment on above: Patient Position: Sitting; Cuff Location : Left Arm; Cuff Size: Standard 09-09-2015 17:48-0500 Heart rate 75 /min Nichol Neal LPN Work Phone: [employer]; [employer]. Comment on above: Pattern: Regular 09-09-2015 17:48-0500 Systolic blood pressure 138 mm[Hg] Nichol Neal LPN Work Phone: [employer]; [employer]. Comment on above: Patient Position: Sitting; Cuff Location : Left Arm; Cuff Size: Standard 07-16-2015 13:51-0400 Body height 165.1 cm Rajani Kramer RN [place] [employer]. 07-16-2015 13:51-0400 Body mass index (BMI) [Ratio] 24.3 kg/m2 Rajani Kramer RN [place] [employer]. 07-16-2015 13:51-0400 Body surface area Derived from formula 1.73 m2 Rajani Kramer RN [place] [employer]. 07-16-2015 13:51-0400 Body weight 66.23 kg Rajani Kramer RN [place] [employer]. 07-16-2015 13:51-0400 Diastolic blood pressure 88 mm[Hg] Rajani Kramer RN [place] [employer]. Comment on above: Patient Position: Sitting; Cuff Location : Left Arm; Cuff Size: Standard 07-16-2015 13:51-0400 Heart rate 81 /min Rajani Kramer RN [place] [employer]. Comment on above: Pattern: Regular 07-16-2015 13:51-0400 Systolic blood pressure 134 mm[Hg] Rajani Kramer RN [employer]. Comment on above: Patient Position: Sitting; Cuff Location : Left Arm; Cuff Size: Standard 03-16-2014 08:42-0400 Body height 165.1 cm [employer] COMPUTER SYSTEMS MANAGER Work Phone: [employer].; [employer] 03-16-2014 08:42-0400 Body mass index (BMI) [Ratio] 23.96 kg/m2 [employer] COMPUTER SYSTEMS MANAGER Work Phone: [employer].; [employer]. 03-16-2014 08:42-0400 Body surface area Derived from formula 1.72 m2 [employer] COMPUTER SYSTEMS MANAGER Work Phone: [employer].; [employer]. 03-16-2014 08:42-0400 Body weight 65.32 kg [employer] COMPUTER SYSTEMS MANAGER Work Phone: [employer].; [employer]. 03-16-2014 08:42-0400 Diastolic blood pressure 87 mm[Hg] Nichol [employer] COMPUTER SYSTEMS MANAGER Work Phone: [employer].; [employer]. Comment on above: Patient Position: Sitting; Cuff Location : Left Arm; Cuff Size: Standard 03-16-2014 08:42-0400 Heart rate 77 /min [employer] COMPUTER SYSTEMS MANAGER Work Phone: [employer]. Comment on above: Pattern: Regular 03-16-2014 08:42-0400 Systolic blood pressure 116 mm[Hg] Nichol Neal LPN Work Phone: [facility], [facility].; [facility]. Comment on above: Patient Position: Sitting; Cuff Location : Left Arm; Cuff Size: Standard 06-17-2013 17:34-0400 Body height 165.1 cm Debra Desir LPN [facility], [facility].; [place] [employer] [facility], [employer]. 06-17-2013 17:34-0400 Body mass index (BMI) [Ratio] 23.63 kg/m2 Debra Desir LPN [facility], [facility].; [place] [facility], [employer]. 06-17-2013 17:34-0400 Body surface area Derived from formula 1.71 m2 Debra Desir LPN [facility], [facility].; [employer], [employer]. 06-17-2013 17:34-0400 Body temperature 97.9 [degF] Debra Desir LPN [facility], [facility].; [employer]. Comment on above: Method: Tympanic 06-17-2013 17:34-0400 Body weight 64.41 kg Debra Desir LPN [facility], [facility].; [employer], [employer]. 06-17-2013 17:34-0400 Diastolic blood pressure 87 mm[Hg] Debra Desir LPN [facility], [facility].; [employer]. Comment on above: Patient Position: Sitting; Cuff Location : Left Arm; Cuff Size: Standard 06-17-2013 17:34-0400 Heart rate 75 /min Debra Desir LPN [facility], [employer].; [employer]. Comment on above: Pattern: Regular 06-17-2013 17:34-0400 Systolic blood pressure 138 mm[Hg] Debra Desir LPN [facility], [employer].; [employer]. Comment on above: Patient Position: Sitting; Cuff Location : Left Arm; Cuff Size: Standard 12-25-2012 17:32-0500 Body height 165.1 cm Coco Adams RN [facility] [employer]. 12-25-2012 17:32-0500 Body mass index (BMI) [Ratio] 23.63 kg/m2 Coco Adams RN [place] [employer] [facility].; [employer]. 12-25-2012 17:32-0500 Body surface area Derived from formula 1.71 m2 Coco Adams RN [place] [employer]. 12-25-2012 17:32-0500 Body temperature 98.5 [degF] Coco Adams RN [place] [employer]. Comment on above: Method: Tympanic 12-25-2012 17:32-0500 Body weight 64.41 kg Coco Adams RN [place] [employer]. 12-25-2012 17:32-0500 Diastolic blood pressure 85 mm[Hg] Coco Adams RN [place] [employer]. Comment on above: Patient Position: Sitting; Cuff Location : Left Arm; Cuff Size: Standard 12-25-2012 17:32-0500 Heart rate 89 /min Coco Adams RN [employer]. Comment on above: Pattern: Regular 12-25-2012 17:32-0500 Inhaled oxygen concentration 20 % Coco Adams RN [place] [employer]. Comment on above: Room air 12-25-2012 17:32-0500 Inhaled oxygen concentration 21 % Coco Adams RN [place] [employer]. Comment on above: Room air 12-25-2012 17:32-0500 SaO2% (BldA) [Mass fraction] 100 % Coco Adams RN [employer]. 12-25-2012 17:32-0500 Systolic blood pressure 140 mm[Hg] Coco Adams RN [place] [employer]. Comment on above: Patient Position: Sitting; Cuff Location : Left Arm; Cuff Size: Standard 09-30-2012 13:58-0500 Body height 165.1 cm Carlota Grace MD Work Phone: [employer]; [employer]. 09-30-2012 13:58-0500 Body mass index (BMI) [Ratio] 23.13 kg/m2 Carlota Grace MD Work Phone: [employer]; [employer]. 09-30-2012 13:58-0500 Body surface area Derived from formula 1.69 m2 Carlota Grace MD Work Phone: [employer]; [employer]. 09-30-2012 13:58-0500 Body temperature 98.8 [degF] Carlota Grace MD Work Phone: [employer]; [employer]. Comment on above: Method: Tympanic 09-30-2012 13:58-0500 Body weight 63.05 kg Carlota Grace MD Work Phone: [employer]; [employer]. 09-30-2012 13:58-0500 Diastolic blood pressure 72 mm[Hg] Carlota Grace MD Work Phone: [employer]; [employer]. Comment on above: Patient Position: Sitting; Cuff Location : Left Arm; Cuff Size: Standard 09-30-2012 13:58-0500 Heart rate 75 /min Carlota Grace MD Work Phone: [employer]; [employer]. Comment on above: Pattern: Regular 09-30-2012 13:58-0500 Systolic blood pressure 132 mm[Hg] Carlota Grace MD Work Phone: [employer]; [employer] Comment on above: Patient Position: Sitting; Cuff Location : Left Arm; Cuff Size: Standard Encounters Encounter Date Encounter Type Care Provider Facility Start: 05-26-2025 End: 05-26-2025 sarah Ward Facility:[facility] Start: 05-26-2025 End: 05-26-[address] Griselda Ward MD [facility] Start: 05-26-2025 End: 05-26-[address] Griselda Ward [facility] Work Phone: Start: 05-13-2025 End: 05-13-2025 ambulatory AWA DOUGLAS [facility] Start: 04-27-2025 End: 04-27-2025 ambulatory AWA DOUGLAS [facility] Start: 04-21-2025 End: 04-21-2025 Patient encounter procedure Eduardo Shook MD Work Phone: [employer]. Start: 04-21-2025 End: 04-21-2025 Periodic preventive med est patient 65yrs& older Eduardo Shook MD Work Phone: [employer]. Start: 04-13-2025 End: 04-13-2025 Orders Eduardo Shook MD Work Phone: [employer]. Start: 04-13-2025 End: 04-13-2025 ambulatory MIRIAM Masters WELDON [facility] Start: 04-07-2025 End: 04-07-2025 Historical Summary Eduardo Shook MD Work Phone: [employer]. Start: 03-09-2025 End: 03-09-2025 Office outpatient visit 15 minutes Eduardo Shook MD Work Phone: [employer]. Start: 02-03-2025 End: 02-03-2025 Orders Eduardo Shook MD Work Phone: [employer]. Start: 11-11-2024 Follow-up encounter Eduardo lainez MD Work Phone: [employer]. Start: 11-11-2024 End: 11-11-2024 Office outpatient visit 15 minutes Eduardo Shook MD Work Phone: [employer]. Start: 09-15-2024 End: 09-15-2024 ambulatory AWA DOUGLAS [facility] Start: 08-27-2024 End: 08-27-2024 ambulatory AWA DOUGLAS [facility] Start: 07-14-2024 ambulatory Facility:[facility] Start: 05-05-2024 End: 05-05-2024 Periodic preventive med est patient 65yrs& older Eduardo Shook MD Work Phone: [employer] Start: 05-05-2024 End: 05-05-2024 Patient encounter procedure Eduardo Shook MD Work Phone: [employer]; [employer] Start: 04-30-2024 End: 04-30-2024 Orders Eduardo Shook MD Work Phone: [facility] Start: 02-13-2024 End: 02-13-2024 Orders Eduardo Shook MD Work Phone: [facility] Start: 02-13-2024 End: 02-13-2024 Patient encounter procedure Eduardo Shook MD Work Phone: [facility] Start: 02-03-2024 End: 02-06-2024 Evaluation and management of inpatient EDUARDO SHOOK MD Facility:A Start: 02-03-2024 End: 02-06-2024 Evaluation and management of inpatient DR EDILBERTO ORR MD [facility] Start: 11-14-2023 End: 11-14-2023 Office outpatient visit 15 minutes Eduardo Shook MD Work Phone: [facility] Start: 11-08-2023 End: 11-08-2023 Periodic preventive med est patient 65yrs& older Eduardo Shook MD Work Phone: [facility] Start: 11-08-2023 End: 11-08-2023 Physical examination Eduardo Shook MD Work Phone: [facility]; [facility] Start: 10-08-2023 End: 10-08-2023 Orders Eduardo Shook MD Work Phone: [facility] Start: 09-24-2023 End: 09-24-2023 Orders Eduardo Shook MD Work Phone: [employer]. Start: 04-26-2023 End: 04-26-[address] Eduardo Shook Work Phone: [facility] Work Phone: Start: 04-26-2023 End: 04-26-[address] Eduardo Shook Work Phone: [facility] Start: 09-14-2020 End: 09-14-2020 Medication Eduardo Shook MD Work Phone: [employer]. Start: 09-13-2020 End: 09-13-2020 Patient encounter procedure Eduardo Shook MD Work Phone: [facility] Start: 08-20-2019 End: 08-20-2019 Office outpatient visit 15 minutes Eduardo Shook MD Work Phone: [facility] Start: 12-11-2017 End: 12-11-2017 Office outpatient visit 15 minutes Eduardo Shook MD Work Phone: [facility] Start: 02-09-2017 End: 02-12-2017 Periodic preventive med est patient 40-64yrs Eduardo Shook MD Work Phone: [employer]. Start: 01-04-2017 End: 01-04-2017 Orders Eduardo Shook MD Work Phone: [employer]. Start: 01-04-2017 End: 01-04-2017 Historical Summary Eduardo Shook MD Work Phone: [facility] Start: 01-01-2017 End: 01-01-2017 Patient encounter procedure Eduardo Shook MD Work Phone: [facility] Start: 09-09-2015 End: 09-09-2015 Office outpatient visit 10 minutes Eduardo Shook MD Work Phone: [facility] Start: 07-16-2015 End: 07-16-2015 Periodic preventive med est patient 40-64yrs Eduardo Shook MD Work Phone: [employer]. Start: 06-07-2015 End: 06-07-2015 Orders Eduardo Shook MD Work Phone: [employer]. Start: 05-19-2015 End: 05-19-2015 Orders Eduardo Shook MD Work Phone: [employer]. Start: 03-16-2014 End: 03-16-2014 Laboratory examination ordered as part of a routine general medical examination Eduardo Shook MD Work Phone: [employer]; [employer]. Start: 03-16-2014 End: 03-16-2014 Orders Eduardo Shook MD Work Phone: [facility] Start: 03-16-2014 End: 03-16-2014 Patient encounter procedure Eduardo Shook MD Work Phone: [employer]. Start: 02-10-2014 End: 02-10-2014 Orders Eduardo Shook MD Work Phone: [facility] Start: 06-17-2013 End: 06-17-2013 Patient encounter procedure Eduardo Shook MD Work Phone: [facility] Start: 12-25-2012 End: 12-25-2012 Patient encounter procedure Eduardo Shook MD Work Phone: [facility] Start: 09-30-2012 End: 09-30-2012 Patient encounter procedure Eduardo Shook MD Work Phone: [facility] Start: 09-30-2012 End: 09-30-2012 Routine general medical examination at a health care facility Eduardo Shook MD Work Phone: [facility]; [employer]. Start: 09-30-2012 End: 09-30-2012 Historical Summary Eduardo Shook MD Work Phone: [facility] Start: 09-23-2012 End: 09-23-2012 Orders Eduardo Shook MD Work Phone: [employer] [facility] Start: 09-20-2012 End: 09-20-2012 Orders Eduardo Shook MD Work Phone: [employer] [facility] Start: 08-08-2012 End: 08-08-2012 Orders Eduardo Shook MD Work Phone: [employer] [facility] Start: 10-02-2011 End: 10-02-2011 Laboratory examination ordered as part of a routine general medical examination Eduardo Shook MD Work Phone: [employer] [facility]; [employer]. Start: 10-02-2011 End: 10-02-2011 Orders Eduardo Shook MD Work Phone: [employer] [facility] Start: 07-03-2011 End: 07-03-2011 Historical Summary Eduardo Shook MD Work Phone: [employer] Start: 05-25-2011 End: 05-25-2011 Orders Eduardo Shook MD Work Phone: [employer] [facility] Laboratory examinati on ordered as part of a routine general medical examination Pastora Wallis [facility] [employer] [facility] [employer] [facility]. Routine general medi marc examination at a health care facility [facility]is [facility].; [employer] [facility]. Procedures Date Procedure Procedure Detail Performing Clinician Start: 04-21-2025 End: 04-20-2025 Adv care pln/ no alt dcsn mkr docd or refusal Eduardo Shook MD Work Phone: Start: 04-21-2025 End: 04-20-2025 Depression screening Eduardo Shook MD Work Phone: Start: 04-21-2025 End: 04-20-2025 Falls risk assessment documented Eduardo Shook MD Work Phone: Start: 04-21-2025 End: 04-20-2025 Pos clin depres scrn f/u doc Eduardo Shook MD Work Phone: Start: 04-21-2025 End: 04-20-2025 PPPS, subseq visit Eduardo Shook MD Work Phone: Start: 04-21-2025 End: 04-20-2025 Pt falls assess docd 2/> falls/fall w/injury/yr Eduardo Shook MD Work Phone: Start: 04-21-2025 End: 04-20-2025 Scr dep neg, no plan reqd Eduardo Shook MD Work Phone: Start: 04-13-2025 End: 04-13-2025 Lab findings surveillance Maru Mccabe LPN Comment on above: 103 Start: 04-13-2025 End: 04-13-2025 Lipid panel results documented & reviewed Maru Mccabe LPN Comment on above: TC 118 HDL 53 LDL 57 TRI 39 Start: 03-18-2025 End: 03-18-2025 Most Recent Cardio Report Ne Juan Blackninfa [place] Start: 09-09-2024 End: 09-09-2024 Most Recent Cardio Report Eduardo Shook MD Work Phone: Start: 05-05-2024 End: 05-05-2024 Adv care pln tlkd & alt dcsn maker docd Eduardo Shook MD Work Phone: Start: 05-05-2024 End: 05-05-2024 Depression screening Eduardo Shook MD Work Phone: Start: 05-05-2024 End: 05-05-2024 Falls risk assessment documented Eduardo Shook MD Work Phone: Start: 05-05-2024 End: 05-05-2024 PPPS, subseq visit Eduardo Shook MD Work Phone: Start: 05-05-2024 End: 05-05-2024 Pt falls assess docd w/o fall/injury past year Eduardo Shook MD Work Phone: Start: 05-05-2024 End: 05-05-2024 Scr dep neg, no plan reqd Eduardo Shook MD Work Phone: Start: 04-30-2024 End: 04-30-2024 Lab findings surveillance Bernadette antunez LPN Comment on above: 111 Start: 04-30-2024 End: 04-30-2024 Lipid panel results documented & reviewed Bernadette Rincon COMPUTER SYSTEMS MANAGER Start: 04-28-2024 End: 04-28-2024 Screening mammography Bernadette Rincon COMPUTER SYSTEMS MANAGER Comment on above: Normal. [place] Start: 02-05-2024 End: 02-05-2024 stents Bernadette Rincon LP N Start: 11-08-2023 End: 11-08-2023 Adv care pln/ no alt dcsn mkr docd or refusal Eduardo Shook MD Work Phone: Start: 11-08-2023 End: 11-08-2023 Depression screening Eduardo Shook MD Work Phone: Start: 11-08-2023 End: 11-08-2023 Falls risk assessment documented Eduardo Shook MD Work Phone: Start: 11-08-2023 End: 11-08-2023 Flu imm no admin doc talha Eduardo Villa Work Phone: Start: 11-08-2023 End: 11-08-2023 Initial preventive exam Eduardo Shook MD Work Phone: Start: 11-08-2023 End: 11-08-2023 Pos clin depres scrn f/u doc Eduardo Shook MD Work Phone: Start: 11-08-2023 End: 11-08-2023 Pt falls assess docd w/o fall/injury past year Eduardo Shook MD Work Phone: Start: 11-08-2023 End: 11-08-2023 Screening test visual acuity quantitative bilat Eduardo Shook MD Work Phone: Start: 10-05-2023 End: 10-05-2023 Lab findings surveillance Maru Mccabe LPN Start: 10-05-2023 End: 10-05-2023 Lipid panel results documented & reviewed Maru Mccabe LPN Start: 04-26-2023 Screening mammography Allen Shook Work Phone: Start: 04-05-2023 End: 04-05-2023 Screening mammography Eduardo Shook MD Work Phone: Comment on above: Normal. Start: 03-05-2023 End: 03-05-2023 Microscopic examination of cervical Papanicolaou smear Maru Mccabe JENNIFER Comment on above: Normal. [place] Start: 12-11-2017 End: 12-11-2017 Body mass index documented Eduardo Shook MD Work Phone: Start: 01-04-2017 End: 01-26-2017 Mammogram, screening Miriam Ross Work Phone: Start: 05-19-2015 End: 07-06-2015 Mammogram, screening Carlota Grace MD Work Phone: Start: 02-10-2014 End: 02-25-2014 Mammogram, screening Carlota Grace MD Work Phone: Start: 09-30-2012 End: 09-30-2012 Removal skn tags set and exhibit designer fibrq tags any area upw/15 Carlota Grace MD Work Phone: Start: 09-23-2012 End: 09-24-2012 Mammogram, screening Carlota Grace MD Work Phone: Start: 05-25-2011 End: 06-15-2011 Mammogram, screening Carlota Grace MD Work Phone: Ligation of fallopian tube M fortino Rincon LPN Ligation of fallopian tube Boston Shook MD Work Phone: Ligation of fallopian tube M fortino Rincon COMPUTER SYSTEMS MANAGER Tonsillectomy Bernadette antunez COMPUTER SYSTEMS MANAGER Tonsillectomy Eduardo Shook MD Work Phone: Tonsillectomy Bernadette antunez LPN Plan of Treatment Date Care Activity Detail Author Start: 09-29-2025 Patient encounter procedure Medical; [facility] Start: 29-Sep-2025 09:30-05:00 MD Eduardo Shook [facility]ment [facility] Start: 05-26-2025 MG Breast - bilateral Screening [facility] Start: 05-26-2025 Screening mammography SCRN MAMM (CAD)W/LIZBETH [facility] Start: 04-21-2025 Lipid panel LIPID PANEL (59032) Start: 21-Apr-2025 14:03-04:00 Request [employer] Start: 04-21-2025 Hemoglobin glycosylated a1c HEMOGLOBIN A1C* (60576) Start: 21-Apr-2025 14:03-04:00 Request [employer] Start: 04-21-2025 Comprehensive metabolic panel CMP w/ GFR* (75000) Start: 21-Apr-2025 14:03-04:00 Request [employer] Start: 04-21-2025 Oncology colorectal screening diego 10 dna markrs COLOGUARD COLON CANCER SCREENING USING STOOL DNA AT POINT OF CARE (67305) Start: 21-Apr-2025 Intent [employer] Start: 04-21-2025 Patient encounter procedure Medical; PHYSICAL - annual AWV [employer]. Start: 21-Apr-2025 09:10-04:00 MD Eduardo Shook Appointment Request [employer] Start: 11-11-2024 Patient encounter procedure [employer]. Start: 08-18-2024 Patient encounter procedure Medical; RTN OFFICE VISIT - 6 MOS RTN [employer] Start: 18-Aug-2024 10:20-04:00 MD Eduardo Shook Appointment Request [employer] Start: 08-06-2024 Comprehensive metabolic panel CMP w/ EGFR Start: 06-Aug-2024 Request [employer] Start: 08-06-2024 Lipid panel LIPID PANEL (41498) Start: 06-Aug-2024 Request [employer] Start: 08-06-2024 Nursing evaluation of patient and report Medical; Nurse visit - [facility] [employer] Start: 06-Aug-2024 08:20-04:00 NURSE, FLOAT Appointment Request [employer] Start: 04-30-2024 Comprehensive metabolic panel CMP w/ EGFR Start: 30-Apr-2024 08:26-04:00 Request [employer] Start: 04-30-2024 Lipid panel LIPID PANEL ([id number]) Start: 30-Apr-2024 08:26-04:00 Request [employer]. Start: 02-13-2024 Patient encounter procedure Medical; [facility] F/U - d/c [facility] /, 2 stents placed [employer]. Start: 13-Feb-2024 10:00-04:00 MD Eduardo Shook Appointment Request [employer] Start: 11-08-2023 Oncology colorectal screening diego 10 dna markrs COLOGUARD COLON CANCER SCREENING USING STOOL DNA AT POINT OF CARE (45115) Start: 08-Nov-2023 Intent [employer] Immunizations Immunization Date Immunization Notes Care Provider Fa cility 09-30-2012 influenza, seasonal, injectable Eduardo Shook MD Work Phone: [employer]; [employer]. 09-30-2012 tetanus toxoid, reduced diphtheria toxoid, and acellular pertussis vaccine, adsorbed Eduardo Shook MD Work Phone: [employer]; [employer]. Work Phone: 11-05-1999 tetanus and diphther ia toxoids, adsorbed, preservative free, for adult use (2 Lf of tetanus toxoid and 2 Lf of diphtheria toxoid) Eduardo Shook MD Work Phone: [employer] NEGATED: Highlighted row has not occurred!09-30-2012 influenza, seasonal, injectable Eduadro Shook MD Work Phone: [employer]; [employer]. Comment on above: VIS Given: * Inactiv ated Influenza Vaccine (06/15/09) * Inactivated Influenza Vaccine (05/30/11) * Influenza vaccine [id number], inactivated (05/06/2012) * VIS Given (Unspecified) NEGATED: Highlighted row has not occurred!09-30-2012 tetanus toxoid, reduced diphtheria toxoid, and acellular pertussis vaccine, adsorbed Eduardo Shook MD Work Phone: [facility] [employer] [facility]. Comment on above: VIS Given: * Tetanus /Diphtheria/(Pertussis) (Td/Tdap) (09/22/08) * Tetanus/Diptheria/Pertussis (Tdap/Td) 11/28/11 Payers Date Payer Category Payer Self-pay [id number] 2024 Medicare [id number] 2024 Medicare [id number] 1960 Unknown [id number] 1960 Unknown [id number] 1960 Unknown [id number] 1960 Unknown [id number] 1960 Unknown [id number] 1960 Unknown [id number] Unknown [id number] Unknown [facility] Unknown [id number] Unknown [id number] Social History Date Type Detail Facility Start: 04-26-2023 [facility] Start: 1960 Sex Assigned At Female [facility] Caffeine Use Caffeine Use [employer]; [employer] Current Work/Study Status: Current Work/Study Status: ; Full-time. [employer]; [facility] Primary Contro l Method: Primary Control Method: ; Tubal ligation. [facility]; [facility] Tobacco Use: Tobacco Use: ; N ever smoker. [facility]; [facility] Tubal ligation [facility]; [facility] Work Phone: Full-time [facility]; [facility] Work Phone: Start: 02-03-2024 End: 05-26-2025 Never smoked tobacco [facility] NEGATED: Highlighted row No Social History Information Available No Social History Information Available [facility]; [facility] Work Phone: Functional Status Date Assessment Result Facility 02-06-2024 Functional Status Room located n ear nursing station, Non-Slip footwear, Room check performed [facility] 02-06-2024 Functional Status [facility] 02-06-2024 Functional Status [facility] 02-06-2024 Functional Status [facility] 02-05-2024 Functional Status [facility] 02-05-2024 Functional Status 3pm-3am [facility] 02-05-2024 Functional Status Done [facility] 02-05-2024 Functional Status [facility] 02-05-2024 Functional Status [facility] 02-05-2024 Functional Status Ambulation in Room [facility] 02-04-2024 Functional Status [facility] 02-04-2024 Functional Status [facility] 02-04-2024 Functional Status Single level h ome, Other: basement [facility] 02-04-2024 Functional Status [facility] 02-04-2024 Functional Status NPO Status Maintained A [facility] 02-03-2024 Functional Status Sitting on edge of bed [facility] Mental Status Date Assessment Result Facility 02-06-2024 Mental Status Orientation Oriented x 4 [facility] 02-06-2024 Mental Status [facility] 02-06-2024 Mental Status [facility] 02-05-2024 Mental Status Oriented x 4 [facility] 02-05-2024 Mental Status [facility] Clinical Notes 02-03-2024 to 05-26-2025 Note Date & Type Note Facility 05-26-2025 Progress note [facility] 02-06-2024 Discharge summary Date of Service 02/06/2024 Discharge Diagnosis NSTEMI status post OM1 stent (02/04/2024) and RPL stent ( 02/05/2024) Obstructive coronary artery disease Hyperlipidemia Hospital Course 63-year-old female with no known cardiac illness came in for resting chest pain on Sunday and diagnosed with NSTEMI. Patient got ISABELA stent to OM1 and RPL. Remained asymptomatic for the past 24 hours. Denied chest pain, palpitation, dyspnea, orthopnea and PND. Upper extremity doppler is normal. Patient will be discharged home with dual antiplatelet therapy, statin and beta-dick. Cardiac catheterization 02/04/2024 Mid left main 60% Mid OM1 99% ISABELA stent Proximal RPL 90% Echocardiogram 02/04/2024 EF 50-55% Dyskinesia in the mid to apical anterior, mid apical anterolateral, mid inferolateral. Grade 1 diastolic dysfunction Allergies Augmentin (sweating, hallucinations) Consults No qualifying data available. Physical Exam Vitals and Measurements T: 36.5 C (Oral) TMIN: 36.4 C (Oral) TMAX: 36.9 C (Oral) HR: 97(Apical) RR: 18 BP: 110/78 SpO2: 95% Weight Dosing Weight: 58.4 kg (02/03/24) General Appearance: Patient comfortably lying on bed, not in acute distress Head: Normocephalic, atraumatic EENT: PERRLA, Neck: Supple, no JVD, no mass Cardiac: s1s2,RRR, no murmurs or rubs or gallops Lungs: Clear to auscultation bilaterally, no wheeze or rhonchi or crackles Abdomen: Soft , Nontender, no organomegaly, bowel sounds heard Musculoskeletal: Full ROM , no gross deformities Extremities: No rash or ulcers or pedal edema Neurological: Alert, oriented x 3, grossly no focal neurological deficits Skin: No rash or ulcers Code Status Code Status - Ordered -- 02/03/24 11:24:00 EDT, Full Code, Constant Order Admission Date 02/04/2024 Discharge Date 02/06/2024 Patient Instructions Ice pack over the right forearm for swelling. In case of worsening of the swelling, numbness or loss of sensation in right hand, please go to ER immediately. Medications New Prescription aspirin (aspirin 81 mg oral delayed release tablet)1 tab(s) by mouth once a day. Refills: 0. atorvastatin (Lipitor 40 mg oral tablet)1 tab(s) by mouth once a day. Refills: 11. metoprolol (metoprolol succinate 25 mg oral TABLET extended release)0.5 tab(s) by mouth once a day. Refills: 11. ticagrelor (ticagrelor 90 mg oral tablet)1 tab(s) by mouth every 12 hours. Refills: 11. Discontinued multivitamin (Multivitamin)1 tab(s) by mouth every day. Follow Up Follow Up with AWA CARTER MD When 03/10/2024 11:15 AM EDT Where: [address] [address]- [phone] Follow Up with AWA CARTER MD When Within 5 to 7 days Where: [address] [place] [address] [address] [place] [address]- [phone] Follow Up with [facility] cardiac rehab dept. will call in 1-2 weeks When In 2 weeks Follow Up with EDUARDO SHOOK When Within 1-2 days Where: [address] [place] [address] [place] [address] [phone] Business (1) Follow Up Appointments No qualifying data available. Follow Up Labs/Studies Discharge Labs No Follow-up Labs Discharge Studies No Follow-up Studies Discharge Diet No qualifying data available. Discharge Activity No qualifying data available. Condition on Discharge Fair Discharge Disposition Home Digitally Signed by JANNIE ADKINS MD on 02/06/2024 02:11 PM [facility] 02-06-2024 Hospital Discharge instructions Patient Education 02/06/2024 14:12:27 3- Heart Cath/PCI radial (08/2018)(CUSTOM) HEART CATHETERIZATION/PCI (radial) Discharge Instructions DIET Drink plenty of fluids for the next 48 hours to help your kidneys flush the heart cath dye out of your system ACTIVITY For the next 48 hours: Do not deep bend the wrist Do not lift, push, or pull anything over 5 pounds Do not use the hand/arm to support your weight when rising from a chair or bed Do not drive For the next 7 days: Do not submerse your procedure site in water Do not swim, wash dishes, or take tub baths You may write, eat, type, and shower WOUND CARE Keep a Band-Aid on your procedure site for the next 3-4 days Change the Band-Aid daily or if it gets wet/soiled AFTER YOU GO HOME, CALL YOUR DOCTOR FOR: Any increase in bruising or tenderness from the procedure site Any redness, pus, or other signs of infection at the site A temperature above 100.5 Severe pain at the site DIAL 911 AND RETURN TO THE HOSPITAL FOR: Any bleeding from the procedure site. The site may be bruised or tender, but it should not be bleeding at any time. If your site begins to bleed, hold firm pressure on it and dial 911 to return to the hospital Any increase in swelling at the procedure site. An increase in swelling could mean the area is bleeding under the skin. Hold firm pressure to the site and dial 911 to return to the hospital Document Released: 10/22/2006 Document Revised: 10/08/2013 Document Reviewed: 10/23/2014 [employer]Care Patient Information 2015 [employer]. This information is not intended to replace advice given to you by your health care provider. Make sure you discuss any questions you have with your health care provider. Follow Up Care 02/02/2024 22:29:19 With:AWA CARTER MD Address: [address] [place] [address] [address] [place] [address]- [phone] When:5 to 7 days With:AWA CARTER MD Address: [address] [place] [address] [address] [place] [address]- [phone] When:03/10/2024 11:15:00 With:[facility] cardiac rehab dept. will call in 1-2 weeks Address:Unknown When:Within 2 Week(s) With:EDUARDO SHOOK Address: [address] [place] [address]- [phone] Business (1) When:1-2 days [facility] 02-06-2024 Note Discharge Instructions Thank you for allowing [facility] to assist you with your healthcare needs. The following is important discharge information regarding your hospital visit. Your Care Team EDUARDO SHOOK MD What to do next Scheduled Follow-Up Appointments Appointment Type When Where Contact [facility] Follow Up 03/10/2024 11:15 AM EDT [facility] Follow Up Appointments Follow Up with AWA CARTER MD When 03/10/2024 11:15 AM EDT Where: [address] [place] [address]- [phone] Follow Up with AWA CARTER MD When Within 5 to 7 days Where: [address] [place] [address]- [phone] Follow Up with [facility] cardiac rehab dept. will call in 1-2 weeks When In 2 weeks Follow Up with EDUARDO SHOOK When Within 1-2 days Where: [address] [place] [place] [address] [phone] Business (1) The Following Activity and Diet Have Been Ordered for You Discharge Activity - Ordered -- Activity As Tolerated, 02/06/24 14:11:00 EDT Discharge Diet - Ordered -- Type of Diet: Cardiac, 02/06/24 14:11:00 EDT The Following Equipment Has Been Ordered for You No qualifying data available. The Following Treatments Have Been Ordered for You Discharge Labs Discharge Outpatient Labwork - Ordered -- BMP, recent cath, follow-up within: 5-7 days, Results Notify to: AWA CARTER MD, 02/06/24 14:11:00 EDT Discharge Radiology No qualifying data available. Other Therapies No qualifying data available. Post Acute Orders No qualifying data available. Someone Will Contact You Regarding These Home Health Referrals No home referrals have been ordered for you. No one will call you. Allergies Augmentin (sweating, hallucinations) Medications Please ask your primary doctor or pharmacist before taking any other medication not listed, including over the counter drugs, herbal medications, vitamins and or supplements as they may interact with your home medications. What How Much When Instructions Last Dose New aspirin (aspirin 81 mg oral delayed release tablet) 1 tab(s) by mouth Once a day Pickup at [facility] New atorvastatin (Lipitor 40 mg oral tablet) 1 tab(s) by mouth Once a day Refills: 11 Pickup at [facility] New metoprolol (metoprolol succinate 25 mg oral TABLET extended release) 0.5 tab(s) by mouth Once a day Refills: 11 Pickup at [facility] New ticagrelor (ticagrelor 90 mg oral tablet) 1 tab(s) by mouth Every 12 hours Refills: 11 Pickup at [facility] Pharmacy Information [facility]: [address] [place] [address] [phone] What How Much When Comments Stop Taking multivitamin (Multivitamin) 1 tab(s) by mouth Every day Please take this list to your next doctor s visit. Bring all medications you take, including over the counter medications, herbals and other supplements with you to your doctor s visit. Patients and families are reminded to discard old lists and to update any records with all medication providers or retail pharmacies. Medication Leaflets atorvastatin (a TOR va sta tin) Atorvaliq, Lipitor What is the most important information I should know about atorvastatin? You should not take atorvastatin if you have liver disease or cirrhosis. Atorvastatin can cause the breakdown of muscle tissue, which can lead to kidney failure. Call your doctor right away if you have unexplained muscle pain, tenderness, or weakness especially if you also have fever, unusual tiredness, or dark urine. What is atorvastatin? Atorvastatin is used together with diet to lower blood levels of 'bad' cholesterol (low-density lipoprotein, or LDL), to increase levels of 'good' cholesterol (high-density lipoprotein, or HDL), and to lower triglycerides (a type of fat in the blood). Atorvastatin is used to lower the risk of stroke, heart attack, or other heart complications in adults with or without type 2 diabetes or heart disease or other risk factors. Atorvastatin is also used alone, or along with diet, or with other cholesterol-lowering medications in adults and children aged 10 years and older with an inherited condition that causes high levels of bad cholesterol. Atorvastatin may also be used for purposes not listed in this medication guide. What should I discuss with my healthcare provider before taking atorvastatin? You should not use atorvastatin if you are allergic to it, or if you have liver failure or cirrhosis. Tell your doctor if you have or have ever had: muscle pain or weakness; diabetes; stroke; a thyroid disorder; a habit of drinking more than 2 alcoholic beverages per day; or kidney disease. Atorvastatin can cause the breakdown of muscle tissue, which can lead to kidney failure. This happens more often in women, in older adults, or people who have kidney disease or poorly controlled hypothyroidism (underactive thyroid). Atorvastatin may harm an unborn baby. Tell your doctor if you are . Ask a doctor if it is safe to breastfeed while using this medicine. How should I take atorvastatin? Follow all directions on your prescription label and read all medication guides or instruction sheets. Your doctor may occasionally change your dose. Use the medicine exactly as directed. Do not change your dose or stop taking any of your medications without your doctor's advice. Atorvastatin is usually taken once per day. Follow your doctor's instructions. You may take atorvastatin tablet with or without food. Take atorvastatin liquid medicine on an empty stomach, at least 1 hour before a meal or 2 hours after a meal. It may take up to 2 weeks before your cholesterol levels improve, and you may need frequent blood tests. Even if you have no symptoms, tests can help your doctor determine if this medicine is effective. Shake the oral suspension (liquid). Measure a dose with the supplied measuring device (not a kitchen spoon). Your treatment may also include diet, exercise, weight control, and blood tests. Store at room temperature away from moisture, heat, and light. Throw away in the trash any unused liquid 60 days after opening the bottle. What happens if I miss a dose? Take the medicine as soon as you can, but skip the missed dose if you are more than 12 hours late for the dose. Do not take two doses at one time. What happens if I overdose? Seek emergency medical attention or call the Poison Help line at . What should I avoid while taking atorvastatin? Avoid eating foods high in fat or cholesterol, or atorvastatin will not be as effective. Drinking alcohol may increase your risk of liver damage. Grapefruit may interact with atorvastatin and cause side effects. Avoid consuming grapefruit products and drinking more than 1.2 liters of grapefruit juice each day. What are the possible side effects of atorvastatin? Get emergency medical help if you have signs of an allergic reaction (hives, difficult breathing, swelling in your face or throat) or a severe skin reaction (fever, sore throat, burning eyes, skin pain, red or purple skin rash with blistering and peeling). Atorvastatin can cause the breakdown of muscle tissue, which can lead to kidney failure. Call your doctor right away if you have unexplained muscle pain, tenderness, or weakness especially if you also have fever, unusual tiredness, or dark urine. Muscle problems may be more likely in older adults and those who have kidney problems, thyroid problems, or take certain other medicines. Also call your doctor at once if you have: muscle weakness in your hips, shoulders, neck, and back; trouble lifting your arms, trouble climbing or standing; liver problems--loss of appetite, stomach pain (upper right side), tiredness, itching, dark urine, mal-colored stools, jaundice (yellowing of the skin or eyes); kidney problems--swelling, urinating less, feeling tired or short of breath; or high blood sugar--increased thirst, increased urination, dry mouth, fruity breath odor. Common side effects may include: pain in your bones, spine, joints, or muscles; pain and burning when you urinate, painful urination; muscle spasms; upset stomach; trouble sleeping; stuffy nose, runny nose, sore throat; diarrhea, nausea; or pain in your arms or legs. This is not a complete list of side effects and others may occur. Call your doctor for medical advice about side effects. You may report side effects to FDA at 8-160-GTE-1607. What other drugs will affect atorvastatin? Sometimes it is not safe to use certain medicines at the same time. Some drugs can affect your blood levels of other drugs you use, which can increase risk of serious muscle problems or make the medicines less effective. Tell your doctor about all your current medicines. Many drugs can affect atorvastatin, especially: other cholesterol lowering medicine--gemfibrozil, niacin, fenofibrate, fenofibric acid, and others; colchicine; antibiotic or antifungal medicine--rifampin, erythromycin, clarithromycin, itraconazole, ketoconazole, posaconazole, and voriconazole; control pills; medicine to prevent organ transplant rejection; or antiviral medicine to treat hepatitis C or HIV. This list is not complete and many other drugs may affect atorvastatin. This includes prescription and ccrj-czl-qyzkusy medicines, vitamins, and herbal products. Not all possible drug interactions are listed here. Where can I get more information? Your doctor or pharmacist can provide more information about atorvastatin. Remember, keep this and all other medicines out of the reach of children, never share your medicines with others, and use this medication only for the indication prescribed. Every effort has been made to ensure that the information provided by [employer]. [employer]') is accurate, up-to-date, and complete, but no guarantee is made to that effect. Drug information contained herein may be time sensitive. [employer] information has been compiled for use by healthcare practitioners and consumers in the [place] and therefore [employer] does not warrant that uses outside of the [place] are appropriate, unless specifically indicated otherwise. [employer] drug information does not endorse drugs, diagnose patients or recommend therapy. [employer] drug information is an informational resource designed to assist licensed healthcare practitioners in caring for their patients and/or to serve consumers viewing this service as a supplement to, and not a substitute for, the expertise, skill, knowledge and judgment of healthcare practitioners. The absence of a warning for a given drug or drug combination in no way should be construed to indicate that the drug or drug combination is safe, effective or appropriate for any given patient. [employer] does not assume any responsibility for any aspect of healthcare administered with the aid of information [employer] provides. The information contained herein is not intended to cover all possible uses, directions, precautions, warnings, drug interactions, allergic reactions, or adverse effects. If you have questions about the drugs you are taking, check with your doctor, nurse or pharmacist. Copyright 3022-1076 [employer]. Version: 23.. Revision Date: 04/26/2023. ticagrelor (abby KA grel or) Brilinta (ticagrelor) What is the most important information I should know about ticagrelor? You should not use ticagrelor if you have any active bleeding or a history of bleeding in the brain. Do not use this medicine just before heart bypass surgery. Ticagrelor may cause you to bleed more easily, which can be severe or life-threatening. Call your doctor or seek emergency medical attention if you have bleeding that will not stop, black or bloody stools, red or pink urine, or if you cough up blood or vomit that looks like coffee grounds. Tell your doctor about all your current medicines and any you start or stop using. Many drugs can interact with ticagrelor. Do not stop taking ticagrelor without first talking to your doctor, even if you have signs of bleeding. Stopping ticagrelor may increase your risk of a heart attack or stroke. What is ticagrelor? Ticagrelor is used to lower your risk of heart attack, stroke, or due to a blocked artery or a prior heart attack. Ticagrelor is also used to lower your risk of blood clots if you have coronary artery disease (decreased blood flow to the heart) and have been treated with stents to open clogged arteries. Ticagrelor is also used to lower your risk of a first heart attack or stroke if you have decreased blood flow to the heart. Ticagrelor is also used to lower the risk of stroke and in adults with a blockage or decreased blood flow in an artery that supplies blood to the brain. Ticagrelor is usually given together with low-dose aspirin. Carefully follow your doctor's dosing instructions. Using too much aspirin can make ticagrelor less effective. Ticagrelor may also be used for purposes not listed in this medication guide. What should I discuss with my healthcare provider before taking ticagrelor? You should not use ticagrelor if you are allergic to it, or if you have: any active bleeding; or a history of bleeding in the brain (such as from a head injury). Tell your doctor if you have ever had: a stroke; heart problems; a surgery or bleeding injury; bleeding problems; a stomach ulcer or colon polyps; liver disease; or asthma, COPD (chronic obstructive pulmonary disorder) or other breathing problem. It is not known whether this medicine will harm an unborn baby. Tell your doctor if you are or plan to become . You should not breastfeed while using ticagrelor. How should I take ticagrelor? Follow all directions on your prescription label and read all medication guides or instruction sheets. Ticagrelor is taken together with aspirin. Use these medicines exactly as directed. Do not take more aspirin than your doctor has prescribed. Taking too much aspirin can make ticagrelor less effective. Take ticagrelor at the same times each day, with or without food. If you cannot swallow a tablet whole, crush the pill and mix it with water. Stir and drink this mixture right away. Add more water to the glass, stir, and drink right away. Ticagrelor keeps your blood from coagulating (clotting) and can make it easier for you to bleed, even from a minor injury. Contact your doctor or seek emergency medical attention if you have any bleeding that will not stop. To prevent excessive bleeding, you may need to stop using ticagrelor for a short time before a surgery, medical procedure, or dental work. Any healthcare provider who treats you should know that you are taking ticagrelor. Do not stop taking ticagrelor without first talking to your doctor, even if you have signs of bleeding. Stopping the medicine could increase your risk of a heart attack or stroke. This medicine may affect medical testing for platelets in your blood and you may have false results. Tell the laboratory staff that you use ticagrelor. Store at room temperature away from moisture and heat. What happens if I miss a dose? Skip the missed dose and use your next dose at the regular time. Do not use two doses at one time. What happens if I overdose? Seek emergency medical attention or call the Poison Help line at . Overdose can cause excessive bleeding. What should I avoid while taking ticagrelor? Drinking alcohol while taking aspirin can increase your risk of stomach bleeding. Avoid activities that may increase your risk of bleeding or injury. Use extra care to prevent bleeding while shaving or brushing your teeth. While taking ticagrelor with aspirin, avoid using medicines for pain, fever, swelling, or cold/flu symptoms. They may contain ingredients similar to aspirin (such as salicylates, ibuprofen, ketoprofen, or naproxen). Taking certain products together can cause you to get too much aspirin which can increase your risk of bleeding. What are the possible side effects of ticagrelor? Get emergency medical help if you have signs of an allergic reaction: hives; difficult breathing; swelling of your face, lips, tongue, or throat. Call your doctor at once if you have: slow heartbeats; nosebleeds, or any bleeding that will not stop; shortness of breath even with mild exertion or while lying down; easy bruising, unusual bleeding, purple or red spots under your skin; red, pink, or brown urine; black, bloody, or tarry stools; or coughing up blood or vomit that looks like coffee grounds. Common side effects may include: bleeding; or shortness of breath. This is not a complete list of side effects and others may occur. Call your doctor for medical advice about side effects. You may report side effects to FDA at 1-033-HHK-2852. What other drugs will affect ticagrelor? Sometimes it is not safe to use certain medications at the same time. Some drugs can affect your blood levels of other drugs you take, which may increase side effects or make the medications less effective. Tell your doctor about all your current medicines. Many drugs can affect ticagrelor, especially: antifungal medicine; antiviral medicine to treat HIV or AIDS; a blood thinner; cholesterol medication; heart or blood pressure medication; opioid medication; seizure medicine; or tuberculosis medicine. This list is not complete and many other drugs may affect ticagrelor. This includes prescription and juik-ljl-ylgbgfd medicines, vitamins, and herbal products. Not all possible drug interactions are listed here. Where can I get more information? Your pharmacist can provide more information about ticagrelor. Remember, keep this and all other medicines out of the reach of children, never share your medicines with others, and use this medication only for the indication prescribed. Every effort has been made to ensure that the information provided by [employer]. [employer]') is accurate, up-to-date, and complete, but no guarantee is made to that effect. Drug information contained herein may be time sensitive. [employer] information has been compiled for use by healthcare practitioners and consumers in the [place] and therefore [employer] does not warrant that uses outside of the [place] are appropriate, unless specifically indicated otherwise. [employer]'s drug information does not endorse drugs, diagnose patients or recommend therapy. [facility] [employer] drug information is an informational resource designed to assist licensed healthcare practitioners in caring for their patients and/or to serve consumers viewing this service as a supplement to, and not a substitute for, the expertise, skill, knowledge and judgment of healthcare practitioners. The absence of a warning for a given drug or drug combination in no way should be construed to indicate that the drug or drug combination is safe, effective or appropriate for any given patient. [facility] does not assume any responsibility for any aspect of healthcare administered with the aid of information [facility] provides. The information contained herein is not intended to cover all possible uses, directions, precautions, warnings, drug interactions, allergic reactions, or adverse effects. If you have questions about the drugs you are taking, check with your doctor, nurse or pharmacist. Copyright 4015-2954 [employer]. Version: 5.01. Revision Date: 11/26/2020. aspirin (oral) ( pir in) Aspi-Cor, Meghan Plus, Durlaza, Ecotrin, Miniprin, Vazalore What is the most important information I should know about aspirin? Aspirin can cause Marla's syndrome, a serious and sometimes fatal condition in children. What is aspirin? Aspirin is a salicylate (kh-RWG-yu-ate) that is used to treat pain, and reduce fever or inflammation. Aspirin is sometimes used to treat or prevent heart attacks, strokes, and chest pain (angina). Aspirin should be used for these conditions only under the supervision of a doctor. Aspirin may also be used for purposes not listed in this medication guide. What should I discuss with my healthcare provider before taking aspirin? Using aspirin in a child or teenager with flu symptoms or chickenpox can cause a serious or fatal condition called Marla's syndrome. You should not use aspirin if you are allergic to it, or if you have: a recent history of stomach or intestinal bleeding; a bleeding disorder such as hemophilia; or if you have ever had an asthma attack or severe allergic reaction after taking aspirin or an NSAID (non-steroidal anti-inflammatory drug). Tell your doctor if you have ever had: asthma or seasonal allergies; stomach ulcers; liver disease; kidney disease; a bleeding or blood clotting disorder; gout; or heart disease, high blood pressure, or congestive heart failure. Taking aspirin during late may cause bleeding in the mother or the baby during delivery. Tell your doctor if you are or plan to become . You should not breastfeed while using this medicine. How should I take aspirin? Use exactly as directed on the label, or as prescribed by your doctor. Always follow directions on the medicine label about giving aspirin to a child. Take with food if aspirin upsets your stomach. You must chew the chewable tablet before you swallow it. Do not crush, chew, break, or open an enteric-coated or delayed/extended-release pill. Swallow it whole. Tell your doctor if you have a planned surgery. Store at room temperature away from moisture and heat. Do not use aspirin if you smell a strong vinegar odor in the aspirin bottle. The medicine may no longer be effective. What happens if I miss a dose? Aspirin is used when needed. If you are on a dosing schedule, skip any missed dose. Do not use two doses at one time. What happens if I overdose? Seek emergency medical attention or call the Poison Help line at . Overdose may cause stomach pain, vomiting, diarrhea, vision or hearing problems, fast or slow breathing, or confusion. What should I avoid while taking aspirin? Avoid alcohol. Heavy drinking can increase your risk of stomach bleeding. Avoid taking ibuprofen if you take aspirin to prevent stroke or heart attack. Ibuprofen can make aspirin less effective in protecting your heart and blood vessels. Ask your doctor how far apart your doses should be. Ask a doctor or pharmacist before using other medicines for pain, fever, swelling, or cold/flu symptoms. They may contain ingredients similar to aspirin (such as magnesium salicylate, ibuprofen, ketoprofen, or naproxen). What are the possible side effects of aspirin? Get emergency medical help if you have signs of an allergic reaction: hives; difficult breathing; swelling of your face, lips, tongue, or throat. Stop using aspirin and call your doctor at once if you have: ringing in your ears, confusion, hallucinations, rapid breathing, seizure (convulsions); severe nausea, vomiting, or stomach pain; bloody or tarry stools, coughing up blood or vomit that looks like coffee grounds; fever lasting longer than 3 days; or swelling, or pain lasting longer than 10 days. Common side effects may include: upset stomach, heartburn; drowsiness; or mild headache. This is not a complete list of side effects and others may occur. Call your doctor for medical advice about side effects. You may report side effects to FDA at 2-817-JND-6581. What other drugs will affect aspirin? Ask your doctor before using aspirin if you take an antidepressant. Taking certain antidepressants with aspirin may cause you to bruise or bleed easily. Ask a doctor or pharmacist before using aspirin with any other medications, especially: a blood thinner (warfarin, Coumadin, Jantoven), or other medication used to prevent blood clots; or other salicylates such as Nuprin Backache Caplet, Kaopectate, KneeRelief, Pamprin Cramp Formula, Pepto-Bismol, Tricosal, Trilisate, and others. This list is not complete. Other drugs may affect aspirin, including prescription and kslz-vwf-whbrjpu medicines, vitamins, and herbal products. Not all possible drug interactions are listed here. Where can I get more information? Your pharmacist can provide more information about aspirin. Remember, keep this and all other medicines out of the reach of children, never share your medicines with others, and use this medication only for the indication prescribed. Every effort has been made to ensure that the information provided by [employer]. [employer] is accurate, up-to-date, and complete, but no guarantee is made to that effect. Drug information contained herein may be time sensitive. [employer] information has been compiled for use by healthcare practitioners and consumers in the [place] and therefore [employer] does not warrant that uses outside of the [place] are appropriate, unless specifically indicated otherwise. [employer] drug information does not endorse drugs, diagnose patients or recommend therapy. [employer] drug information is an informational resource designed to assist licensed healthcare practitioners in caring for their patients and/or to serve consumers viewing this service as a supplement to, and not a substitute for, the expertise, skill, knowledge and judgment of healthcare practitioners. The absence of a warning for a given drug or drug combination in no way should be construed to indicate that the drug or drug combination is safe, effective or appropriate for any given patient. [employer] does not assume any responsibility for any aspect of healthcare administered with the aid of information [employer] provides. The information contained herein is not intended to cover all possible uses, directions, precautions, warnings, drug interactions, allergic reactions, or adverse effects. If you have questions about the drugs you are taking, check with your doctor, nurse or pharmacist. Copyright 8387-7289 [employer]. Version: 18.01. Revision Date: 05/28/2023. metoprolol (oral/injection) (me TOE pro lol) Kapspargo Sprinkle, Lopressor, Metoprolol Succinate ER, Metoprolol Tartrate, Toprol-XL What is the most important information I should know about metoprolol? You should not use this medicine if you have a serious heart problem (heart block, sick sinus syndrome, slow heart rate), severe circulation problems, severe heart failure, or a history of slow heart beats that caused fainting. What is metoprolol? Metoprolol is a beta-dick that affects the heart and circulation (blood flow through arteries and veins). Metoprolol is used to treat angina (chest pain) and hypertension (high blood pressure). It is also used to lower your risk of or needing to be hospitalized for heart failure. Metoprolol injection is used during the early phase of a heart attack to lower the risk of . Metoprolol may also be used for other purposes not listed in this medication guide. What should I discuss with my healthcare provider before taking metoprolol? You should not use this medicine if you are allergic to metoprolol, or other beta-blockers (atenolol, carvedilol, labetalol, nadolol, nebivolol, propranolol, sotalol, and others), or if you have: a serious heart problem such as heart block, sick sinus syndrome, or slow heart rate; severe circulation problems; severe heart failure (that required you to be in the hospital); or a history of slow heart beats that have caused you to faint. Tell your doctor if you have ever had: asthma, chronic obstructive pulmonary disease (COPD), sleep apnea, or other breathing disorder; diabetes (taking metoprolol may make it harder for you to tell when you have low blood sugar); liver disease; congestive heart failure; problems with circulation (such as Raynaud's syndrome); a thyroid disorder; or pheochromocytoma (tumor of the adrenal gland). Do not give this medicine to a child without medical advice. Tell your doctor if you are or plan to become . It is not known whether metoprolol will harm an unborn baby. However, having high blood pressure during may cause complications such as diabetes or eclampsia (dangerously high blood pressure that can lead to medical problems in both mother and baby). The benefit of treating hypertension may outweigh any risks to the baby. Ask a doctor before using this medicine if you are breast-feeding. Metoprolol can pass into breast milk and may cause dry skin, dry mouth, diarrhea, constipation, or slow heartbeats in your baby. How should I take metoprolol? Follow all directions on your prescription label and read all medication guides or instruction sheets. Your doctor may occasionally change your dose. Use the medicine exactly as directed. Metoprolol should be taken with a meal or just after a meal. Take the medicine at the same time each day. Swallow the capsule whole and do not crush, chew, break, or open it. A Toprol XL tablet can be divided in half if your doctor has told you to do so. Swallow the half-tablet whole, without chewing or crushing. Measure liquid medicine carefully. Use the dosing syringe provided, or use a medicine dose-measuring device (not a kitchen spoon). You will need frequent medical tests, and your blood pressure will need to be checked often. If you need surgery, tell the surgeon ahead of time that you are using metoprolol. You should not stop using metoprolol suddenly. Stopping suddenly may make your condition worse. If you have high blood pressure, keep using this medicine even if you feel well. High blood pressure often has no symptoms. You may need to use metoprolol for the rest of your life. Store at room temperature away from moisture and heat. Metoprolol injection is given as an infusion into a vein. A healthcare provider will give you this injection in a medical setting where your heart and blood pressure can be monitored. Metoprolol injections are given for only a short time before switching you to the oral form of this medicine. What happens if I miss a dose? Skip the missed dose and use your next dose at the regular time. Do not use two doses at one time. What happens if I overdose? Seek emergency medical attention or call the Poison Help line at . What should I avoid while taking metoprolol? Avoid driving or hazardous activity until you know how this medicine will affect you. Your reactions could be impaired. Drinking alcohol can increase certain side effects of metoprolol. What are the possible side effects of metoprolol? Get emergency medical help if you have signs of an allergic reaction: hives; difficulty breathing; swelling of your face, lips, tongue, or throat. Call your doctor at once if you have: very slow heartbeats; a light-headed feeling, like you might pass out; shortness of breath (even with mild exertion), swelling, rapid weight gain; or cold feeling in your hands and feet. Common side effects may include: dizziness, tired feeling; depression, confusion, memory problems; nightmares, trouble sleeping; diarrhea; or mild itching or rash. This is not a complete list of side effects and others may occur. Call your doctor for medical advice about side effects. You may report side effects to FDA at 7-012-ERX-6341. What other drugs will affect metoprolol? Tell your doctor about all your current medicines. Many drugs can affect metoprolol, especially: any other heart or blood pressure medications; epinephrine (Epi-Pen); an antidepressant; an ergot medicine--dihydroergotamine, ergonovine, ergotamine, methylergonovine; or an MAO inhibitor--isocarboxazid, linezolid, phenelzine, rasagiline, selegiline, tranylcypromine. This list is not complete and many other drugs may affect metoprolol. This includes prescription and iaoh-hpw-ijektjv medicines, vitamins, and herbal products. Not all possible drug interactions are listed here. Where can I get more information? Your pharmacist can provide more information about metoprolol. Remember, keep this and all other medicines out of the reach of children, never share your medicines with others, and use this medication only for the indication prescribed. Every effort has been made to ensure that the information provided by [employer]. ('[employer]') is accurate, up-to-date, and complete, but no guarantee is made to that effect. Drug information contained herein may be time sensitive. [employer] information has been compiled for use by healthcare practitioners and consumers in the [place] and therefore [employer] does not warrant that uses outside of the [place] are appropriate, unless specifically indicated otherwise. [employer]'s drug information does not endorse drugs, diagnose patients or recommend therapy. [employer] drug information is an informational resource designed to assist licensed healthcare practitioners in caring for their patients and/or to serve consumers viewing this service as a supplement to, and not a substitute for, the expertise, skill, knowledge and judgment of healthcare practitioners. The absence of a warning for a given drug or drug combination in no way should be construed to indicate that the drug or drug combination is safe, effective or appropriate for any given patient. [facility] does not assume any responsibility for any aspect of healthcare administered with the aid of information [facility] provides. The information contained herein is not intended to cover all possible uses, directions, precautions, warnings, drug interactions, allergic reactions, or adverse effects. If you have questions about the drugs you are taking, check with your doctor, nurse or pharmacist. Copyright 8322-3272 [facility] [employer]. Version: 19.. Revision Date: 06/13/2023. Education Materials HEART CATHETERIZATION/PCI (radial) Discharge Instructions DIET Drink plenty of fluids for the next 48 hours to help your kidneys flush the heart cath dye out of your system ACTIVITY For the next 48 hours: Do not deep bend the wrist Do not lift, push, or pull anything over 5 pounds Do not use the hand/arm to support your weight when rising from a chair or bed Do not drive For the next 7 days: Do not submerse your procedure site in water Do not swim, wash dishes, or take tub baths You may write, eat, type, and shower WOUND CARE Keep a Band-Aid on your procedure site for the next 3-4 days Change the Band-Aid daily or if it gets wet/soiled AFTER YOU GO HOME, CALL YOUR DOCTOR FOR: Any increase in bruising or tenderness from the procedure site Any redness, pus, or other signs of infection at the site A temperature above 100.5 Severe pain at the site DIAL 911 AND RETURN TO THE HOSPITAL FOR: Any bleeding from the procedure site. The site may be bruised or tender, but it should not be bleeding at any time. If your site begins to bleed, hold firm pressure on it and dial 911 to return to the hospital Any increase in swelling at the procedure site. An increase in swelling could mean the area is bleeding under the skin. Hold firm pressure to the site and dial 911 to return to the hospital Document Released: 10/22/2006 Document Revised: 10/08/2013 Document Reviewed: 10/23/2014 ExitCare Patient Information 2015 [facility], [facility]. This information is not intended to replace advice given to you by your health care provider. Make sure you discuss any questions you have with your health care provider. Additional Information VACCINATE! IT SAVES LIVES! Members of the community who have not yet received the COVID-19 vaccine and would like to receive it can visit one of [facility] vaccine clinics. There are many vaccine clinic locations within the [facility]. For locations and available times, please visit [email or web address].uti o.[email or web address] It is important to note that some COVID mobile vaccine clinics are held outdoors and may be canceled in rainy or stormy conditions. To learn more about pediatric vaccinations (ages 5-11), we invite you to visit the [employer] webpage. https://www.Flashstocks.org/pag es/4236-Jaehj-Rkeqexbbfos-Frequent iu-Mcngb-Tkajaghei.html To learn more about the COVID-19 vaccine, we invite you to visit the CDC website for a list of frequently asked questions.https://www.cdc.gov/murali navirus/2019-ncov/vaccines/faq.htm l [facility] Patient Portal Access Instructions: Stay connected with your healthcare team and access your personal medical information anytime with the [facility] Patient Portal. Please follow the directions below to create your [facility] account: 1.Access the email account you provided upon registration to the hospital/physician office.2.Look for an invitation email from [facility].3.Open the email and access the invitation link: Accept Invitation to [employer].4.Fill in the required hernandez to create your account. To access your account, visit [employer]. Click the blue button labeled Access Patient Portal and then log in with the username and password that you created in the steps above. You will be able to view your test results, lab results, a summary of your visits, upcoming appointments and more. There is also a convenient messaging option where you can send secure messages to your provider. In addition, you will have the ability to download any documents or summaries to your computer and/or send the information securely to a physician. Remember that your healthcare information is confidential, so carefully consider who you will allow to register on the [facility] for access to your information. You can also access the [facility] on the [place] [employer] scott. Simply click on Patient Portal and then log into your account. If you would like to receive a full copy of your medical records, please contact the [facility] Medical Records Department by calling [phone], Sunday through Sunday between 8 a.m. and 4:30 p.m. HOW TO SAFELY DISPOSE OF PRESCRIPTION MEDICATIONS Please use one of the following methods to safely dispose of your unused medications. 1.Use a drug disposal kit: the drug disposal pouch allows you to safely discard your old and unused drugs. Ask your nurse to give you one when you are discharged.2.Visit a local take-back location: Many local pharmacies and police departments have programs that collect old and unwanted prescription drugs. Call your local pharmacy or go to http://Xiami Radio/8R0Ia2n to find one close to you.3.Make use of household items: Use cat litter or old coffee grounds to dispose medications if other options are not available. Mix your drugs with these household products, seal them in an airtight container and throw it into the garbage. Call [facility]: [phone] to be sure your drugs can be disposed of in this way. Some medicines may require a different approach.4.Never flush your medications down the toilet. IF YOU HAVE BEEN PRESCRIBED AN OPIOID FOR PAIN If you have been prescribed an opioid (such as hydrocodone, oxycodone or morphine), it is critical to understand the possible side effects and risks of opioid pain medications. Even when taken as directed, opioids can have several side effects including: Tolerance, meaning you might need to take more of a medication for the same pain relief. Nausea, vomiting and/or constipation. Sleepiness, dizziness, dry mouth, confusion, depression or itching. Physical dependence, meaning you have withdrawal symptoms when a medication is stopped, can develop within a few days. KNOW YOUR RESPONSIBILITIES It is important to know exactly how much and how often to take the opioid pain medications you are prescribed. Never take opioids in higher amounts or more often than prescribed. Do not combine opioids with alcohol or other drugs that cause drowsiness, such as benzodiazepines, also known as benzos, including diazepam and alprazolam, muscle relaxants or sleep aids. Never sell or share prescription opioids. This is illegal. Store opioids in a secure place and out of reach of others (including children, family, (more content not included)... [facility] 02-06-2024 Note Exam Date Time Procedure Performing Provider Status 02/06/24 1:34 PM VL Venous US/Doppler One Arm (for DVT). Auth (Verified) [facility] 04-03-2024 Discharge summary Date of Service 02/06/2024 Discharge Diagnosis NSTEMI status post OM1 stent (02/04/2024) and RPL stent ( 02/05/2024) Obstructive coronary artery disease Hyperlipidemia Hospital Course 63-year-old female with no known cardiac illness came in for resting chest pain on Sunday and diagnosed with NSTEMI. Patient got ISABELA stent to OM1 and RPL. Remained asymptomatic for the past 24 hours. Denied chest pain, palpitation, dyspnea, orthopnea andPND. Upper extremity doppler is normal. Patient will be discharged home with dual antiplatelet therapy, statin and beta-dick. Cardiac catheterization 02/04/2024 Mid left main 60% Mid OM1 99% ISABELA stent Proximal RPL 90% Echocardiogram 02/04/2024 EF 50-55% Dyskinesia in the mid to apical anterior, mid apical anterolateral, mid inferolateral. Grade 1 diastolic dysfunction Allergies Augmentin (sweating, hallucinations) Consults No qualifying data available. Physical Exam Vitals and Measurements T: 36.5 C (Oral) TMIN: 36.4 C (Oral) TMAX: 36.9 C (Oral) HR: 97(Apical) RR: 18 BP: 110/78 SpO2: 95% Weight Dosing Weight: 58.4 kg (02/03/24) General Appearance: Patient comfortably lying on bed, not in acute distress Head: Normocephalic, atraumatic EENT: PERRLA, Neck: Supple, no JVD, no mass Cardiac: s1s2,RRR, no murmurs or rubs or gallops Lungs: Clear to auscultation bilaterally, no wheeze or rhonchi or crackles Abdomen: Soft , Nontender, no organomegaly, bowel sounds heard Musculoskeletal: Full ROM , no gross deformities Extremities: No rash or ulcers or pedal edema Neurological: Alert, oriented x 3, grossly no focal neurological deficits Skin: No rash or ulcers Code Status Code Status - Ordered -- 02/03/24 11:24:00 EDT, Full Code, Constant Order Admission Date 02/04/2024 Discharge Date 02/06/2024 Patient Instructions Ice pack over the right forearm for swelling. In case of worsening of the swelling, numbness or loss of sensation in right hand, please go to ER immediately. Medications New Prescription aspirin (aspirin 81 mg oral delayed release tablet)1 tab(s) by mouth once a day. Refills: 0. atorvastatin (Lipitor 40 mg oral tablet)1 tab(s) by mouth once a day. Refills: 11. metoprolol (metoprolol succinate 25 mg oral TABLET extended release)0.5 tab(s) by mouth once a day.Refills: 11. ticagrelor (ticagrelor 90 mg oral tablet)1 tab(s) by mouth every 12 hours. Refills: 11. Discontinued multivitamin (Multivitamin)1 tab(s) by mouth every day. Follow Up Follow Up with AWA CARTER MD When 03/10/2024 11:15 AM EDT Where: [address] [address] [phone] Follow Up with AWA CARTER MD When Within 5 to 7 days Where: [address] [address]- [phone] Follow Up with [facility] cardiac rehab dept. will call in 1-2 weeks When In 2 weeks Follow Up with EDUARDO SHOOK When Within 1-2 days Where: [address] [place] [address] [place] [address] [phone] Business (1) Follow Up Appointments No qualifying data available. Follow Up Labs/Studies Discharge Labs No Follow-up Labs Discharge Studies No Follow-up Studies Discharge Diet No qualifying data available. Discharge Activity No qualifying data available. Condition on Discharge Fair Discharge Disposition Home Digitally Signed by JANNIE ADKINS MD on 02/06/2024 02:11 PM [address]02-2024 NoteSINUS RHYTHM LOW VOLTAGE, PRECORDIAL LEADS NONSPECIFIC T ABNORMALITIES, LATERAL LEADS Electronic Signature: LIONEL NANCE MD 02/06/2024 18:54:38[facility] 04-02-2024 Cardiology Progress note Date of Service 02/05/2024 Subjective 63-year-old female with no known cardiac illness came in for resting chest pain on Sunday and diagnosed with NSTEMI. Patient underwent left heart catheterization and got 1 ISABELA stent to OM1 with plan for staged PCI to RPL today. Remained asymptomatic for the past 24 hours. Denied chest pain, palpitation, dyspnea, orthopnea andPND. Cardiac catheterization 02/04/2024 Mid left main 60% Mid OM1 99% ISABELA stent Proximal RPL 90% Echocardiogram 02/04/2024 EF 50-55% Dyskinesia in the mid to apical anterior, mid apical anterolateral, mid inferolateral. Grade 1 diastolic dysfunction Objective Vitals and Measurements T: 36.8 C (Oral) TMIN: 36.6 C (Oral) TMAX: 36.9 C (Oral) HR: 80(Monitored) RR: 20 BP: 130/78 SpO2: 96% Intake and Output 7AM Yesterday to 7AM Today Intake and Output (Last 24 hours) Intake Oral Intake 1220.00 Output Urine Voided 100.00 Stool Count 1.00 Urine Count 7.00 Total Summary Total Intake 1220.00 Total Output 100.00 Fluid Balance 1120.00 Physical Exam General Appearance: Patient comfortably lying on bed, not in acute distress Head: Normocephalic, atraumatic EENT: PERRLA, Neck: Supple, no JVD, no mass Cardiac: s1s2,RRR, no murmurs or rubs or gallops Lungs: Clear to auscultation bilaterally, no wheeze or rhonchi or crackles Abdomen: Soft , Nontender, no organomegaly, bowel sounds heard Musculoskeletal: Full ROM , no gross deformities Extremities: No rash or ulcers or pedal edema Neurological: Alert, oriented x 3, grossly no focal neurological deficits Skin: No rash or ulcers Weight Dosing Weight: 58.4 kg (02/03/24) Medications Medications (20) Active Scheduled: (5) aspirin 81 mg Chewable 81 mg 1 tab(s), Oral, qDayM atorvastatin 40 mg tablet 40 mg 1 tab(s), Oral, qDay metoprolol succinate 25 mg ER tablet 12.5 mg 0.5 tab(s), Oral, qDay No metformin for 48 hrs post contrast 1 EA, Miscellaneous, Unscheduled ticagrelor 90 mg tablet 90 mg 1 tab(s), Oral, q12h Continuous: (1) heparin 25,000 unit(s) [12 unit(s)/kg/hr] + Dextrose 5% Premix Diluent 250 mL 250 mL, Intravenous, 7.01 mL/hr PRN: (14) acetaminophen 325 mg Tablet 650 mg 2 tab(s), Oral, q4h albuterol 0.083% Soln UD (2.5mg/3 mL) 2.5 mg 3 mL, Inhalation, q4hRT dextrose 50% Solution Disp syringe 50 mL 12.5 gram(s) 25 mL, IV Push, AsDirected heparin 5,000 units/mL (1 mL) vial 3,504 unit(s) 0.7 mL, IV Push, q6h magnesium sulfate 4 gram(s)/100mL PMX 4 g 100 mL, IV Piggyback, AsDirected magnesium sulfate 50% (500mg/mL) 6 g 12 mL, IV Piggyback, AsDirected magnesium sulfate PMX 2 g 50 mL, IV Piggyback, AsDirected melatonin 3 mg tablet 6 mg 2 tab(s), Oral, qHS nitroglycerin 0.4 mg Tablet (25/btl) 0.4 mg 1 tab(s), Sublingual, q5min ondansetron 2 mg/ 1 mL 2 mL INJ 4 mg 2 mL, IV Push, q4h potassium chloride (PMX) 20 mEq/100 mL 20 mEq 100 mL, IV Piggyback, AsDirected potassium chloride 20 mEq ER tablet 20 mEq 1 tab(s), Oral, AsDirected potassium chloride 20 mEq ER tablet 40 mEq 2 tab(s), Oral, AsDirected potassium chloride 20 mEq ER tablet 40 mEq 2 tab(s), Oral, AsDirected Lab Results 02/04 02:22 WBC: 7.4 Hgb: 14.0 Hct: 40.4 Platelet: 277 Neutrophil %: 64.7 Glucose Level: 121 H Sodium Level: 140 Potassium Level: 4.2 BUN: 14.0 Creatinine Lvl (s): 0.68 02/03 02:37 WBC: 8.2 Hgb: 14.3 Hct: 40.7 Platelet: 267 Neutrophil %: 66.6 Glucose Level: 117 H Sodium Level: 137 Potassium Level: 3.7 BUN: 11.0 Creatinine Lvl (s): 0.65 EKG EKG - Completed -- 02/03/24 10:42:00 EDT, admission Assessment/Plan NSTEMI status post OM1 stent (02/04/2024) Residual mid LM 60% and proximal RPL 90% disease Obstructive coronary artery disease Hyperlipidemia Planned for PCI to RPL today. Started on dual antiplatelet therapy with aspirin and Brilinta. Continue beta-dick and high-dose atorvastatin. Patient has preserved EF. Euvolemic on PE. Digitally Signed by JANNIE ADKINS MD on 02/05/2024 01:22 PM [id number]* Exam Date Time Procedure Performing Provider Status 02/05/24 2:16 PM Percut Transluminal Coronary Angioplasty Auth (Verified) [facility] 04-02-2024 Cardiology Progress note Date of Service 02/05/2024 Subjective 63-year-old female with no known cardiac illness came in for resting chest pain on Sunday and diagnosed with NSTEMI. Patient underwent left heart catheterization and got 1 ISABELA stent to OM1 with plan for staged PCI to RPL today. Remained asymptomatic for the past 24 hours. Denied chest pain, palpitation, dyspnea, orthopnea andPND. Cardiac catheterization 02/04/2024 Mid left main 60% Mid OM1 99% ISABELA stent Proximal RPL 90% Echocardiogram 02/04/2024 EF 50-55% Dyskinesia in the mid to apical anterior, mid apical anterolateral, mid inferolateral. Grade 1 diastolic dysfunction Objective Vitals and Measurements T: 36.8 C (Oral) TMIN: 36.6 C (Oral) TMAX: 36.9 C (Oral) HR: 80(Monitored) RR: 20 BP: 130/78 SpO2: 96% Intake and Output 7AM Yesterday to 7AM Today Intake and Output (Last 24 hours) Intake Oral Intake 1220.00 Output Urine Voided 100.00 Stool Count 1.00 Urine Count 7.00 Total Summary Total Intake 1220.00 Total Output 100.00 Fluid Balance 1120.00 Physical Exam General Appearance: Patient comfortably lying on bed, not in acute distress Head: Normocephalic, atraumatic EENT: PERRLA, Neck: Supple, no JVD, no mass Cardiac: s1s2,RRR, no murmurs or rubs or gallops Lungs: Clear to auscultation bilaterally, no wheeze or rhonchi or crackles Abdomen: Soft , Nontender, no organomegaly, bowel sounds heard Musculoskeletal: Full ROM , no gross deformities Extremities: No rash or ulcers or pedal edema Neurological: Alert, oriented x 3, grossly no focal neurological deficits Skin: No rash or ulcers Weight Dosing Weight: 58.4 kg (02/03/24) Medications Medications (20) Active Scheduled: (5) aspirin 81 mg Chewable 81 mg 1 tab(s), Oral, qDayM atorvastatin 40 mg tablet 40 mg 1 tab(s), Oral, qDay metoprolol succinate 25 mg ER tablet 12.5 mg 0.5 tab(s), Oral, qDay No metformin for 48 hrs post contrast 1 EA, Miscellaneous, Unscheduled ticagrelor 90 mg tablet 90 mg 1 tab(s), Oral, q12h Continuous: (1) heparin 25,000 unit(s) [12 unit(s)/kg/hr] + Dextrose 5% Premix Diluent 250 mL 250 mL, Intravenous, 7.01 mL/hr PRN: (14) acetaminophen 325 mg Tablet 650 mg 2 tab(s), Oral, q4h albuterol 0.083% Soln UD (2.5mg/3 mL) 2.5 mg 3 mL, Inhalation, q4hRT dextrose 50% Solution Disp syringe 50 mL 12.5 gram(s) 25 mL, IV Push, AsDirected heparin 5,000 units/mL (1 mL) vial 3,504 unit(s) 0.7 mL, IV Push, q6h magnesium sulfate 4 gram(s)/100mL PMX 4 g 100 mL, IV Piggyback, AsDirected magnesium sulfate 50% (500mg/mL) 6 g 12 mL, IV Piggyback, AsDirected magnesium sulfate PMX 2 g 50 mL, IV Piggyback, AsDirected melatonin 3 mg tablet 6 mg 2 tab(s), Oral, qHS nitroglycerin 0.4 mg Tablet (25/btl) 0.4 mg 1 tab(s), Sublingual, q5min ondansetron 2 mg/ 1 mL 2 mL INJ 4 mg 2 mL, IV Push, q4h potassium chloride (PMX) 20 mEq/100 mL 20 mEq 100 mL, IV Piggyback, AsDirected potassium chloride 20 mEq ER tablet 20 mEq 1 tab(s), Oral, AsDirected potassium chloride 20 mEq ER tablet 40 mEq 2 tab(s), Oral, AsDirected potassium chloride 20 mEq ER tablet 40 mEq 2 tab(s), Oral, AsDirected Lab Results 02/04 02:22 WBC: 7.4 Hgb: 14.0 Hct: 40.4 Platelet: 277 Neutrophil %: 64.7 Glucose Level: 121 H Sodium Level: 140 Potassium Level: 4.2 BUN: 14.0 Creatinine Lvl (s): 0.68 02/03 02:37 WBC: 8.2 Hgb: 14.3 Hct: 40.7 Platelet: 267 Neutrophil %: 66.6 Glucose Level: 117 H Sodium Level: 137 Potassium Level: 3.7 BUN: 11.0 Creatinine Lvl (s): 0.65 EKG EKG - Completed -- 02/03/24 10:42:00 EDT, admission Assessment/Plan NSTEMI status post OM1 stent (02/04/2024) Residual mid LM 60% and proximal RPL 90% disease Obstructive coronary artery disease Hyperlipidemia Planned for PCI to RPL today. Started on dual antiplatelet therapy with aspirin and Brilinta. Continue beta-dick and high-dose atorvastatin. Patient has preserved EF. Euvolemic on PE. Digitally Signed by JANNIE ADKINS MD on 02/05/2024 01:22 PM [id number] Progress note Date of Service 02/04/2024 Subjective Patient was seen and examined at bedside today. Pain has subsided since last night. Patient is currently asymptomatic. Objective Vitals and Measurements T: 36.5 C (Oral) TMIN: 36.4 C (Oral) TMAX: 36.8 C (Oral) HR: 93(Monitored) RR: 16 BP: 112/67 SpO2: 98% Intake and Output 7AM Yesterday to 7AM Today Intake and Output (Last 24 hours) Intake Oral Intake 1200.00 Output Urine Output Initial 400.00 Urine Voided 500.00 Stool Count 0.00 Urine Count 3.00 Total Summary Total Intake 1200.00 Total Output 900.00 Fluid Balance 300.00 Physical Exam General Appearance: Patient comfortably lying on bed, not in acute distress Head: Normocephalic, atraumatic EENT: PERRLA, Neck: Supple, no JVD, no mass Cardiac: s1s2,RRR, no murmurs or rubs or gallops Lungs: Clear to auscultation bilaterally, no wheeze or rhonchi or crackles Abdomen: Soft , Nontender, no organomegaly, bowel sounds heard Musculoskeletal: Full ROM , no gross deformities Extremities: No rash or ulcers or pedal edema Neurological: Alert, oriented x 3, grossly no focal neurological deficits Skin: No rash or ulcers Weight Dosing Weight: 58.4 kg (02/03/24) Medications Medications (19) Active Scheduled: (4) aspirin 81 mg Chewable 81 mg 1 tab(s), Oral, qDayM atorvastatin 40 mg tablet 40 mg 1 tab(s), Oral, qDay metoprolol succinate 25 mg ER tablet 12.5 mg 0.5 tab(s), Oral, qDay ticagrelor 90 mg tablet 90 mg 1 tab(s), Oral, q12h Continuous: (1) heparin 25,000 unit(s) [12 unit(s)/kg/hr] + Dextrose 5% Premix Diluent 250 mL 250 mL, Intravenous, 7.01 mL/hr PRN: (14) acetaminophen 325 mg Tablet 650 mg 2 tab(s), Oral, q4h albuterol 0.083% Soln UD (2.5mg/3 mL) 2.5 mg 3 mL, Inhalation, q4hRT dextrose 50% Solution Disp syringe 50 mL 12.5 gram(s) 25 mL, IV Push, AsDirected heparin 5,000 units/mL (1 mL) vial 3,504 unit(s) 0.7 mL, IV Push, q6h magnesium sulfate 4 gram(s)/100mL PMX 4 g 100 mL, IV Piggyback, AsDirected magnesium sulfate 50% (500mg/mL) 6 g 12 mL, IV Piggyback, AsDirected magnesium sulfate PMX 2 g 50 mL, IV Piggyback, AsDirected melatonin 3 mg tablet 6 mg 2 tab(s), Oral, qHS nitroglycerin 0.4 mg Tablet (25/btl) 0.4 mg 1 tab(s), Sublingual, q5min ondansetron 2 mg/ 1 mL 2 mL INJ 4 mg 2 mL, IV Push, q4h potassium chloride (PMX) 20 mEq/100 mL 20 mEq 100 mL, IV Piggyback, AsDirected potassium chloride 20 mEq ER tablet 20 mEq 1 tab(s), Oral, AsDirected potassium chloride 20 mEq ER tablet 40 mEq 2 tab(s), Oral, AsDirected potassium chloride 20 mEq ER tablet 40 mEq 2 tab(s), Oral, AsDirected Lab Results 02/03 02:37 WBC: 8.2 Hgb: 14.3 Hct: 40.7 Platelet: 267 Neutrophil %: 66.6 Glucose Level: 117 H Sodium Level: 137 Potassium Level: 3.7 BUN: 11.0 Creatinine Lvl (s): 0.65 02/02 17:00 WBC: 8.0 Hgb: 14.6 Hct: 42.3 Platelet: 303 Neutrophil %: 64.0 Glucose Level: 130 H Sodium Level: 134 L Potassium Level: 4.0 BUN: 11.0 Creatinine Lvl (s): 0.73 02/02 12:05 Protime: 13.1 PT International Ratio: 1.2 EKG Electrocardiogram (EKG) - Ordered -- 02/03/24 11:24:00 EDT Electrocardiogram (EKG) - Ordered -- 02/03/24 17:24:00 EDT Electrocardiogram (EKG) - Ordered -- 02/03/24 19:20:00 EDT Assessment/Plan NSTEMI status post OM1 stent (02/04/2024) Residual RPL disease Obstructive coronary artery disease Hyperlipidemia Patient underwent left heart catheterization and got 1 ISABELA stent to OM1. Will plan for staged PCI to RPL tomorrow. Final Report is pending. Started on dual antiplatelet therapy with aspirin and Brilinta. Continue beta-dick and high-dose atorvastatin. Preliminary review of echocardiogram showed normal EF. Will follow the final report. Digitally Signed by JANNIE ADKINS MD on 02/04/2024 11:18 AM [facility] [id number] History and physical note Date of Service 02/03/2024 Chief Complaint Resting chest pain for 1 day History of Present Illness 63-year-old female with no known cardiac illness came in for resting chest pain on Sunday. Patient has no other medical illness and has not been taking any medications. Patient is usually an active person and works out 30 minutes/day. On Sunday, patient noted bilateral arm pain after workout likely muscular but associated with mild chest discomfort, which went away after a few minutes at rest. Since then, patient has been experiencing mild chest discomfort off andon even at rest on Sunday evening. Yesterday, patient experienced resting chest pain that lasted for 45 minutes, located in the central chest, started at 4/10, aggravated to 9/10 severity when she arrived to the ER. Character was mostly discomfort with no significant aggravating or relieving factors. She denied dyspnea, orthopnea, palpitation, nausea, vomiting and vasomotor symptoms. Pain got better after she received IV heparin by weight. Currently, pain is 2-3 out of 10 in severity. Patient denied recent fever, chills or respiratory symptoms. No recent sick contact or travel history. Patient denied history of diabetes mellitus, hypertension, hyperlipidemia, thyroid disorder, CKD, arrhythmia, aortopathy and sleep apnea. Patient does not smoke, does not use alcohol or recreational drugs. No significant family history of premature coronary artery disease or sudden cardiac except for maternal grandfather who had a heart attack at the age of 46. Patient has no recent cardiac investigations. EKG - Normal sinus rhythm Troponin - [id number] Review of Systems Constitutional: denies Fevers and chills , no loss of appetite, denies fatigue or weight change Eyes: Denies double vision/blurring of vision/flashes or floaters Ears, Nose, Mouth & Throat: Denies any tinnitus/hearing loss/sinus congestion/nasal discharge/sore throat Gastrointestinal: Denies any abdominal pain/nausea/vomiting/diarrhea/hematochezia/hematemesis/melena Genitourinary: Denies any dysuria/hematuria Musculoskeletal: denies joint pain or joint swelling or deformities Skin: No ulcers or rash Neurological: denies Weakness or numbness of extremities/facial droop/loss of balance Endocrine: Denies any heat or cold intolerance/polyuria/polydipsia/polyphagia Hematologic/Lymphatic: denies lymphadenopathy Allergic/Immunologic: Denies any seasonal allergy/sneezing/tearing from the eyes Physical Exam Vitals and Measurements HR: 90(Apical) RR: 16 BP: 149/71 SpO2: 100% HT: 165.1 cm WT: 58.4 kg BMI: 21.42 Weight Dosing Weight: 58.4 kg (02/03/24) General Appearance: Patient comfortably lying on bed, not in acute distress Head: Normocephalic, atraumatic EENT: PERRLA, Neck: Supple, no JVD, no mass Cardiac: s1s2,RRR, no murmurs or rubs or gallops Lungs: Clear to auscultation bilaterally, no wheeze or rhonchi or crackles Abdomen: Soft , Nontender, no organomegaly, bowel sounds heard Musculoskeletal: Full ROM , no gross deformities Extremities: No rash or ulcers or pedal edema Neurological: Alert, oriented x 3, grossly no focal neurological deficits Skin: No rash or ulcers Lab Results No 36 Hour Lab Data Assessment/Plan NSTEMI Patient has NSTEMI. LILI score of 3. Serial troponin and EKG. Continue IV heparin by weight, start low-dose aspirin and statin. N.p.o. after midnight and will plan for left heart catheterization tomorrow. Echocardiogram, TSH, A1c and lipid panel. Problem List/Past Medical History Ongoing No qualifying data Historical No qualifying data Procedure/Surgical History No qualifying data available. Medications Home Medications (1) Active Multivitamin 1 tab(s), Oral, Daily Allergies Augmentin (sweating, hallucinations) Social History Alcohol Use: Past., 02/03/2024 Tobacco Nicotine Use: Never (less than 100 in lifetime)., 02/03/2024 Immunizations No qualifying data available. Code Status Code Status - Ordered -- 02/03/24 11:24:00 EDT, Full Code, Constant Order Digitally Signed by JANNIE ADKINS MD on 02/03/2024 06:15 PM [id number] NoteSINUS RHYTHM ABNORMAL T, CONSIDER ISCHEMIA, LATERAL LEADS Electronic Signature: LIONEL NACNE MD 02/05/2024 20:01:06[facility] 04-01-2024 Cardiology Progress note Date of Service 02/04/2024 Subjective Patient was seen and examined at bedside today. Pain has subsided since last night. Patient is currently asymptomatic. Objective Vitals and Measurements T: 36.5 C (Oral) TMIN: 36.4 C (Oral) TMAX: 36.8 C (Oral) HR: 93(Monitored) RR: 16 BP: 112/67 SpO2: 98% Intake and Output 7AM Yesterday to 7AM Today Intake and Output (Last 24 hours) Intake Oral Intake 1200.00 Output Urine Output Initial 400.00 Urine Voided 500.00 Stool Count 0.00 Urine Count 3.00 Total Summary Total Intake 1200.00 Total Output 900.00 Fluid Balance 300.00 Physical Exam General Appearance: Patient comfortably lying on bed, not in acute distress Head: Normocephalic, atraumatic EENT: PERRLA, Neck: Supple, no JVD, no mass Cardiac: s1s2,RRR, no murmurs or rubs or gallops Lungs: Clear to auscultation bilaterally, no wheeze or rhonchi or crackles Abdomen: Soft , Nontender, no organomegaly, bowel sounds heard Musculoskeletal: Full ROM , no gross deformities Extremities: No rash or ulcers or pedal edema Neurological: Alert, oriented x 3, grossly no focal neurological deficits Skin: No rash or ulcers Weight Dosing Weight: 58.4 kg (02/03/24) Medications Medications (19) Active Scheduled: (4) aspirin 81 mg Chewable 81 mg 1 tab(s), Oral, qDayM atorvastatin 40 mg tablet 40 mg 1 tab(s), Oral, qDay metoprolol succinate 25 mg ER tablet 12.5 mg 0.5 tab(s), Oral, qDay ticagrelor 90 mg tablet 90 mg 1 tab(s), Oral, q12h Continuous: (1) heparin 25,000 unit(s) [12 unit(s)/kg/hr] + Dextrose 5% Premix Diluent 250 mL 250 mL, Intravenous, 7.01 mL/hr PRN: (14) acetaminophen 325 mg Tablet 650 mg 2 tab(s), Oral, q4h albuterol 0.083% Soln UD (2.5mg/3 mL) 2.5 mg 3 mL, Inhalation, q4hRT dextrose 50% Solution Disp syringe 50 mL 12.5 gram(s) 25 mL, IV Push, AsDirected heparin 5,000 units/mL (1 mL) vial 3,504 unit(s) 0.7 mL, IV Push, q6h magnesium sulfate 4 gram(s)/100mL PMX 4 g 100 mL, IV Piggyback, AsDirected magnesium sulfate 50% (500mg/mL) 6 g 12 mL, IV Piggyback, AsDirected magnesium sulfate PMX 2 g 50 mL, IV Piggyback, AsDirected melatonin 3 mg tablet 6 mg 2 tab(s), Oral, qHS nitroglycerin 0.4 mg Tablet (25/btl) 0.4 mg 1 tab(s), Sublingual, q5min ondansetron 2 mg/ 1 mL 2 mL INJ 4 mg 2 mL, IV Push, q4h potassium chloride (PMX) 20 mEq/100 mL 20 mEq 100 mL, IV Piggyback, AsDirected potassium chloride 20 mEq ER tablet 20 mEq 1 tab(s), Oral, AsDirected potassium chloride 20 mEq ER tablet 40 mEq 2 tab(s), Oral, AsDirected potassium chloride 20 mEq ER tablet 40 mEq 2 tab(s), Oral, AsDirected Lab Results 02/03 02:37 WBC: 8.2 Hgb: 14.3 Hct: 40.7 Platelet: 267 Neutrophil %: 66.6 Glucose Level: 117 H Sodium Level: 137 Potassium Level: 3.7 BUN: 11.0 Creatinine Lvl (s): 0.65 02/02 17:00 WBC: 8.0 Hgb: 14.6 Hct: 42.3 Platelet: 303 Neutrophil %: 64.0 Glucose Level: 130 H Sodium Level: 134 L Potassium Level: 4.0 BUN: 11.0 Creatinine Lvl (s): 0.73 02/02 12:05 Protime: 13.1 PT International Ratio: 1.2 EKG Electrocardiogram (EKG) - Ordered -- 02/03/24 11:24:00 EDT Electrocardiogram (EKG) - Ordered -- 02/03/24 17:24:00 EDT Electrocardiogram (EKG) - Ordered -- 02/03/24 19:20:00 EDT Assessment/Plan NSTEMI status post OM1 stent (02/04/2024) Residual RPL disease Obstructive coronary artery disease Hyperlipidemia Patient underwent left heart catheterization and got 1 ISABELA stent to OM1. Will plan for staged PCI to RPL tomorrow. Final Report is pending. Started on dual antiplatelet therapy with aspirin and Brilinta. Continue beta-dick and high-dose atorvastatin. Preliminary review of echocardiogram showed normal EF. Will follow the final report. Digitally Signed by JANNIE ADKINS MD on 02/04/2024 11:18 AM [facility] [id number] Cardiology Progress note Date of Service 02/04/24 LHC performed via right radial access. minimal blood loss, no complications, no hematoma around access site. PCI + Xience 2.5mm x 18 mm stent placed to OM1 Plan Continue ASA, Brilinta, and atorvastatin Plan for PCI + stent to RPL tomorrow Continue HBW 6h post procedure depending on repeat PTT Digitally Signed by SYED ZURITA MD on 02/04/2024 11:07 AM [facility] [id number] Note* Exam Date Time Procedure Performing Provider Status 02/04/24 10:27 AM Cardiac Catheterization -CV Auth (Verified) [facility] 04-01-2024 Note* Exam Date Time Procedure Performing Provider Status 02/04/24 7:22 AM Echocardiogram, Adult - CV Auth (Verified) [facility] 03-31-2024 Evaluation + Plan noteExtracted from: Title:History and Physical Author:JANNIE ADKINS MD Date:02/03/24 NSTEMI Patient has NSTEMI. LILI score of 3. Serial troponin and EKG. Continue IV heparin by weight, start low-dose aspirin and statin. N.p.o. after midnight and will plan for left heart catheterization tomorrow. Echocardiogram, TSH, A1c and lipid panel. Addendum by AWA CARTER MD on February 04, 2024 14:35:46 EDT I have seen & examined this patient myself, reviewed all data and agree with the fellow's findings and with the plan of care and management delineated in the fellow's documentation note Future Appointments Appointment Date:03/10/2024 11:15:00 AM Scheduled Provider: Location:[facility] Appointment Type:[facility] Follow Up [facility] 03-31-2024 History and physical note Date of Service 02/03/2024 Chief Complaint Resting chest pain for 1 day History of Present Illness 63-year-old female with no known cardiac illness came in for resting chest pain on Sunday. Patient has no other medical illness and has not been taking any medications. Patient is usually an active person and works out 30 minutes/day. On Sunday, patient noted bilateral arm pain after workout likely muscular but associated with mild chest discomfort, which went away after a few minutes at rest. Since then, patient has been experiencing mild chest discomfort off andon even at rest on Sunday evening. Yesterday, patient experienced resting chest pain that lasted for 45 minutes, located in the central chest, started at 4/10, aggravated to 9/10 severity when she arrived to the ER. Character was mostly discomfort with no significant aggravating or relieving factors. She denied dyspnea, orthopnea, palpitation, nausea, vomiting and vasomotor symptoms. Pain got better after she received IV heparin by weight. Currently, pain is 2-3 out of 10 in severity. Patient denied recent fever, chills or respiratory symptoms. No recent sick contact or travel history. Patient denied history of diabetes mellitus, hypertension, hyperlipidemia, thyroid disorder, CKD, arrhythmia, aortopathy and sleep apnea. Patient does not smoke, does not use alcohol or recreational drugs. No significant family history of premature coronary artery disease or sudden cardiac except for maternal grandfather who had a heart attack at the age of 46. Patient has no recent cardiac investigations. EKG - Normal sinus rhythm Troponin - [id number] Review of Systems Constitutional: denies Fevers and chills , no loss of appetite, denies fatigue or weight change Eyes: Denies double vision/blurring of vision/flashes or floaters Ears, Nose, Mouth & Throat: Denies any tinnitus/hearing loss/sinus congestion/nasal discharge/sore throat Gastrointestinal: Denies any abdominal pain/nausea/vomiting/diarrhea/hematochezia/hematemesis/melena Genitourinary: Denies any dysuria/hematuria Musculoskeletal: denies joint pain or joint swelling or deformities Skin: No ulcers or rash Neurological: denies Weakness or numbness of extremities/facial droop/loss of balance Endocrine: Denies any heat or cold intolerance/polyuria/polydipsia/polyphagia Hematologic/Lymphatic: denies lymphadenopathy Allergic/Immunologic: Denies any seasonal allergy/sneezing/tearing from the eyes Physical Exam Vitals and Measurements HR: 90(Apical) RR: 16 BP: 149/71 SpO2: 100% HT: 165.1 cm WT: 58.4 kg BMI: 21.42 Weight Dosing Weight: 58.4 kg (02/03/24) General Appearance: Patient comfortably lying on bed, not in acute distress Head: Normocephalic, atraumatic EENT: PERRLA, Neck: Supple, no JVD, no mass Cardiac: s1s2,RRR, no murmurs or rubs or gallops Lungs: Clear to auscultation bilaterally, no wheeze or rhonchi or crackles Abdomen: Soft , Nontender, no organomegaly, bowel sounds heard Musculoskeletal: Full ROM , no gross deformities Extremities: No rash or ulcers or pedal edema Neurological: Alert, oriented x 3, grossly no focal neurological deficits Skin: No rash or ulcers Lab Results No 36 Hour Lab Data Assessment/Plan NSTEMI Patient has NSTEMI. LILI score of 3. Serial troponin and EKG. Continue IV heparin by weight, start low-dose aspirin and statin. N.p.o. after midnight and will plan for left heart catheterization tomorrow. Echocardiogram, TSH, A1c and lipid panel. Problem List/Past Medical History Ongoing No qualifying data Historical No qualifying data Procedure/Surgical History No qualifying data available. Medications Home Medications (1) Active Multivitamin 1 tab(s), Oral, Daily Allergies Augmentin (sweating, hallucinations) Social History Alcohol Use: Past., 02/03/2024 Tobacco Nicotine Use: Never (less than 100 in lifetime)., 02/03/2024 Immunizations No qualifying data available. Code Status Code Status - Ordered -- 02/03/24 11:24:00 EDT, Full Code, Constant Order Digitally Signed by JANNIE ADKINS MD on 02/03/2024 06:15 PM [facility] [id number] NoteSINUS RHYTHM LEFT ATRIAL ENLARGEMENT Electronic Signature: LIONEL NANCE MD 02/04/2024 20:28:00[facility] Evaluation note* Diagnosis Onset Date Resolution Status Family history of breast cancer chronic Encounter for routine gynecological examination noneactive [facility] Work Phone: Evaluation note* Diagnosis Onset Date Resolution Status Admit Date 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 acute May 26, 2025 12:52pm Family history of breast cancer chronic May 26, 2025 12:52pm Encounter for routine gynecological examination noneactive May 062024 12:52pm [facility] Work Phone: Hospital course Narrative No data available for this section [facility] Progress note Author Griselda Ward [facility] Services Note Date/Time May 26, 2025 1:49 pm [facility] [address], [address] [place] [address] OFFICE VISIT Date of Service: 05/26/25 MR#: [id number] Acct: [id number] Name: REINALDO MIRANDA Rep #: [id number] : 1960 Provider: Dr. 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: No Is patient in pain?: No Allergies amoxicillin (From Augmentin) Allergy (Mild, Verified 05/26/25 13:17) sweat clavulanic acid (From Augmentin) Allergy (Mild, Verified 05/26/25 13:17) sweat Medications ?Medication ?Instructions ?Recorded ?Confirmed ?Type aspirin 81 mg tablet,delayed 81 mg PO DAILY 04/28/24 0 05/26/25 History release (Adult Low Dose Aspirin) atorvastatin 40 mg tablet 40 mg PO DAILY 04/28/2405/06 History metoprolol succinate 25 mg 12.5 mg PO DAILY 04/28/24 0 05/26/25 History tablet,extended release 24 hr Is last menstrual period known: No Post menopausal: Yes Patient : No : No PFSH Medical History History of heart attack Shingles Surgical History History of heart artery stent S/P tubal ligation S/P tonsillectomy Family History Mother Ovarian cancer Diabetes Hypertension Sister Breast cancer Grandfather Heart disease Social History (Updated 05/26/25 @ 13:18 by Monie Lucas) number of children: 2 current occupational status: retired Smoking Status: Never smoker alcohol intake: never substance use type: does not use caffeine: Yes what type of physical activity do you participate in: walking frequency: 3-4 times per week duration: 15-30 minutes/day seatbelt use: always do you feel safe at home: Yes additional social history: [employer] employed- [employer] Patient is Retired History 2 Elective abortions Hx Para 2 Spontaneous abortions Hx # Term Pregnancies Ectopic pregnancies Hx # Pregnancies Multiple births # of living children Past Pregnancies Del. Date Name GA/Weeks Outcome Route Bth Weight Gen Labor Lgth Anesthesia Del Locatn Provider FOB Unknown [place]- 1981 Unknown [place]-1987 HPI Encounter for routine gynecological examination Details: REINALDO MIRANDA is a 65 year old who presents for annual exam. Last PAP: 04/25/21 - normal History of abnormal PAP: Last mammogram: today History of abnormal mammogram: Colon cancer screening: cologuard in a couple weeks Other preventative health care screenings: PCP [facility] History Questions: metorrhagia: No, sexually active: Yes, dyspareunia: No and PCB: No Menopausal Symptoms: No hot flashes, No night sweats, No weight change, No mood changes, No difficulty concentrating, No sleep problems and No change in libido ROS Const Constitutional: Reports as per HPI; Denies fatigue, increased appetite, poor appetite, night sweats, weight gain or weight loss Cardio Card: Denies chest pain Resp Resp: Denies cough or dyspnea GI GI: Reports as per HPI; Denies abdominal pain, bloating, constipation, nausea or vomiting : Reports as per HPI and other; Denies difficulty voiding, dysuria, hematuria, hot flashes, nipple discharge, pelvic pain, prolapse symptoms, urinary frequency, urinary incontinence, urinaryurgency, vaginal discharge, vaginal dryness, vaginal odor or vaginal pruritus Skin Skin/Breast: Denies changing lesions, breast mass, breast pain, breast skin changes or nipple discharge Psych Psych: Denies anxiety, change in libido, depression or difficulty concentrating Exam Const General: cooperative, healthy appearing, comfortable, no acute distress, well developed and well groomed HENMT Head: normal to inspection and normocephalic Ears: hearing grossly normal bilaterally and external ears normal Nose: external nose normal Face and sinus: normal facial exam Neck Neck: normal visual inspection, full ROM and no lymphadenopathy Thyroid: thyroid normal Chest Chest palpation & inspection: normal inspection of the chest Breast inspection: normal inspection of the breasts and normal inspection of theaxillae Breast palpation: normal palpation of the breasts, normal palpation of the axillae and no axillary lymphadenopathy Resp Effort & Inspection: normal respiratory effort GI Inspection: normal to inspection and non-distended Palpation: soft, no hepatosplenomegaly and no guarding General: bladder normal to palpation External Female Exam: normal external appearance, normal appearance of the urethra and no lesions Urethra: normal appearance of the urethra and normal palpation Speculum Exam - Vagina: normal appearance of the vagina and normal vaginal discharge Speculum Exam - Cervix: normal appearance of the cervix, no cervical discharge, no lesions and nontender Bimanual Exam- Vagina & Uterus: normal bimanual exam, uterine size normal, bladder normal to palpation, No tender, uterine mobility normal, consistency normal, non-tender and no cervical motion tenderness Bimanual Exam- Adnexa, other: normal adnexae, no masses and non-tender Skin General: no rashes or lesions noted Neuro General: patient alert, moves all extremities and no focal motor deficits Extrem General: normal to inspection and no pedal edema Psych Appearance: grossly normal Mental Status: mental status grossly normal Affect: normal affect Speech and Movement: speech and movement normal Attitude: cooperative Coding Level of Care Code Pelvic/Breast Diagnoses Encounter for gynecological examination with abnormal finding Z01.411 Gynecological examination findings: abnormal findings 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 (3) Family history of breast cancer: Status: Chronic Comment: declines tino [facility], family history of breast(sister) and ovarian(mother) cancer Orders: Orders SCRN MAMM (CAD)W/LIZBETH BILAT Today Z12.31 - Encounter for screening mammogram for malignant neoplasm of breast Plan Cervical cancer screening: pap up to date Breast cancer screening: up to date other health maintenance examination reviewed and orders placed if needed. Encouraged maintenance of a healthy weight and active lifestyle and handout given. Annual exam handout including recommendations for good health guidelines, Calcium/vitamin D recommendations, and basic screening information given. Problem list up to date, see problem list details for any additional plan information. Follow up in one year for annual health maintenance exam or sooner if needed. 05/26/25 0642 <Electronically signed by Griselda ca MD> Date _ Griselda Ward MD Cosigner Signature: Date (if applicable) CC: ~ [facility] Work Phone: Reason for referral (narrative)No reason for referral information [facility] Work Phone: Summary Purpose Family History Relationship Condition Age at Onset Recorded Date/T pepper mother Malignant neoplasm of ovary Unknown Diabetes mellitus Unknown Hypertension Unknown sister Malignant neoplasm of breast Unknown grandfather Cardiac disease Unknown Breast Cancer Status:Active Comments:Sister. Coronary Artery Disease Status:Active Comments :Father. Diabetes Mellitus Type II Status:Active Commen ts:Mother. Paternal Grandmother. Maternal Grandmother. Heart Disease Status:Active Comments:Materna l Grandfather. Paternal Grandfather. Hypertension Status:Active Comments:Mother. Sister. Osteoarthritis Status:Active Comments:Father. Sister. Ovarian Cancer Status:Active Comments:Mother. Pulmonary Fibrosis Status:Active Comments:Vicente er. Breast Cancer Status:Active Comments:Sister. Coronary Artery Disease Status:Active Comments :Father. Diabetes Mellitus Type II Status:Active Commen ts:Mother. Paternal Grandmother. Maternal Grandmother. Heart Disease Status:Active Comments:Materna l Grandfather. Paternal Grandfather. Hypertension Status:Active Comments:Mother. Sister. Osteoarthritis Status:Active Comments:Father. Sister. Ovarian Cancer Status:Active Comments:Mother. Pulmonary Fibrosis Status:Active Comments:Fath er. Breast Cancer Status:Active Comments:Sister. Coronary Artery Disease Status:Active Comments :Father. Diabetes Mellitus Type II Status:Active Commen ts:Mother. Paternal Grandmother. Maternal Grandmother. Heart Disease Status:Active Comments:Materna l Grandfather. Paternal Grandfather. Hypertension Status:Active Comments:Mother. Sister. Osteoarthritis Status:Active Comments:Father. Sister. Ovarian Cancer Status:Active Comments:Mother. Pulmonary Fibrosis Status:Active Comments:Fath er. Breast Cancer Status:Active Comments:Sister. Coronary Artery Disease Status:Active Comments :Father. Diabetes Mellitus Type II Status:Active Commen ts:Mother. Paternal Grandmother. Maternal Grandmother. Heart Disease Status:Active Comments:Materna l Grandfather. Paternal Grandfather. Hypertension Status:Active Comments:Mother. Sister. Osteoarthritis Status:Active Comments:Father. Sister. Ovarian Cancer Status:Active Comments:Mother. Pulmonary Fibrosis Status:Active Comments:Fath er. Breast Cancer Status:Active Comments:Sister. Coronary Artery Disease Status:Active Comments :Father. Diabetes Mellitus Type II Status:Active Commen ts:Mother. Paternal Grandmother. Maternal Grandmother. Heart Disease Status:Active Comments:Materna l Grandfather. Paternal Grandfather. Hypertension Status:Active Comments:Mother. Sister. Osteoarthritis Status:Active Comments:Father. Sister. Ovarian Cancer Status:Active Comments:Mother. Pulmonary Fibrosis Status:Active Comments:Fath er. Breast Cancer Status:Active Comments:Sister. Coronary Artery Disease Status:Active Comments :Father. Diabetes Mellitus Type II Status:Active Commen ts:Mother. Paternal Grandmother. Maternal Grandmother. Heart Disease Status:Active Comments:Materna l Grandfather. Paternal Grandfather. Hypertension Status:Active Comments:Mother. Sister. Osteoarthritis Status:Active Comments:Father. Sister. Ovarian Cancer Status:Active Comments:Mother. Pulmonary Fibrosis Status:Active Comments:Fath er. Breast Cancer Status:Active Comments:Sister. Coronary Artery Disease Status:Active Comments :Father. Diabetes Mellitus Type II Status:Active Commen ts:Mother. Paternal Grandmother. Maternal Grandmother. Heart Disease Status:Active Comments:Materna l Grandfather. Paternal Grandfather. Hypertension Status:Active Comments:Mother. Sister. Osteoarthritis Status:Active Comments:Father. Sister. Ovarian Cancer Status:Active Comments:Mother. Pulmonary Fibrosis Status:Active Comments:Fath er. Breast Cancer Status:Active Comments:Sister. Coronary Artery Disease Status:Active Comments :Father. Diabetes Mellitus Type II Status:Active Commen ts:Mother. Paternal Grandmother. Maternal Grandmother. Heart Disease Status:Active Comments:Materna l Grandfather. Paternal Grandfather. Hypertension Status:Active Comments:Mother. Sister. Osteoarthritis Status:Active Comments:Father. Sister. Ovarian Cancer Status:Active Comments:Mother. Pulmonary Fibrosis Status:Active Comments:Fath er. Breast Cancer Status:Active Comments:Sister. Coronary Artery Disease Status:Active Comments :Father. Diabetes Mellitus Type II Status:Active Commen ts:Mother. Paternal Grandmother. Maternal Grandmother. Heart Disease Status:Active Comments:Materna l Grandfather. Paternal Grandfather. Hypertension Status:Active Comments:Mother. Sister. Osteoarthritis Status:Active Comments:Father. Sister. Ovarian Cancer Status:Active Comments:Mother. Pulmonary Fibrosis Status:Active Comments:Fath er. Breast Cancer Status:Active Comments:Sister. Coronary Artery Disease Status:Active Comments :Father. Diabetes Mellitus Type II Status:Active Commen ts:Mother. Paternal Grandmother. Maternal Grandmother. Heart Disease Status:Active Comments:Materna l Grandfather. Paternal Grandfather. Hypertension Status:Active Comments:Mother. Sister. Osteoarthritis Status:Active Comments:Father. Sister. Ovarian Cancer Status:Active Comments:Mother. Pulmonary Fibrosis Status:Active Comments:Fath er. Breast Cancer Status:Active Comments:Sister. Coronary Artery Disease Status:Active Comments :Father. Diabetes Mellitus Type II Status:Active Commen ts:Mother. Paternal Grandmother. Maternal Grandmother. Heart Disease Status:Active Comments:Materna l Grandfather. Paternal Grandfather. Hypertension Status:Active Comments:Mother. Sister. Osteoarthritis Status:Active Comments:Father. Sister. Ovarian Cancer Status:Active Comments:Mother. Pulmonary Fibrosis Status:Active Comments:Fath er. Breast Cancer Status:Active Comments:Sister. Coronary Artery Disease Status:Active Comments :Father. Diabetes Mellitus Type II Status:Active Commen ts:Mother. Paternal Grandmother. Maternal Grandmother. Heart Disease Status:Active Comments:Materna l Grandfather. Paternal Grandfather. Hypertension Status:Active Comments:Mother. Sister. Osteoarthritis Status:Active Comments:Father. Sister. Ovarian Cancer Status:Active Comments:Mother. Pulmonary Fibrosis Status:Active Comments:Fath er. Breast Cancer Status:Active Comments:Sister. Coronary Artery Disease Status:Active Comments :Father. Diabetes Mellitus Type II Status:Active Commen ts:Mother. Paternal Grandmother. Maternal Grandmother. Heart Disease Status:Active Comments:Materna l Grandfather. Paternal Grandfather. Hypertension Status:Active Comments:Mother. Sister. Osteoarthritis Status:Active Comments:Father. Sister. Ovarian Cancer Status:Active Comments:Mother. Pulmonary Fibrosis Status:Active Comments:Fath er. Breast Cancer Status:Active Comments:Sister. Coronary Artery Disease Status:Active Comments :Father. Diabetes Mellitus Type II Status:Active Commen ts:Mother. Paternal Grandmother. Maternal Grandmother. Heart Disease Status:Active Comments:Materna l Grandfather. Paternal Grandfather. Hypertension Status:Active Comments:Mother. Sister. Osteoarthritis Status:Active Comments:Father. Sister. Ovarian Cancer Status:Active Comments:Mother. Pulmonary Fibrosis Status:Active Comments:Fath er. Breast Cancer Status:Active Comments:Sister. Coronary Artery Disease Status:Active Comments :Father. Diabetes Mellitus Type II Status:Active Commen ts:Mother. Paternal Grandmother. Maternal Grandmother. Heart Disease Status:Active Comments:Materna l Grandfather. Paternal Grandfather. Hypertension Status:Active Comments:Mother. Sister. Osteoarthritis Status:Active Comments:Father. Sister. Ovarian Cancer Status:Active Comments:Mother. Pulmonary Fibrosis Status:Active Comments:Fath er. Breast Cancer Status:Active Comments:Sister. Coronary Artery Disease Status:Active Comments :Father. Diabetes Mellitus Type II Status:Active Commen ts:Mother. Paternal Grandmother. Maternal Grandmother. Heart Disease Status:Active Comments:Materna l Grandfather. Paternal Grandfather. Hypertension Status:Active Comments:Mother. Sister. Osteoarthritis Status:Active Comments:Father. Sister. Ovarian Cancer Status:Active Comments:Mother. Pulmonary Fibrosis Status:Active Comments:Fath er. Breast Cancer Status:Active Comments:Sister. Coronary Artery Disease Status:Active Comments :Father. Diabetes Mellitus Type II Status:Active Commen ts:Mother. Paternal Grandmother. Maternal Grandmother. Heart Disease Status:Active Comments:Materna l Grandfather. Paternal Grandfather. Hypertension Status:Active Comments:Mother. Sister. Osteoarthritis Status:Active Comments:Father. Sister. Ovarian Cancer Status:Active Comments:Mother. Pulmonary Fibrosis Status:Active Comments:Fath er. Breast Cancer Status:Active Comments:Sister. Coronary Artery Disease Status:Active Comments :Father. Diabetes Mellitus Type II Status:Active Commen ts:Mother. Paternal Grandmother. Maternal Grandmother. Heart Disease Status:Active Comments:Materna l Grandfather. Paternal Grandfather. Hypertension Status:Active Comments:Mother. Sister. Osteoarthritis Status:Active Comments:Father. Sister. Ovarian Cancer Status:Active Comments:Mother. Pulmonary Fibrosis Status:Active Comments:Fath er. Breast Cancer Status:Active Comments:Sister. Coronary Artery Disease Status:Active Comments :Father. Diabetes Mellitus Type II Status:Active Commen ts:Mother. Paternal Grandmother. Maternal Grandmother. Heart Disease Status:Active Comments:Materna l Grandfather. Paternal Grandfather. Hypertension Status:Active Comments:Mother. Sister. Osteoarthritis Status:Active Comments:Father. Sister. Ovarian Cancer Status:Active Comments:Mother. Pulmonary Fibrosis Status:Active Comments:Fath er. Breast Cancer Status:Active Comments:Sister. Coronary Artery Disease Status:Active Comments :Father. Diabetes Mellitus Type II Status:Active Commen ts:Mother. Paternal Grandmother. Maternal Grandmother. Heart Disease Status:Active Comments:Materna l Grandfather. Paternal Grandfather. Hypertension Status:Active Comments:Mother. Sister. Osteoarthritis Status:Active Comments:Father. Sister. Ovarian Cancer Status:Active Comments:Mother. Pulmonary Fibrosis Status:Active Comments:Fath er. Breast Cancer Status:Active Comments:Sister. Coronary Artery Disease Status:Active Comments :Father. Diabetes Mellitus Type II Status:Active Commen ts:Mother. Paternal Grandmother. Maternal Grandmother. Heart Disease Status:Active Comments:Materna l Grandfather. Paternal Grandfather. Hypertension Status:Active Comments:Mother. Sister. Osteoarthritis Status:Active Comments:Father. Sister. Ovarian Cancer Status:Active Comments:Mother. Pulmonary Fibrosis Status:Active Comments:Fath er. Breast Cancer Status:Active Comments:Sister. Coronary Artery Disease Status:Active Comments :Father. Diabetes Mellitus Type II Status:Active Commen ts:Mother. Paternal Grandmother. Maternal Grandmother. Heart Disease Status:Active Comments:Materna l Grandfather. Paternal Grandfather. Hypertension Status:Active Comments:Mother. Sister. Osteoarthritis Status:Active Comments:Father. Sister. Ovarian Cancer Status:Active Comments:Mother. Pulmonary Fibrosis Status:Active Comments:Fath er. Breast Cancer Status:Active Comments:Sister. Coronary Artery Disease Status:Active Comments :Father. Diabetes Mellitus Type II Status:Active Commen ts:Mother. Paternal Grandmother. Maternal Grandmother. Heart Disease Status:Active Comments:Materna l Grandfather. Paternal Grandfather. Hypertension Status:Active Comments:Mother. Sister. Osteoarthritis Status:Active Comments:Father. Sister. Ovarian Cancer Status:Active Comments:Mother. Pulmonary Fibrosis Status:Active Comments:Fath er. Breast Cancer Status:Active Comments:Sister. Coronary Artery Disease Status:Active Comments :Father. Diabetes Mellitus Type II Status:Active Commen ts:Mother. Paternal Grandmother. Maternal Grandmother. Heart Disease Status:Active Comments:Materna l Grandfather. Paternal Grandfather. Hypertension Status:Active Comments:Mother. Sister. Osteoarthritis Status:Active Comments:Father. Sister. Ovarian Cancer Status:Active Comments:Mother. Pulmonary Fibrosis Status:Active Comments:Fath er. Breast Cancer Status:Active Comments:Sister. Coronary Artery Disease Status:Active Comments :Father. Diabetes Mellitus Type II Status:Active Commen ts:Mother. Paternal Grandmother. Maternal Grandmother. Heart Disease Status:Active Comments:Materna l Grandfather. Paternal Grandfather. Hypertension Status:Active Comments:Mother. Sister. Osteoarthritis Status:Active Comments:Father. Sister. Ovarian Cancer Status:Active Comments:Mother. Pulmonary Fibrosis Status:Active Comments:Fath er. Breast Cancer Status:Active Comments:Sister. Coronary Artery Disease Status:Active Comments :Father. Diabetes Mellitus Type II Status:Active Commen ts:Mother. Paternal Grandmother. Maternal Grandmother. Heart Disease Status:Active Comments:Materna l Grandfather. Paternal Grandfather. Hypertension Status:Active Comments:Mother. Sister. Osteoarthritis Status:Active Comments:Father. Sister. Ovarian Cancer Status:Active Comments:Mother. Pulmonary Fibrosis Status:Active Comments:Fath er. Breast Cancer Status:Active Comments:Sister. Coronary Artery Disease Status:Active Comments :Father. Diabetes Mellitus Type II Status:Active Commen ts:Mother. Paternal Grandmother. Maternal Grandmother. Heart Disease Status:Active Comments:Materna l Grandfather. Paternal Grandfather. Hypertension Status:Active Comments:Mother. Sister. Osteoarthritis Status:Active Comments:Father. Sister. Ovarian Cancer Status:Active Comments:Mother. Pulmonary Fibrosis Status:Active Comments:Fath er. Breast Cancer Status:Active Comments:Sister. Coronary Artery Disease Status:Active Comments :Father. Diabetes Mellitus Type II Status:Active Commen ts:Mother. Paternal Grandmother. Maternal Grandmother. Heart Disease Status:Active Comments:Materna l Grandfather. Paternal Grandfather. Hypertension Status:Active Comments:Mother. Sister. Osteoarthritis Status:Active Comments:Father. Sister. Ovarian Cancer Status:Active Comments:Mother. Pulmonary Fibrosis Status:Active Comments:Fath er. Breast Cancer Status:Active Comments:Sister. Coronary Artery Disease Status:Active Comments :Father. Diabetes Mellitus Type II Status:Active Commen ts:Mother. Paternal Grandmother. Maternal Grandmother. Heart Disease Status:Active Comments:Materna l Grandfather. Paternal Grandfather. Hypertension Status:Active Comments:Mother. Sister. Osteoarthritis Status:Active Comments:Father. Sister. Ovarian Cancer Status:Active Comments:Mother. Pulmonary Fibrosis Status:Active Comments:Fath er. Breast Cancer Status:Active Comments:Sister. Coronary Artery Disease Status:Active Comments :Father. Diabetes Mellitus Type II Status:Active Commen ts:Mother. Paternal Grandmother. Maternal Grandmother. Heart Disease Status:Active Comments:Materna l Grandfather. Paternal Grandfather. Hypertension Status:Active Comments:Mother. Sister. Osteoarthritis Status:Active Comments:Father. Sister. Ovarian Cancer Status:Active Comments:Mother. Pulmonary Fibrosis Status:Active Comments:Fath er. Advance Directives Living Will - Effective on . Expiration date unspecified. Scanned Document is available upon request. Effective:24-Apr-2024 Living Will - Effective on . Expiration date unspecified. Scanned Document is available upon request. Effective:24-Apr-2024 Living Will - Effective on . Expiration date unspecified. Scanned Document is available upon request. Effective:24-Apr-2024 Living Will - Effective on . Expiration date unspecified. Scanned Document is available upon request. Effective:24-Apr-2024 Living Will - Effective on . Expiration date unspecified. Scanned Document is available upon request. Effective:24-Apr-2024 Living Will - Effective on . Expiration date unspecified. Scanned Document is available upon request. Effective:24-Apr-2024 Living Will - Effective on . Expiration date unspecified. Scanned Document is available upon request. Effective:24-Apr-2024 Living Will - Effective on . Expiration date unspecified. Scanned Document is available upon request. Effective:24-Apr-2024 Living Will - Effective on . Expiration date unspecified. Scanned Document is available upon request. Effective:24-Apr-2024 Living Will - Effective on . Expiration date unspecified. Scanned Document is available upon request. Effective:24-Apr-2024 Living Will - Effective on . Expiration date unspecified. Scanned Document is available upon request. Effective:24-Apr-2024 Living Will - Effective on . Expiration date unspecified. Scanned Document is available upon request. Effective:24-Apr-2024 Living Will - Effective on . Expiration date unspecified. Scanned Document is available upon request. Effective:24-Apr-2024 Living Will - Effective on . Expiration date unspecified. Scanned Document is available upon request. Effective:24-Apr-2024 Living Will - Effective on . Expiration date unspecified. Scanned Document is available upon request. Effective:24-Apr-2024 Living Will - Effective on . Expiration date unspecified. Scanned Document is available upon request. Effective:24-Apr-2024 Living Will - Effective on . Expiration date unspecified. Scanned Document is available upon request. 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 May 26, 2025 12:52pm Family history of breast cancer May 12:52pm Encounter for routine gynecological exam ination May 26, 2025 12:52pm Additional Source Comments INFORMATION SOURCE (unrecogn ized section and content) DATE CREATED AUTHOR 08/28/2019 [facility] ([place]) DATE CREATED AUTHOR AUTHOR'S ORGANIZ ATION 02/13/2024 [facility] ([place] DATE CREATED AUTHOR AUTHOR'S ORGANIZ ATION 05/02/2024 [facility] DATE CREATED AUTHOR AUTHOR'S ORGANIZ ATION 07/15/2024 [facility] DATE CREATED AUTHOR AUTHOR'S ORGANIZ ATION 05/17/2025 [facility] DATE CREATED AUTHOR AUTHOR'S ORGANIZ ATION 05/25/2025 [facility] Care Teams (unrecognized sec tion and content) Team Status: Active Member Role Status Dates Dr. Eduardo Shook MD Family Provider Active Dr. Eduardo Shook MD Primary Care Provider Active Team Status: Inactive Member Role Status Dates Dr. Eduardo Shook MD Primary Care Provider, Referring Provider Active Monie León ALIGNER, ALIGNER-C Attending Provider Active Team Status: Inactive Member Role Status Dates Dr. Eduardo Shook MD Primary Care Provider Active Monie León ALIGNER, ALIGNER-C Attending Provider, Referring Provider Active Team Status: Active Member Role/Relationship Status Dates Dr. Eduardo Shook MD Primary Care Provider Active Team Status: Active Member Role/Relationship Status Dates Dr. Eduardo Shook MD Primary Care Provider Active Start: May 26, 2025 Dr. Griselda Ward MD Attending Provider Active Start: May 26, 2025 Dr. Griselda Ward MD Referring Provider Active Start: May 26, 2025 Team Status: Inactive Member Role/Relationship Status Dates Dr. Eduardo Shook MD Primary Care Provider Active Start: May 26, 2025 End: May 26, 2025 Dr. Eduardo Shook MD Referring Provider Active S tart: May 26, 2025 End: May 26, 2025 Dr. Griselda Ward MD Attending Provider Active Start: May 26, 2025 End: May 26, 2025 Goals (unrecognized section and content) Goals may be documented in a n alternate section No data available for this sectionGoals may be documented in an alternate section FOR RECORDS PERTAINING TO PATIENTS WHO ARE OR HAVE BEEN ENROLLED IN A CHEMICAL DEPENDENCY/SUBSTANCEABUSE PROGRAM, SOME INFORMATION MAY BE OMITTED. This clinical summary was aggregated from multiple sources. Caution should be exercised in using it in the provision of clinical care. This summary normalizes information from multiple sources, and as a consequence, information in this document may materially change the coding, format and clinical context of patient data. In addition, data may be omitted in some cases. CLINICAL DECISIONS SHOULD BE BASED ON THE PRIMARY CLINICAL RECORDS. [facility] [employer] [facility]. provides no warranty or guarantee of the accuracy or completeness of information in this document.
== END | disposition home or self-care (01) ==
LOC: OPBI 12:20
PROVIDERS: PCP Family Medicine; Referring Provider Obstetrics & Gynecology; Visit Provider Obstetrics & Gynecology
DX: Z12.31 Encounter for screening mammogram for malignant neoplasm of breast (principal)
CPT/HCPCS: 77063; 77067